=== PATIENT | female | born 1975 | race Caucasian/White ===

== ENCOUNTER 2017-04-05 04:19 | Emergency (ER) | payer BC, OTHER ==
[2017-04-05] MEDS ORDERED: METOCLOPRAMIDE 10 MG/2 ML VIAL IVP STA (04:28)
[2017-04-05] MEDS ORDERED: diphenhydrAMINE INJ 50 MG/ML VIAL IVP STA (04:28)
[2017-04-05] MEDS ORDERED: KETOROLAC 60 MG/2 ML VIAL IVP STA (04:28)
[2017-04-05] MEDS ORDERED: SODIUM CHLORIDE 0.9% 1,000 ML IV ONE (04:28)
--- NOTE | 2017-04-05 04:31 | ED Physician Documentation ---
PD HPI HEADACHE - Stated complaint Stated Complaint: HEADACHE,HIGH BLOOD PRESSURE - Chief complaint Chief Complaint: Neuro - History obtained from History obtained from: Patient - History of Present Illness Timing - onset: How many days ago (3) Timing - onset during: Rest Timing - details: Gradual onset, Still present, Intermittant Location: Front, Global Quality: Aching, Stabbing Associated symptoms: Nausea, Vomiting. No: Fever, Stiff neck, Weakness, Numbness Worsened by: Light, Noise Similar symptoms before: Work up / diagnostics, Treatment Recently seen: Not recently seen - Additional information Additional information: Patient is a 41 year old female with a history of headaches who is presenting to the emergency department for headache. patient states that it started a few days ago. it started slowly and got progressively worse. patient states that it is typical of her migraines but it wont go away. Patient states that she has been throwing up due to the pain. Patient denies any fever, chills or neck pain. Review of Systems Constitutional: denies: Fever, Chills Eyes: reports: Photophobia. denies: Discharge, Irritation Ears: denies: Ear pain, Drainage/discharge Nose: denies: Congestion, Sinus pressure / pain Throat: denies: Oral lesions / sores, Sore throat Cardiac: denies: Chest pain / pressure, Palpitations Respiratory: denies: Dyspnea, Cough, Wheezing GI: denies: Nausea, Vomiting : reports: Reviewed and negative Skin: reports: Reviewed and negative Musculoskeletal: denies: Neck pain, Back pain, Extremity pain Neurologic: reports: Headache. 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 HEENT: Tonsil/Adenoidectomy - Present Medications Home Medications: Ambulatory Orders Medication Instructions Recorded Confirmed Aspirin/Acetaminophen/Caffeine 2 each PO DAILY PRN 09/27/14 04/05/17 [Excedrin Migraine Caplet] Ibuprofen 600 - 800 mg PO DAILY 09/27/14 12/21/14 Propranolol [Inderal] 10 mg PO TID PRN 09/27/14 04/05/17 - Allergies Allergies/Adverse Reactions: Allergies Allergy/AdvReac Type Severity Reaction Status Date / Time Sulfa (Sulfonamide AdvReac Intermediate Hives Verified 04/05/17 04:26 Antibiotics) - Social History Does the pt smoke?: No Smoking Status: Never smoker Does the pt drink ETOH?: No Does the pt have substance abuse?: No - Immunizations Immunizations are current?: Yes - POLST Patient has POLST: No POLST Status: Full Code PD ED PE NORMAL - Vitals Vital signs reviewed: Yes - General General: Alert and oriented X 3 - HEENT HEENT: Atraumatic - Neck Neck: Supple, no meningeal sign - Cardiac Cardiac: RRR, No murmur - Respiratory Respiratory: No respiratory distress - Derm Derm: Normal color, No rash - Neuro Neuro: Alert and oriented X 3, tube man 2-12 intact, No motor deficit, No sensory deficit, Normal speech Eye Opening: Spontaneous Motor: Obeys Commands Verbal: Oriented GCS Score: 15 PD ED PE EXPANDED - General General: Alert, Disheveled, poorly kept, In Pain - HEENT HEENT: Dry mucous membranes - Eyes Eyes: Other (bilateral dilated pupils) Results - Vitals Vitals: Vital Signs - 24 hr 04/05/17 04/05/17 04/05/17 04:24 04:55 06:00 Temperature 36.2 C L Heart Rate 78 112 H 120 H Respiratory 20 22 20 Rate Blood Pressure 164/100 H 180/104 H 176/98 H O2 Saturation 96 98 100 Oxygen O2 Source Nasal cannula Oxygen Flow Rate 2 - EKG (time done) 0552 Rate: Rate (enter#) (70) Rhythm: NSR [place]: Normal Intervals: Normal [place] Ischemia: T wave inversion, Other (t wave inversions in v2 and V3 consistent with wellen's criteria) Compare to prior EKG: Changed from prior EKG - Labs Labs: Laboratory Tests 04/05/17 04/05/17 04/05/17 04:45 04:45 04:45 WBC 15.5 H RBC 5.17 Hgb 15.0 Hct 45.3 MCV 87.5 MCH 29.1 MCHC 33.2 RDW 14.0 Plt Count 348 MPV 9.3 Neut # 13.9 H Lymph # 1.1 L King # 0.4 Eos # 0.0 Baso # 0.1 Absolute Nucleated RBC 0.00 Nucleated RBC % 0.0 D-Dimer Sodium 141 Potassium 3.6 Chloride 103 Carbon Dioxide 22 Anion Gap 16.0 H BUN 16 Creatinine 1.0 Estimated GFR (MDRD) 61 L Glucose 162 H Calcium 10.3 Total Bilirubin 1.0 AST 24 ALT 22 Alkaline Phosphatase 62 Troponin I 0.08 Total Protein 9.1 H Albumin 5.8 H Globulin 3.3 Albumin/Globulin Ratio 1.8 Lipase 56 H Urine Color Urine Clarity Urine pH Ur Specific [place] Urine Protein Urine Glucose (UA) Urine Ketones Urine Occult Blood Urine Nitrite Urine Bilirubin Urine Urobilinogen Ur Leukocyte Esterase Urine RBC Urine WBC Ur Squamous Epith Cells Urine Bacteria Urine Mucus Ur Microscopic Review Urine Culture Comments Urine HCG, Qual Urine Opiates Screen Ur Oxycodone Screen Urine Methadone Screen Ur Propoxyphene Screen Ur Barbiturates Screen Ur Tricyclics Screen Ur Phencyclidine Scrn Ur Amphetamine Screen U Methamphetamines Scrn U Benzodiazepines Scrn Urine Cocaine Screen U Cannabinoids Screen 04/05/17 04/05/17 04/05/17 04:45 05:26 05:26 WBC RBC Hgb Hct MCV MCH MCHC RDW Plt Count MPV Neut # Lymph # King # Eos # Baso # Absolute Nucleated RBC Nucleated RBC % D-Dimer < 200.0 L Sodium Potassium Chloride Carbon Dioxide Anion Gap BUN Creatinine Estimated GFR (MDRD) Glucose Calcium Total Bilirubin AST ALT Alkaline Phosphatase Troponin I Total Protein Albumin Globulin Albumin/Globulin Ratio Lipase Urine Color YELLOW Urine Clarity CLEAR Urine pH 6.0 Ur Specific [place] >=1.030 H Urine Protein 30 H Urine Glucose (UA) NEGATIVE Urine Ketones 15 H Urine Occult Blood TRACE-INTA Urine Nitrite NEGATIVE Urine Bilirubin NEGATIVE Urine Urobilinogen 0.2 (NORMAL) Ur Leukocyte Esterase NEGATIVE Urine RBC 0-5 Urine WBC 0-3 Ur Squamous Epith Cells MOD Squamous H Urine Bacteria Few Urine Mucus Moderate Strands Ur Microscopic Review INDICATED Urine Culture Comments NOT INDICATED Urine HCG, Qual NEGATIVE Urine Opiates Screen NEGATIVE Ur Oxycodone Screen NEGATIVE Urine Methadone Screen NEGATIVE Ur Propoxyphene Screen NEGATIVE Ur Barbiturates Screen NEGATIVE Ur Tricyclics Screen NEGATIVE Ur Phencyclidine Scrn NEGATIVE Ur Amphetamine Screen NEGATIVE U Methamphetamines Scrn NEGATIVE U Benzodiazepines Scrn NEGATIVE Urine Cocaine Screen NEGATIVE U Cannabinoids Screen POSITIVE H PD MEDICAL DECISION MAKING - ED course Complexity details: reviewed old records, reviewed results, re-evaluated patient , considered differential, d/w patient, d/w home care consultant ED course: Patient was seen and examined at bedside. IV access was gained and labs were drawn. Patient was treated with toradol, reglan benadryl and fluids. Patient had no focal neurological deficits. Upon re-evaluation patient stated that her headache was getting better but she developed severe chest pain with radiation to her back and worse with inspiration. troponin, d-dimer and ekg were ordered. EKG showed deep t wave inversions in V2 and V3. Patient's previous ekgs were viewed and had no inversions but similar r wave progression. It fit wellen's criteria. [place] was contacted and STEMI was called. Patient was treated with aspirin and a heparin drip was started. Patient was transferred in critical condition. Departure - Departure Disposition: 02 Transfer Acute Care Hosp Clinical Impression: STEMI (ST elevation myocardial infarction) Condition: Critical
[2017-04-05 04:57] LABS: BASOPHILS # (AUTO) 0.1 10^3/uL (0.0-0.1); BASOPHILS % (AUTO) 0.5 %; EOSINOPHILS % (AUTO) 0.1 %; LYMPHOCYTES # (AUTO) 1.1 10^3/uL (1.5-3.5); LYMPHOCYTES % (AUTO) 7.1 %; MEAN CORPUSCULAR HEMOGLOBIN 29.1 pg (27.0-31.0); MEAN CORPUSCULAR HGB CONC 33.2 g/dL (32.0-36.0); MEAN CORPUSCULAR VOLUME 87.5 fL (81.0-99.0); MEAN PLATELET VOLUME 9.3 fL (7.9-10.8); MONOCYTES # (AUTO) 0.4 10^3/uL (0.0-1.0); MONOCYTES % (AUTO) 2.6 %; NEUTROPHILS # (AUTO) 13.9 10^3/uL (1.5-6.6); NEUTROPHILS % (AUTO) 89.7 %; PLT - PLATELET COUNT 348 10^3/uL (130-450); RED BLOOD COUNT 5.17 10^6/uL (4.20-5.40); WHITE BLOOD COUNT 15.5 x10^3/uL (4.8-10.8)
[2017-04-05 05:06] LABS: ALBUMIN 5.8 g/dL (3.2-5.5); ALBUMIN/GLOBULIN RATIO 1.8 (1.0-2.2); CALCIUM 10.3 mg/dL (8.5-10.3); TOTAL PROTEIN 9.1 g/dL (6.7-8.2)
[2017-04-05] MEDS ORDERED: diazePAM INJ 5 MG/ML SYRINGE IVP STA (05:39)
[2017-04-05] MEDS ORDERED: LORazepam 2 MG/ML VIAL IVP STA (05:48)
[2017-04-05 05:59] LABS: MUDS CUTOFF CONCENTRATIONS CUTOFF CONC BELOW:
[2017-04-05 06:01] LABS: BILIRUBIN,URINE NEGATIVE (NEGATIVE); GLUCOSE, URINE (UA) NEGATIVE (NEGATIVE); KETONES,URINE (UA) 15 mg/dL (NEGATIVE); LEUKOCYTE ESTERASE, URINE NEGATIVE (NEGATIVE); NITRITE,URINE NEGATIVE (NEGATIVE); OCCULT BLOOD,URINE TRACE-INTA (NEGATIVE); PROTEIN,URINE 30 mg/dL (NEGATIVE); UROBILINOGEN,URINE 0.2 (NORMAL) E.U./dL (NORMAL)
[2017-04-05] MEDS ORDERED: ASPIRIN CHEW 81 MG TABLET PO STA (06:03)
[2017-04-05] MEDS ORDERED: HEPARIN 25,000 UNITS/500 ML NS 25,000 UNIT/500 ML BAG IV STA (06:03)
[2017-04-05] MEDS ORDERED: HEPARIN 5,000 UNIT/ML VIAL IVP ONE (06:03)
[2017-04-05 06:04] LABS: CLARITY,URINE CLEAR (CLEAR); HCG UR QUAL NEGATIVE
[2017-04-05 06:08] LABS: BACTERIA,URINE Few /HPF (None Seen); MUCUS,URINE Moderate Strands; RBC,URINE 0-5 /HPF (0-5); SQUAMOUS EPITHELIAL CELL,UR MOD Squamous (<= Few)
[2017-04-05 06:25] VITALS: BP 176/98
[2017-04-05 06:30] LABS: AMPHETAMINE SCREEN,URINE NEGATIVE (NEGATIVE); BENZODIAZEPINES SCREEN, URINE NEGATIVE (NEGATIVE); COCAINE SCREEN URINE NEGATIVE (NEGATIVE); METHADONE SCREEN, URINE NEGATIVE (NEGATIVE); METHAMPHETAMINES SCREEN, URINE NEGATIVE (NEGATIVE); OPIATE SCREEN, URINE NEGATIVE (NEGATIVE); OXYCODONE SCREEN, URINE NEGATIVE (NEGATIVE); PROPOXYPHENE SCREEN, URINE NEGATIVE (NEGATIVE); TRICYCLIC ANTIDEPRESSANT,URINE NEGATIVE (NEGATIVE)
== END 2017-04-05 06:09 | disposition short-term general hospital (02) ==
LOC: ED 04:19
DX: I21.3 ST elevation (STEMI) myocardial infarction of unspecified site (principal); I45.81 Long QT syndrome; Z79.82 Long term (current) use of aspirin
CPT/HCPCS: 36415; 80053; 80306; 81001; 81025; 83690; 84484; 85025; 85379; 93005; 96361; 96374; 96375; 99285; A9270; J2060; 81003; 87086

== ENCOUNTER 2017-04-05 06:23 | Outpatient (CLI) | payer OTHER | END 2017-04-05 06:24 | disposition short-term general hospital (02) | LOC: EMS 06:23 | PROVIDERS: ATTEND Surgery | DX: I21.3 ST elevation (STEMI) myocardial infarction of unspecified site (principal) | CPT/HCPCS: A0425; A0427 ==

== ENCOUNTER 2017-08-26 13:06 | Outpatient (CLI) | payer OTHER | END 2017-08-26 13:07 | disposition home or self-care (01) | LOC: LAB.F 13:06 | PROVIDERS: ATTEND Physician Assistant Medical | DX: E55.9 Vitamin D deficiency, unspecified (principal) | CPT/HCPCS: 36415; 82306 ==

== ENCOUNTER 2018-01-27 23:28 | Emergency (ER) | payer OTHER ==
--- NOTE | 2018-01-27 23:45 | ED Physician Documentation ---
PD HPI CHEST PAIN - Stated complaint Stated Complaint: VOMITING,CHEST PAIN - Chief complaint Chief Complaint: Cardiac - History obtained from History obtained from: Patient - History of Present Illness Timing - onset: Enter time (18:30), Today Timing - onset during: Light activity (preparing food at home) Timing - duration: Hours Timing - details: Abrupt onset Pain level now: 6 Quality: Pain Location: Substernal, Left chest, Epigastric Radiation: Back Improved by: Nothing Worsened by: Other (no exacerbating factors) Associated symptoms: Nausea, Vomiting. No: Shortness of air, Palpitations, Cough Similar symptoms before: Other (had similar episode in March (2017), transferred to [facility] for possible STEMI; patient indicates that she was subsequently discharged from [facility] and was told there was no evidence of DE on their evaluation and her symptoms were possibly related to her migraines.) - Additional information Additional information: sudden onset of nausea, rapidly followed by vomiting, 6:30 PM tonight while preparing dinner. She subsequently had onset of lower chest and upper abdominal pain that radiates around flanks to her back Review of Systems Constitutional: reports: Reviewed and negative Cardiac: reports: Chest pain / pressure. denies: Palpitations, Pedal edema, Calf pain Respiratory: reports: Reviewed and negative GI: reports: Abdominal Pain, Nausea, Vomiting. 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 HEENT: Tonsil/Adenoidectomy - Present Medications Home Medications: Ambulatory Orders Medication Instructions Recorded Confirmed Aspirin/Acetaminophen/Caffeine 2 each PO DAILY PRN 09/27/14 04/05/17 [Excedrin Migraine Caplet] Ibuprofen 600 - 800 mg PO DAILY 09/27/14 12/21/14 Propranolol [Inderal] 10 mg PO TID PRN 09/27/14 04/05/17 Lidocaine HCl [Lidocaine HCl 15 ml PO TID PRN #100 ml 01/28/18 Viscous] Promethazine [Phenergan] 25 - 50 mg PO Q6H PRN #10 tab 01/28/18 oxyCODONE [Roxicodone] 5 - 10 mg PO Q6H PRN #14 tablet 01/28/18 - Allergies Allergies/Adverse Reactions: Allergies Allergy/AdvReac Type Severity Reaction Status Date / Time zolpidem [From Ambien] Allergy Unknown Verified 01/28/18 07:41 Sulfa (Sulfonamide AdvReac Intermediate Hives Verified 01/27/18 23:43 Antibiotics) - Social History Does the pt smoke?: No Smoking Status: Never smoker Does the pt drink ETOH?: No Does the pt have substance abuse?: No - Immunizations Immunizations are current?: Yes - POLST Patient has POLST: No POLST Status: Full Code PD ED PE NORMAL - Vitals Vital signs reviewed: Yes - General General: Alert and oriented X 3, Well developed/nourished, Other (appears to be in painful distress; tremulous) - HEENT HEENT: PERRL, EOMI, Moist mucous membranes - Neck Neck: Supple, no meningeal sign - Cardiac Cardiac: No murmur, No gallop, No rub - Respiratory Respiratory: No respiratory distress, Clear bilaterally - Abdomen Abdomen: Soft, Non distended, Other (mild/moderate tenderness to palpation epigastrium without rebound or guarding) - Back Back: No CVA TTP - Derm Derm: Normal color, Warm and dry - Extremities Extremities: No edema PD ED PE EXPANDED - Cardiac Cardiac: Tachy, Regular Rhythm Results - Vitals Vitals: Vital Signs - 24 hr 01/28/18 01/28/18 08:11 08:49 Heart Rate 74 86 Respiratory 18 16 Rate Blood Pressure 133/108 H 149/85 H O2 Saturation 98 99 Oxygen O2 Source Room air - EKG (time done) No standard instances Rate: Rate (enter#) (128), Tachy Rhythm: Sinus tachycardia [place]: Normal Intervals: Normal [place] QRS: Normal Ischemia: Normal ST segments. No: T wave inversion Other comments: Other comments (artifact due to tremulousness) - Labs Labs: Laboratory Tests 01/27/18 01/27/18 01/27/18 23:30 23:30 23:30 WBC 11.8 H RBC 5.15 Hgb 15.3 Hct 46.3 MCV 89.9 MCH 29.6 MCHC 33.0 RDW 14.1 Plt Count 277 MPV 9.0 Neut # (Auto) 9.3 H Lymph # (Auto) 1.8 [place] # (Auto) 0.5 Eos # (Auto) 0.0 Baso # (Auto) 0.1 Absolute Nucleated RBC 0.00 Nucleated RBC % 0.0 D-Dimer Sodium 142 Potassium 3.5 Chloride 103 Carbon Dioxide 23 Anion Gap 16.0 H BUN 8 Creatinine 1.0 Estimated GFR (MDRD) 60 L Glucose 107 H Calcium 10.3 Total Bilirubin 0.8 AST 25 ALT 12 Alkaline Phosphatase 55 Troponin I < 0.04 Total Protein 9.7 H Albumin 6.4 H Globulin 3.3 Albumin/Globulin Ratio 1.9 Lipase 63 H 01/27/18 23:30 WBC RBC Hgb Hct MCV MCH MCHC RDW Plt Count MPV Neut # (Auto) Lymph # (Auto) [place] # (Auto) Eos # (Auto) Baso # (Auto) Absolute Nucleated RBC Nucleated RBC % D-Dimer < 200.0 L Sodium Potassium Chloride Carbon Dioxide Anion Gap BUN Creatinine Estimated GFR (MDRD) Glucose Calcium Total Bilirubin AST ALT Alkaline Phosphatase Troponin I Total Protein Albumin Globulin Albumin/Globulin Ratio Lipase - Rads (name of study) chest xray Radiology: Prelim report reviewed, See rad report CT A/P Radiology: Prelim report reviewed, See rad report PD MEDICAL DECISION MAKING - ED course Complexity details: reviewed old records (records reviewed include ED visit from March 2017 as well as records from [facility] (where she was transferred; records reviewed on )), reviewed results, re-evaluated patient, considered differential, d/w patient ED course: nausea controlled with IV phenergan (she had taken 8mg TL Zofran [employer] without improvement). Her pain waxed and waned despite toradol, GI cocktail, and repeated doses of morphine; she reported improvement after each of these were given. She appeared more comfortable after initial medications were given, although she appeared to still be in pain until late in ED stay. I offered admission for ongoing symptom control and further testing, but she reports she feels comfortable enough to go home. ED tests are nondiagnostic although CT A/P suggests gastritis/PUD, which would be c/w symptoms and location of discomfort. Encouraged to return immediately if worse in any way, and to f/u with PMD Departure - Departure Disposition: 01 Home, Self Care Clinical Impression: Abdominal pain Qualifiers: Abdominal location: epigastric Qualified Code(s): R10.13 - Epigastric pain Condition: Good Instructions: ED Abdominal Pain Unkn Cause Follow-Up: Keiko Sánchez PA-C [Primary Care Provider] - Prescriptions: Lidocaine HCl [Lidocaine HCl Viscous] 15 ml PO TID PRN #100 ml PRN Reason: Abdominal Pain oxyCODONE [Roxicodone] 5 - 10 mg PO Q6H PRN #14 tablet PRN Reason: Pain Promethazine [Phenergan] 25 - 50 mg PO Q6H PRN #10 tab PRN Reason: Nausea / Vomiting Comments: You should take either Prilosec or Nexium once per day for 2 weeks. These are both available [id number] and thus no prescription is necessary; follow instructions on label. Discharge Date/Time: 01/28/18 09:00
[2018-01-27 23:55] LABS: BASOPHILS # (AUTO) 0.1 10^3/uL (0.0-0.1); BASOPHILS % (AUTO) 0.9 %; EOSINOPHILS % (AUTO) 0.1 %; HGB - HEMOGLOBIN 15.3 g/dL (12.0-16.0); LYMPHOCYTES # (AUTO) 1.8 10^3/uL (1.5-3.5); LYMPHOCYTES % (AUTO) 15.2 %; MEAN CORPUSCULAR HEMOGLOBIN 29.6 pg (27.0-31.0); MEAN CORPUSCULAR VOLUME 89.9 fL (81.0-99.0); MONOCYTES # (AUTO) 0.5 10^3/uL (0.0-1.0); MONOCYTES % (AUTO) 4.4 %; NEUTROPHILS # (AUTO) 9.3 10^3/uL (1.5-6.6); NEUTROPHILS % (AUTO) 79.4 %; PLT - PLATELET COUNT 277 10^3/uL (130-450); RED BLOOD COUNT 5.15 10^6/uL (4.20-5.40); RED CELL DISTRIBUTION WIDTH 14.1 % (12.0-15.0); WHITE BLOOD COUNT 11.8 x10^3/uL (4.8-10.8)
[2018-01-28] MEDS ORDERED: PROMETHAZINE INJ 25 MG in SODIUM CHLORIDE 0.9% 50 ML IV STA (00:01)
[2018-01-28] MEDS ORDERED: MORPHINE 10 MG/ML VIAL IVP STA ×2 (00:01→04:55)
[2018-01-28 00:15] LABS: ALBUMIN 6.4 g/dL (3.2-5.5); ALBUMIN/GLOBULIN RATIO 1.9 (1.0-2.2); BILIRUBIN,TOTAL 0.8 mg/dL (0.2-1.0); CALCIUM 10.3 mg/dL (8.5-10.3); TOTAL PROTEIN 9.7 g/dL (6.7-8.2)
--- NOTE | 2018-01-28 01:20 | XRAY Report ---
Reason: chest pain Procedure Date: 01/28/2018 Accession Number: [id number] / [id number] Procedure: XR - Chest 2 View X-Ray CPT Code: 14788 FULL RESULT: EXAM: CHEST RADIOGRAPHY EXAM DATE: 01/28/2018 01:11 AM. CLINICAL HISTORY: Chest pain. COMPARISON: None. TECHNIQUE: 2 views. FINDINGS: Lungs/Pleura: No focal opacities evident. No pleural effusion. No pneumothorax. Normal volumes. Mediastinum: Heart and mediastinal contours are unremarkable. Other: None. IMPRESSION: Normal 2-view chest radiography. RADIA
[2018-01-28] MEDS ORDERED: KETOROLAC 60 MG/2 ML VIAL IVP STA (01:23)
[2018-01-28] MEDS ORDERED: MORPHINE 2 MG/ML CARPUJECT IVP STA (01:23)
[2018-01-28] MEDS ORDERED: SODIUM CHLORIDE 0.9% 1,000 ML IV STA (01:55)
[2018-01-28] MEDS ORDERED: IOPAMIDOL-300 100 ML VIAL ONE (02:43)
[2018-01-28] MEDS ORDERED: IOPAMIDOL-300 100 ML VIAL IVP ONE (03:15)
--- NOTE | 2018-01-28 03:21 | CT Report ---
Reason: abd. pain Procedure Date: 01/28/2018 Accession Number: [id number] / [id number] Procedure: CT - Abdomen/Pelvis W/ CPT Code: FULL RESULT: EXAM: CT ABDOMEN AND PELVIS EXAM DATE: 01/28/2018 03:00 AM. CLINICAL HISTORY: Abdominal pain. COMPARISONS: None. TECHNIQUE: Routine helical CT imaging was performed through the abdomen and pelvis. IV contrast: 100 mL Isovue 300. Enteric contrast: No. Reconstructions: Coronal and sagittal. In accordance with CT protocol optimization, one or more of the following dose reduction techniques were utilized for this exam: automated exposure control, adjustment of mA and/or KV based on patient size, or use of iterative reconstructive technique. FINDINGS: Lung Bases: Unremarkable. Liver: Unremarkable. No suspicious masses. Gallbladder/Bile Ducts: Unremarkable. Spleen: Unremarkable. Pancreas: Unremarkable. Adrenal Glands: Unremarkable. Kidneys: Unremarkable. No suspicious masses or hydronephrosis. Peritoneal Cavity/Bowel: Distal stomach appears mildly edematous. No perigastric inflammatory changes seen. No free air or significant free fluid. No masses or adenopathy. The appendix is normal. No excessive stool burden. Pelvic Organs: Bladder, uterus, and adnexa appear unremarkable. Vasculature: No aneurysms or other significant abnormality. Bones: No significant abnormality. Other: None. IMPRESSION: Subtle findings suspicious for distal gastritis/peptic ulcer disease. No apparent complication if real. Consider endoscopy. RADIA
[2018-01-28] MEDS ORDERED: MAG HYDROX/AL HYDROX/SIMETH 30 ML UDC PO STA (03:47)
[2018-01-28] MEDS ORDERED: LIDOCAINE VISCOUS 2% 15 ML UDC MM STA ×2 (03:47→04:56)
[2018-01-28] MEDS ORDERED: PHENobarb/HYOSCY/ATROPINE/SCOP 5 ML UDC PO STA (03:47)
[2018-01-28] MEDS ORDERED: PANTOPRAZOLE 40 MG TABLET PO STA (07:46)
[2018-01-28] MEDS ORDERED: oxyCODONE 5 MG TABLET PO STA (07:58)
[2018-01-28 08:52] VITALS: BP 149/85
== END 2018-01-28 09:00 | disposition home or self-care (01) ==
LOC: ED 23:28
DX: R10.13 Epigastric pain (principal); Z79.82 Long term (current) use of aspirin; R00.0 Tachycardia, unspecified
CPT/HCPCS: 36415; 71046; 74177; 80053; 83690; 84484; 85025; 85379; 93005; 96365; 96375; 96376; 99283; 99285; A9270; J7040; Q9967

== ENCOUNTER 2018-01-31 06:35 | Emergency (ER) | payer OTHER ==
[2018-01-31] MEDS ORDERED: IOPAMIDOL-300 100 ML VIAL IVP ONE ×2 (06:36→12:48)
[2018-01-31 07:09] LABS: BASOPHILS # (AUTO) 0.1 10^3/uL (0.0-0.1); BASOPHILS % (AUTO) 1.1 %; EOSINOPHILS % (AUTO) 0.1 %; HGB - HEMOGLOBIN 13.9 g/dL (12.0-16.0); LYMPHOCYTES # (AUTO) 0.8 10^3/uL (1.5-3.5); LYMPHOCYTES % (AUTO) 7.4 %; MEAN CORPUSCULAR HEMOGLOBIN 29.9 pg (27.0-31.0); MEAN CORPUSCULAR HGB CONC 32.6 g/dL (32.0-36.0); MEAN CORPUSCULAR VOLUME 91.5 fL (81.0-99.0); MEAN PLATELET VOLUME 9.2 fL (7.9-10.8); MONOCYTES # (AUTO) 0.2 10^3/uL (0.0-1.0); MONOCYTES % (AUTO) 1.8 %; NEUTROPHILS % (AUTO) 89.6 %; PLT - PLATELET COUNT 219 10^3/uL (130-450); RED BLOOD COUNT 4.65 10^6/uL (4.20-5.40); RED CELL DISTRIBUTION WIDTH 14.1 % (12.0-15.0); WHITE BLOOD COUNT 11.1 x10^3/uL (4.8-10.8)
[2018-01-31] MEDS ORDERED: FAMOTIDINE 20 MG in SODIUM CHLORIDE 0.9% 50 ML IV ONE (07:09)
[2018-01-31] MEDS ORDERED: SODIUM CHLORIDE 0.9% 1,000 ML IV ONE ×2 (07:09→11:49)
[2018-01-31] MEDS ORDERED: ONDANSETRON 4 MG/2 ML VIAL IVP STA ×2 (07:09→14:25)
[2018-01-31] MEDS ORDERED: fentaNYL 100 MCG/2 ML VIAL IVP STA (07:15)
[2018-01-31] MEDS ORDERED: MAG HYDROX/AL HYDROX/SIMETH 30 ML UDC PO STA (07:15)
[2018-01-31] MEDS ORDERED: LIDOCAINE VISCOUS 2% 15 ML UDC MM STA (07:15)
[2018-01-31] MEDS ORDERED: PROMETHAZINE INJ 25 MG in SODIUM CHLORIDE 0.9% 50 ML IV STA (07:36)
[2018-01-31] MEDS ORDERED: LORazepam 2 MG/ML VIAL IVP STA (07:36)
--- NOTE | 2018-01-31 07:50 | XRAY Report ---
Reason: cp, N/V Procedure Date: 01/31/2018 Accession Number: [id number] / [id number] Procedure: XR - Chest 2 View X-Ray CPT Code: 01003 FULL RESULT: EXAM: CHEST RADIOGRAPHY EXAM DATE: 01/31/2018 07:18 AM. CLINICAL HISTORY: Cp, N/V. COMPARISON: CHEST 2 VIEW 01/28/2018 12:58 AM. TECHNIQUE: 2 views. FINDINGS: Lungs/Pleura: No focal consolidation evident. Minimal biapical scarring. No pleural effusion. No pneumothorax. Upper normal volumes. Mediastinum: Heart and mediastinal contours are normal. Other: None. IMPRESSION: No radiographically apparent acute abnormality in the chest. No significant change from prior. RADIA
[2018-01-31] MEDS ORDERED: MORPHINE 2 MG/ML CARPUJECT ONE (08:18)
[2018-01-31] MEDS ORDERED: MORPHINE 2 MG/ML CARPUJECT IVP STA (08:26)
--- NOTE | 2018-01-31 08:52 | ED Physician Documentation ---
History of Present Illness - Stated complaint Stated Complaint: NAUSEA/VOMITING/CHEST PX - Chief complaint Chief Complaint: Cardiac - Additonal information Additional information: 42-year-old female presents the emergency department with epigastric pain and back pain for the past several days. The patient describes it more as a sharp stabbing chest pain but the pain is mostly in her lower chest upper abdomen. The patient also reports a pain in her mid back which wraps around into her chest. The patient reports having shortness of breath. The patient reports of vomiting. No specific triggering factors. No relieving factors. Symptoms are described as severe. No other associated symptoms Review of Systems Constitutional: denies: Fever, Myalgias Eyes: denies: Loss of vision Ears: denies: Ear pain Nose: denies: Congestion Throat: denies: Sore throat Cardiac: reports: Chest pain / pressure GI: reports: Abdominal Pain, Nausea, Vomiting : denies: Dysuria Skin: denies: Rash Musculoskeletal: reports: Neck pain Neurologic: denies: Syncope Immunocompromised: denies: Chemotherapy PD PAST MEDICAL HISTORY - Past Medical History Past Medical History: Yes Cardiovascular: Murmur, Arrhythmia Respiratory: None Neuro: Migraines Endocrine/Autoimmune: None Musculoskeletal: Chronic back pain, Other - Past Surgical History Past Surgical History: Yes /CLAIMS DIRECTOR: section HEENT: Tonsil/Adenoidectomy - Present Medications Home Medications: Ambulatory Orders Medication Instructions Recorded Confirmed Aspirin/Acetaminophen/Caffeine 2 each PO DAILY PRN 09/27/14 04/05/17 [Excedrin Migraine Caplet] Ibuprofen 600 - 800 mg PO DAILY 09/27/14 12/21/14 Propranolol [Inderal] 10 mg PO TID PRN 09/27/14 04/05/17 Lidocaine HCl [Lidocaine HCl 15 ml PO TID PRN #100 ml 01/28/18 Viscous] Promethazine [Phenergan] 25 - 50 mg PO Q6H PRN #10 tab 01/28/18 oxyCODONE [Roxicodone] 5 - 10 mg PO Q6H PRN #14 tablet 01/28/18 Metoclopramide [Reglan] 10 mg PO Q6H PRN #30 tablet 01/31/18 Ondansetron HCl [Zofran] 4 mg PO Q8HR PRN #30 tablet 01/31/18 Pantoprazole [Protonix] 40 mg PO DAILY #30 tablet 01/31/18 Sucralfate [Carafate] 1 gm PO QID #120 tablet 01/31/18 - Allergies Allergies/Adverse Reactions: Allergies Allergy/AdvReac Type Severity Reaction Status Date / Time zolpidem [From Ambien] Allergy Unknown Verified 01/31/18 06:47 Sulfa (Sulfonamide AdvReac Intermediate Hives Verified 01/31/18 06:47 Antibiotics) - Social History Does the pt smoke?: No Smoking Status: Never smoker Does the pt drink ETOH?: No Does the pt have substance abuse?: No - Immunizations Immunizations are current?: Yes - POLST Patient has POLST: No POLST Status: Full Code PD ED PE NORMAL - General General: Alert and oriented X 3 - HEENT HEENT: Atraumatic, PERRL, EOMI, Ears normal, Moist mucous membranes - Neck Neck: Supple, no meningeal sign - Cardiac Cardiac: RRR, Strong equal pulses - Respiratory Respiratory: No respiratory distress, Clear bilaterally - Abdomen Abdomen: Soft, Non distended. No: Non tender (Tender to palpation in the epigastrium, no rebound or peritoneal signs) - Back Back: No: No spinal TTP (Tender in the mid thoracic region mostly in the paraspinal muscles) - Derm Derm: Normal color - Extremities Extremities: No deformity, No tenderness to palpate, No calf tenderness / cord - Neuro Neuro: Alert and oriented X 3, Normal speech - Psych Psych: Normal affect PD ED PE EXPANDED - General General: In Pain, In distress Results - Vitals Vitals: Vital Signs - 24 hr 01/31/18 01/31/18 01/31/18 06:43 08:06 09:22 Temperature 36.8 C Heart Rate 96 101 H 102 H Respiratory 20 14 18 Rate Blood Pressure 145/90 H 134/92 H 127/81 H O2 Saturation 100 95 100 01/31/18 01/31/18 01/31/18 10:37 11:28 11:42 Temperature Heart Rate 108 H 101 H 125 H Respiratory 14 20 20 Rate Blood Pressure 140/95 H 151/93 H 132/81 H O2 Saturation 100 97 100 01/31/18 01/31/18 01/31/18 12:35 12:40 13:55 Temperature Heart Rate 110 H 117 H 111 H Respiratory 18 19 18 Rate Blood Pressure 128/92 H 133/93 H 138/101 H O2 Saturation 99 99 99 01/31/18 01/31/18 14:40 15:54 Temperature Heart Rate 118 H 108 H Respiratory 19 18 Rate Blood Pressure 141/93 H 156/95 H O2 Saturation 100 99 Oxygen O2 Source Room air - EKG (time done) No standard instances Rhythm: NSR Intervals: Normal PA, QRS normal QRS: Normal Ischemia: Non specific changes Compare to prior EKG: Other (No acute ischemic changes when compared to a recent EKG) - Labs Labs: Laboratory Tests 01/31/18 01/31/18 01/31/18 06:55 08:49 08:49 WBC 11.1 H RBC 4.65 Hgb 13.9 Hct 42.6 MCV 91.5 MCH 29.9 MCHC 32.6 RDW 14.1 Plt Count 219 MPV 9.2 Neut # (Auto) 10.0 H Lymph # (Auto) 0.8 L [place] # (Auto) 0.2 Eos # (Auto) 0.0 Baso # (Auto) 0.1 Absolute Nucleated RBC 0.00 Nucleated RBC % 0.0 D-Dimer Sodium 140 Potassium 3.8 Chloride 105 Carbon Dioxide 24 Anion Gap 11.0 BUN 13 Creatinine 0.8 Estimated GFR (MDRD) 78 L Glucose 110 H Calcium 9.2 Total Bilirubin 0.7 AST 22 ALT 11 Alkaline Phosphatase 45 Troponin I < 0.04 Total Protein 7.9 Albumin 5.1 Globulin 2.8 Albumin/Globulin Ratio 1.8 Lipase 48 Serum HCG, Qual Urine Color Urine Clarity Urine pH Ur Specific [place] Urine Protein Urine Glucose (UA) Urine Ketones Urine Occult Blood Urine Nitrite Urine Bilirubin Urine Urobilinogen Ur Leukocyte Esterase Ur Microscopic Review Urine Culture Comments 01/31/18 01/31/18 01/31/18 08:49 08:49 13:30 WBC RBC Hgb Hct MCV MCH MCHC RDW Plt Count MPV Neut # (Auto) Lymph # (Auto) [place] # (Auto) Eos # (Auto) Baso # (Auto) Absolute Nucleated RBC Nucleated RBC % D-Dimer < 200.0 L Sodium Potassium Chloride Carbon Dioxide Anion Gap BUN Creatinine Estimated GFR (MDRD) Glucose Calcium Total Bilirubin AST ALT Alkaline Phosphatase Troponin I Total Protein Albumin Globulin Albumin/Globulin Ratio Lipase Serum HCG, Qual NEGATIVE Urine Color YELLOW Urine Clarity CLEAR Urine pH 7.5 Ur Specific [place] 1.015 Urine Protein NEGATIVE Urine Glucose (UA) NEGATIVE Urine Ketones NEGATIVE Urine Occult Blood NEGATIVE Urine Nitrite NEGATIVE Urine Bilirubin NEGATIVE Urine Urobilinogen 0.2 (NORMAL) Ur Leukocyte Esterase NEGATIVE Ur Microscopic Review NOT INDICATED Urine Culture Comments NOT INDICATED - Rads (name of study) CXR Radiology: Final report received CT Chest Radiology: Final report received (1. Aberrant right subclavian artery (normal variant). Otherwise, normal chest CT angiogram. No aneurysm or dissection. ) PD MEDICAL DECISION MAKING - ED course ED course: The patient's case was discussed with the on-call general surgeon Dr. Ingram. He came and evaluated the patient in the emergency department. He independently reviewed the patient's lab work, and examined the patient. He recommended a CT scan and a calcium channel amado. After the results of the imaging he reevaluated the patient. Presently, he does not feel that the patient requires an emergent EGD or emergent surgery. He recommends starting the patient on a proton pump inhibitor and Carafate. He recommends continuing the endoscopy that is scheduled for an urgent outpatient evaluation. The case was discussed with the hospitalist Dr. Pastor who came and evaluated the patient in the emergency department. She independently assessed the patient and reviewed the patient's workup in the emergency department. Currently, she does not feel that the patient requires admission to the hospital. The patient recently had a CT scan of her abdomen and pelvis and ultrasound. Currently, I do not think these studies need to be repeated. On reevaluation the patient resting comfortably. The general surgery service and hospitalist service both do not feel that the patient requires admission. The findings and plan were discussed the patient who understands and agrees. The patient will be given prescriptions to help manage her symptoms as an outpatient. The patient is scheduled for an endoscopy as an outpatient. I recommended close follow-up with primary care. I discussed warning signs and recommended returning to the emergency department immediately for any worsening or any concerns. Departure - Departure Disposition: 01 Home, Self Care Clinical Impression: Gastritis Qualifiers: Gastritis type: unspecified gastritis Chronicity: acute Gastritis bleeding: without bleeding Qualified Code(s): K29.00 - Acute gastritis without bleeding Chest pain Qualifiers: Chest pain type: other chest pain Qualified Code(s): R07.89 - Other chest pain Vomiting Qualifiers: Vomiting type: unspecified Vomiting Intractability: unspecified Nausea presence: with nausea Qualified Code(s): R11.2 - Nausea with vomiting, unspecified Abdominal pain Qualifiers: Abdominal location: epigastric Qualified Code(s): R10.13 - Epigastric pain Condition: Good Instructions: Gastritis Follow-Up: Keiko Sánchez PA-C [Primary Care Provider] - Within 3 Days Prescriptions: Ondansetron HCl [Zofran] 4 mg PO Q8HR PRN #30 tablet PRN Reason: Nausea / Vomiting Metoclopramide [Reglan] 10 mg PO Q6H PRN #30 tablet PRN Reason: Nausea / Vomiting Pantoprazole [Protonix] 40 mg PO DAILY #30 tablet Sucralfate [Carafate] 1 gm PO QID #120 tablet Comments: Follow-up with your primary care physician this week for recheck. Please follow-up with the clinical specialist vascular as soon as possible for and upper GI scope Please return to the emergency department immediately for any worsening or any concerns.
[2018-01-31 09:14] LABS: ALBUMIN 5.1 g/dL (3.2-5.5); ALBUMIN/GLOBULIN RATIO 1.8 (1.0-2.2); BILIRUBIN,TOTAL 0.7 mg/dL (0.2-1.0); CALCIUM 9.2 mg/dL (8.5-10.3); CREATININE 0.8 mg/dL (0.4-1.0); TOTAL PROTEIN 7.9 g/dL (6.7-8.2)
[2018-01-31 09:19] LABS: HCG,QUALITATIVE BLOOD NEGATIVE
[2018-01-31] MEDS ORDERED: PANTOPRAZOLE 40 MG VIAL IV STA (09:33)
[2018-01-31] MEDS ORDERED: SUCRALFATE 1 GM/10 ML UDC PO STA (09:34)
[2018-01-31] MEDS ORDERED: HYDROmorphone 1 MG/ML CARPUJECT IVP STA (10:49)
[2018-01-31] MEDS ORDERED: diltiaZEM INJ 5 MG/ML VIAL IVP STA (12:13)
[2018-01-31] MEDS ORDERED: IOPAMIDOL-300 100 ML VIAL ONE (12:16)
--- NOTE | 2018-01-31 13:30 | CT Report ---
Reason: cp Procedure Date: 01/31/2018 Accession Number: [id number] / [id number] Procedure: CT - Chest Angio (AORTA) CPT Code: FULL RESULT: EXAM: CT ANGIOGRAM CHEST, AORTA. EXAM DATE: 01/31/2018 12:49 PM. CLINICAL HISTORY: Cp. COMPARISONS: No chest CT comparison. Standard CT of the abdomen and pelvis with contrast 1130 2017. TECHNIQUE: Routine axial helical CT angiographic imaging was performed through the chest and into the upper abdomen to just below the level of the renal artery origins. IV Contrast: ISOVUE 300 80mL. Reconstructions: Coronal, sagittal, and 3D MIP reconstructions of the aorta. In accordance with CT protocol optimization, one or more of the following dose reduction techniques were utilized for this exam: automated exposure control, adjustment of mA and/or KV based on patient size, or use of iterative reconstructive technique. FINDINGS: Vascular Structures: No aneurysm, dissection, or significant atherosclerotic disease of the thoracic aorta, abdominal aorta, or iliac arteries. The visualized pulmonary, mesenteric, and solid organ vascular structures are also within normal limits. Partial demonstration of an aberrant right subclavian artery (normal variant). Lungs/Pleura: No consolidation, nodules, or edema. No effusions or pneumothorax. The lung apices are not fully included on this CT angiogram. Mediastinum: Normal. No cardiac enlargement or adenopathy. Visualized abdomen: Unremarkable. Bones: Unremarkable. IMPRESSION: 1. Aberrant right subclavian artery (normal variant). Otherwise, normal chest CT angiogram. No aneurysm or dissection. RADIA
[2018-01-31 13:44] LABS: BILIRUBIN,URINE NEGATIVE (NEGATIVE); GLUCOSE, URINE (UA) NEGATIVE (NEGATIVE); KETONES,URINE (UA) NEGATIVE (NEGATIVE); LEUKOCYTE ESTERASE, URINE NEGATIVE (NEGATIVE); NITRITE,URINE NEGATIVE (NEGATIVE); OCCULT BLOOD,URINE NEGATIVE (NEGATIVE); PH,URINE 7.5 PH (5.0-7.5); PROTEIN,URINE NEGATIVE (NEGATIVE); UROBILINOGEN,URINE 0.2 (NORMAL) E.U./dL (NORMAL)
[2018-01-31 13:48] LABS: CLARITY,URINE CLEAR (CLEAR)
[2018-01-31] MEDS ORDERED: HALOPERIDOL 5 MG/ML VIAL IVP ONE (14:30)
[2018-01-31 15:55] VITALS: BP 156/95
--- NOTE | 2018-01-31 17:34 | CONSULTATION NOTE ---
Referring Provider Name of Referring Provider:: Brice Mcbride MD Consult Date: 01/31/18 Chief Complaint - Chief Complaint Chief Complaint: epigastric pain w intractable N/V History of Present Illness - History Obtained From Records Reviewed: [facility] History obtained from: patient and Dr. Mcbride Exam Limitations: none - History of Present Illness HPI Comment/Other: Emergency room physician asked me to evaluate this patient to see if she needed to be admitted or not. 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 With her last visit to us in March 2017, she presented as a headache with nausea and vomiting. She has been throwing up due to the migraine headache. With that exam she had an atraumatic ear nose and throat exam, dilated pupils, dry mucous membranes, and in terrible pain. Blood pressure was 180/104. Because EKG had T wave inversions consistent with Wellens criteria and it was a change from prior EKG the patient was transferred to [facility] for possible STEMI. Aspirin heparin drip was started. She said she was transferred, and once at [facility] symptoms abated. She never ended up needing further workup. Her symptoms were felt to be attributed to her migraine headache. She then presented on January 27 with abrupt onset of the vomiting and chest pain. She had been preparing dinner, got a whiff of the chicken. She did not eat it just smelled it. The chicken smelled bad and she started having lower chest and upper abdominal pain that radiated around her flanks and pain seem to radiate straight through to her back as well. She was given Phenergan, Zofran, Toradol, GI cocktail, morphine. She will report improvement after each of those were given, but then it would come back. She stayed long enough after a long ED stay that she felt comfortable enough to go home. CT angiogram suggested possible gastritis peptic ulcers disease. That was because the distal stomach appeared mildly edematous. She was sent home and has done well over the next few days. She saw her primary care provider Keiko Sánchez. She has been referred for an urgent EGD. And then starting yesterday evening started developing the chest discomfort, and intense nausea again. The pain is in her lower chest, upper abdomen. It radiates straight through the back and is also associated with a wraparound pain around her lower thoracic spine. She was miserable overnight at home and came to the emergency room in the kiln hand hours.She is afebrile, mildly hypertensive at 156/95. Saturating well on room air. Once again she is received GI cocktail, Cardizem CD, famotidine, fentanyl, Haldol, Dilaudid, viscous lidocaine, Ativan, Compazine and IV fluids. She also received Carafate. General surgery was contacted. Asked if this patient should get an urgent now. General surgery feels that is not indicated at this time. CT angiogram was done to looking for pulmonary emboli as well as dissecting aneurysm and that is negative as well. She does have a partial demonstration of and aberrant right subclavian artery. The visualized abdomen is unremarkable.She has now been in the ER several hours. History - Past Medical History Cardiovascular: reports: Murmur, Arrhythmia Respiratory: reports: None Neuro: reports: Migraines Endocrine/Autoimmune: reports: None Musculoskeletal: reports: Chronic back pain, Other MRSA Hx?: No - Past Surgical History /SHADE BANDER: reports: section HEENT: reports: Tonsil/Adenoidectomy - Family & Social History Family History Comment/Other: Negative for significant cardiovascular disease, diabetes, stroke, cancer or endocrine disease Living arrangement: At home Living Situation: With spouse/s.o. Social History Notes: She lives in [place] with her and her daughter. Daughter is 11 years old. Patient has never smoked. She drinks very rarely. She has no history of recreational substance abuse. Specifically there is no doc history of cannabis use. - Substance History Use: Uses substance without health or social issues: NONE Abuse: Recurrent use of substance despite neg consequences: NONE Dependence: Experiences withdrawal or developed tolerances: NONE - POLST Patient has POLST: No POLST Status: Full Code Meds/Allgy - Home Medications Home Medications: Ambulatory Orders Medication Instructions Recorded Confirmed Aspirin/Acetaminophen/Caffeine 2 each PO DAILY PRN 09/27/14 04/05/17 [Excedrin Migraine Caplet] Ibuprofen 600 - 800 mg PO DAILY 09/27/14 12/21/14 Propranolol [Inderal] 10 mg PO TID PRN 09/27/14 04/05/17 Lidocaine HCl [Lidocaine HCl 15 ml PO TID PRN #100 ml 01/28/18 Viscous] Promethazine [Phenergan] 25 - 50 mg PO Q6H PRN #10 tab 01/28/18 oxyCODONE [Roxicodone] 5 - 10 mg PO Q6H PRN #14 tablet 01/28/18 Metoclopramide [Reglan] 10 mg PO Q6H PRN #30 tablet 01/31/18 Ondansetron HCl [Zofran] 4 mg PO Q8HR PRN #30 tablet 01/31/18 Pantoprazole [Protonix] 40 mg PO DAILY #30 tablet 01/31/18 Sucralfate [Carafate] 1 gm PO QID #120 tablet 01/31/18 - Allergies Allergies/Adverse Reactions: Allergies Allergy/AdvReac Type Severity Reaction Status Date / Time zolpidem [From Ambien] Allergy Unknown Verified 01/31/18 06:47 Sulfa (Sulfonamide AdvReac Intermediate Hives Verified 01/31/18 06:47 Antibiotics) Exam - Vital Signs Reviewed Vital Signs: Yes Vital Signs: Vital Signs x48h Pulse Resp BP Pulse Ox 01/31/18 15:54 108 H 18 156/95 H 99 01/31/18 14:40 118 H 19 141/93 H 100 01/31/18 13:55 111 H 18 138/101 H 99 01/31/18 12:40 117 H 19 133/93 H 99 01/31/18 12:35 110 H 18 128/92 H 99 01/31/18 11:42 125 H 20 132/81 H 100 01/31/18 11:28 101 H 20 151/93 H 97 01/31/18 10:37 108 H 14 140/95 H 100 - Physical Exam General Appearance: positive: No acute distress, Other (I was in the emergency room discussing of the patient's with the emergency room physicians. Standing outside the patient's room, patient has been comfortable and asleep for 30 minut es. When I walk in the room she is easily awakened by my voice. She is sleepy, tired, but currently pain-free at this very moment in time. She does state that sometimes the pain comes back after a while.) Eyes Bilateral: positive: PERRL ENT: positive: Pharynx nml Neck: positive: No JVD. negative: Stiff neck Respiratory: positive: Chest non-tender, No respiratory distress. negative: Wheezes, Rales, Rhonchi Cardiovascular: positive: Tachycardia. negative: Gallop/S4, Friction rub Peripheral Pulses: positive: 1+ Abdomen: positive: No organomegaly, Nml bowel sounds, Tenderness (Mild, minimal in epigastrium) Extremities: positive: Full ROM, No pedal edema Neurologic/Psychiatric: positive: Oriented x3, CN's nml (2-12), Motor nml Conclusion/Plan - Diagnosis Diagnosis: Epigastric abdominal pain. Associated with nausea and vomiting. This is her second episode this month. While she does have a headache, this is not her usual migraine headache. This is the first time that she has had such nausea and vomiting in association with epigastric pain. Differential diagnosis would be cholelithiasis, Pollard's esophagus, esophageal spasm, duodenitis or gastritis, common bile duct stone, pulmonary embolism, dissecting aneurysm, posterior [place]. There is been an excellent workup in the emergency room with the last visit and this visit. There seems to be a suggestion that this may be narrow down to a GI etiology. Would recommend that she follow-up with the outpatient EGD. Next step would be esophageal manometry. Maintain the patient on a proton pump inhibitor, Carafate, Zofran, Phenergan in the outpatient setting. Follow-up with her primary care provider. At this time I do not think an observation stay is warranted. - Lab Results Fish Bones: 01/31/18 06:55 01/31/18 08:49 - EKG Results EKG Interpreted Independently: No
== END 2018-01-31 17:15 | disposition home or self-care (01) ==
LOC: ED 06:35
DX: K29.00 Acute gastritis without bleeding (principal); R07.89 Other chest pain; R11.2 Nausea with vomiting, unspecified; R10.13 Epigastric pain
CPT/HCPCS: 36415; 71046; 71275; 80053; 81003; 83690; 84484; 84703; 85025; 85379; 93005; 96361; 96365; 96368; 96375; 99284; A9270; J1170; J2060; J7040; Q9967; 81001; 87086

== ENCOUNTER 2018-02-16 11:23 | Day surgery (SDC) | payer OTHER ==
[2018-02-16] MEDS ORDERED: LACTATED RINGERS 1,000 ML IV ONE ×2 (11:32→12:27)
[2018-02-16 11:46] LABS: HCG UR QUAL NEGATIVE
[2018-02-16] MEDS ORDERED: LIDO GARGLE 30 ML BOTTLE ONE (12:12)
[2018-02-16] MEDS ORDERED: MIDAZOLAM 2 MG/2 ML VIAL IVP ONE (12:26)
[2018-02-16] MEDS ORDERED: fentaNYL 100 MCG/2 ML VIAL IVP ONE (12:26)
[2018-02-16] MEDS ORDERED: LIDO GARGLE 30 ML BOTTLE PO ONE (12:36)
[2018-02-16 13:41] VITALS: BP 112/52
== END 2018-02-16 11:24 | disposition home or self-care (01) ==
LOC: SDS 11:23
PROVIDERS: ATTEND Surgery
PROC: 0DB68ZX Excision of Stomach, Via Natural or Artificial Opening Endoscopic, Diagnostic (ICD-10-PCS; principal; 2018-02-16 12:30)
DX: K29.70 Gastritis, unspecified, without bleeding (principal); R12 Heartburn; I10 Essential (primary) hypertension; G43.909 Migraine, unspecified, not intractable, without status migrainosus; I49.9 Cardiac arrhythmia, unspecified; Z79.1 Long term (current) use of non-steroidal anti-inflammatories (NSAID)
CPT/HCPCS: 43239; 81025; 87081; A9270; J7120

== ENCOUNTER 2018-02-25 12:51 | Outpatient (CLI) | payer OTHER | END 2018-02-25 12:52 | disposition critical access hospital (66) | LOC: EMS 12:51 | PROVIDERS: ATTEND Surgery | DX: R07.9 Chest pain, unspecified (principal); M54.9 Dorsalgia, unspecified; R11.2 Nausea with vomiting, unspecified | CPT/HCPCS: A0425; A0427 ==

== ENCOUNTER 2018-02-25 13:15 | Emergency (ER) | payer OTHER ==
--- NOTE | 2018-02-25 13:22 | ED Physician Documentation ---
PD HPI CHEST PAIN - Stated complaint Stated Complaint: CP - History obtained from History obtained from: Patient - History of Present Illness Timing - onset: Last night (had onset of nausea and vomiting, developed headache feeling similar to migraines, and then subsequently having anterior chest pain and upper abd pain. Continued with nausea and vomiting and abd/chest pain into today. Headache was improved today but still present.) Timing - onset during: Rest Timing - duration: Hours Timing - details: Abrupt onset, Still present Quality: Tightness, Aching Location: Substernal, Left chest Radiation: No: Neck, Back Improved by: Rest Worsened by: Eating. No: Exertion, Inspiration Associated symptoms: Nausea, Vomiting, General Weakness, Other (also having migraine/headache at the time and prior to it.). No: Shortness of air, Diaphoresis Similar symptoms before: No diagnosis Review of Systems Constitutional: denies: Fever, Chills Nose: denies: Rhinorrhea / runny nose, Congestion Throat: denies: Sore throat Cardiac: reports: Chest pain / pressure. denies: Palpitations, Pedal edema, Calf pain Respiratory: denies: Dyspnea, Cough, Wheezing GI: reports: Abdominal Pain, Nausea, Vomiting. denies: Diarrhea, Hematemesis, Bloody / black stool : denies: Dysuria, Frequency Musculoskeletal: denies: Neck pain, Back pain Neurologic: reports: Generalized weakness, Near syncope, Headache. 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 - Present Medications Home Medications: Ambulatory Orders Medication Instructions Recorded Confirmed Aspirin/Acetaminophen/Caffeine 2 each PO DAILY PRN 09/27/14 02/13/18 [Excedrin Migraine Caplet] Ibuprofen 600 - 800 mg PO DAILY 09/27/14 02/13/18 Lidocaine HCl [Lidocaine HCl 15 ml PO TID PRN #100 ml 01/28/18 02/13/18 Viscous] Promethazine [Phenergan] 25 - 50 mg PO Q6H PRN #10 tab 01/28/18 02/13/18 oxyCODONE [Roxicodone] 5 - 10 mg PO Q6H PRN #14 tablet 01/28/18 02/13/18 Metoclopramide [Reglan] 10 mg PO Q6H PRN #30 tablet 01/31/18 02/13/18 Ondansetron HCl [Zofran] 4 mg PO Q8HR PRN #30 tablet 01/31/18 02/13/18 Pantoprazole [Protonix] 40 mg PO DAILY #30 tablet 01/31/18 02/13/18 Sucralfate [Carafate] 1 gm PO QID #120 tablet 01/31/18 02/13/18 Metoprolol Succinate [Toprol Xl] 50 mg PO DAILY 02/13/18 02/13/18 Hydrocodone/Acetaminophen [[place] 1 each PO Q6H PRN #15 tablet 02/25/18 5-325 Tablet] Ondansetron Odt [Zofran] 4 mg TL Q6H PRN #10 tablet 02/25/18 Promethazine Supp [Phenergan Supp] 25 mg VA Q6H PRN #10 supp 02/25/18 - Allergies Allergies/Adverse Reactions: Allergies Allergy/AdvReac Type Severity Reaction Status Date / Time zolpidem [From Ambien] Allergy Unknown Verified 02/25/18 13:18 Sulfa (Sulfonamide AdvReac Intermediate Hives Verified 02/25/18 13:18 Antibiotics) - Living Situation Living Situation: reports: With family Living Arrangement: reports: At home - Social History Does the pt smoke?: No Smoking Status: Never smoker Does the pt drink ETOH?: No Does the pt have substance abuse?: No - Family History Family history: reports: Non contributory. denies: Aortic aneursym, Aortic dissection - Immunizations Immunizations are current?: Yes - POLST Patient has POLST: No POLST Status: Full Code PD ED PE NORMAL - Vitals Vital signs reviewed: Yes - General General: Alert and oriented X 3, Well developed/nourished, Other (appears in pain, grimacing, holding emesis bag with some bilious small amounts produced. ) - HEENT HEENT: Pharynx benign - Neck Neck: Supple, no meningeal sign, No adenopathy - Cardiac Cardiac: RRR, No murmur - Respiratory Respiratory: Clear bilaterally - Abdomen Abdomen: Normal bowel sounds, Non distended, No organomegaly, Other (tender upper abd without percussion nor rebound. Does have some guarding. ) - Derm Derm: Normal color, Warm and dry - Extremities Extremities: No deformity, No tenderness to palpate, Normal ROM s pain - Neuro Neuro: Alert and oriented X 3, No motor deficit, Normal speech Results - Vitals Vitals: Oxygen O2 Source Room air - Labs Labs: Laboratory Tests 02/25/18 02/25/18 02/25/18 13:48 13:48 13:48 WBC 12.1 H RBC 4.15 L Hgb 12.6 Hct 36.9 L MCV 89.0 MCH 30.4 MCHC 34.1 RDW 14.2 Plt Count 247 MPV 8.6 Neut # (Auto) 10.8 H Lymph # (Auto) 0.8 L [place] # (Auto) 0.4 Eos # (Auto) 0.0 Baso # (Auto) 0.0 Absolute Nucleated RBC 0.00 Nucleated RBC % 0.0 Sodium 141 Potassium 3.6 Chloride 107 Carbon Dioxide 23 Anion Gap 11.0 BUN 16 Creatinine 1.0 Estimated GFR (MDRD) 60 L Glucose 117 H Calcium 9.2 Magnesium 1.8 Total Bilirubin 0.5 AST 17 ALT 12 Alkaline Phosphatase 46 Troponin I < 0.04 Total Protein 7.7 Albumin 4.9 Globulin 2.8 Albumin/Globulin Ratio 1.8 Lipase 57 H - Rads (name of study) abd RUQ U/S Radiology: Prelim report reviewed (normal gallbladder and CBD. ), EMP read contemporaneously PD MEDICAL DECISION MAKING - ED course Complexity details: re-evaluated patient (feeling better after several doses of meds for migraine initially, then nausea and epigastric pain as well. Seems possibly migraine with vomiting and subsequent gastritis exac. Could have some element of intestinal migraine. Has worsening with GI cocktail, so does localize it some to gastritis/duodenal area. ), considered differential, d/w patient Departure - Departure Disposition: 01 Home, Self Care Clinical Impression: Nausea and vomiting Qualifiers: Vomiting type: unspecified Vomiting Intractability: intractable Qualified Code(s): R11.2 - Nausea with vomiting, unspecified Gastritis Qualifiers: Gastritis type: unspecified gastritis Chronicity: acute Gastritis bleeding: without bleeding Qualified Code(s): K29.00 - Acute gastritis without bleeding Back pain Qualifiers: Back pain location: thoracic back pain Chronicity: acute Back pain laterality: midline Qualified Code(s): M54.6 - Pain in thoracic spine Migraine Qualifiers: Migraine type: without aura Status migrainosus presence: without status migrainosus Intractability: not intractable Qualified Code(s): G43.009 - Migraine without aura, not intractable, without status migrainosus Condition: Stable Record reviewed to determine appropriate education?: Yes Instructions: ED Nausea Vomiting Follow-Up: Keiko Sánchez PA-C [Primary Care Provider] - Chadwick Yoo MD [Provider Admit Priv/Credential] - Amy Vega MD [Provider Admit Priv/Credential] - Prescriptions: Hydrocodone/Acetaminophen [[place] 5-325 Tablet] 1 each PO Q6H PRN #15 tablet PRN Reason: Pain Ondansetron Odt [Zofran] 4 mg TL Q6H PRN #10 tablet PRN Reason: Nausea / Vomiting Promethazine Supp [Phenergan Supp] 25 mg VA Q6H PRN #10 supp PRN Reason: Nausea / Vomiting Comments: It sounds like he may have had a migraine headache and there may be an intestinal component to the migraine as well. Otherwise just the vomiting from the migraine negative instigated gastritis and therefore the worst belly pain. I am glad you are headache and nausea are doing better. Some of the stomach pain got better with the Mylanta and lidocaine so that probably was the gastritis component. The back pain that you have may be muscular from the vomiting. Your labs and upper abdomen ultrasound and chest x-ray are normal so I do not see a more significant process at this time. He is Tylenol or hydrocodone if needed for pain. Continue your nausea medicines could use the dissolving Zofran or Phenergan suppository if needed as well. Resume your Carafate at home 3-4 times a day for the next for 5 days anyway. Follow-up with your neurologist Friday as planned. I also put phone numbers for cardiology and gastroenterology in [place]. It can be anyone from those groups that you had seen Dr. Yoo before. Discharge Date/Time: 02/25/18 18:05
[2018-02-25] MEDS ORDERED: SODIUM CHLORIDE 0.9% 1,000 ML IV ONE (13:34)
[2018-02-25] MEDS ORDERED: diphenhydrAMINE INJ 50 MG/ML VIAL IVP STA (13:35)
[2018-02-25] MEDS ORDERED: ACETAMINOPHEN 1,000 MG/100 ML 100 ML IV STA (13:35)
[2018-02-25] MEDS ORDERED: METOCLOPRAMIDE 10 MG/2 ML VIAL IVP STA (13:35)
[2018-02-25] MEDS ORDERED: FAMOTIDINE 20 MG/2 ML VIAL IVP STA (13:35)
[2018-02-25 13:56] LABS: BASOPHILS % (AUTO) 0.4 %; EOSINOPHILS % (AUTO) 0.1 %; HGB - HEMOGLOBIN 12.6 g/dL (12.0-16.0); LYMPHOCYTES # (AUTO) 0.8 10^3/uL (1.5-3.5); LYMPHOCYTES % (AUTO) 6.8 %; MEAN CORPUSCULAR HEMOGLOBIN 30.4 pg (27.0-31.0); MEAN CORPUSCULAR HGB CONC 34.1 g/dL (32.0-36.0); MEAN PLATELET VOLUME 8.6 fL (7.9-10.8); MONOCYTES # (AUTO) 0.4 10^3/uL (0.0-1.0); MONOCYTES % (AUTO) 3.4 %; NEUTROPHILS # (AUTO) 10.8 10^3/uL (1.5-6.6); NEUTROPHILS % (AUTO) 89.3 %; PLT - PLATELET COUNT 247 10^3/uL (130-450); RED BLOOD COUNT 4.15 10^6/uL (4.20-5.40); RED CELL DISTRIBUTION WIDTH 14.2 % (12.0-15.0); WHITE BLOOD COUNT 12.1 x10^3/uL (4.8-10.8)
[2018-02-25] MEDS ORDERED: MORPHINE 10 MG/ML VIAL IVP STA ×2 (14:07→15:21)
[2018-02-25] MEDS ORDERED: PROMETHAZINE INJ 12.5 MG in SODIUM CHLORIDE 0.9% 50 ML IV STA (14:07)
[2018-02-25 14:08] LABS: ALBUMIN 4.9 g/dL (3.2-5.5); ALBUMIN/GLOBULIN RATIO 1.8 (1.0-2.2); BILIRUBIN,TOTAL 0.5 mg/dL (0.2-1.0); CALCIUM 9.2 mg/dL (8.5-10.3); MAGNESIUM 1.8 mg/dL (1.7-2.8); TOTAL PROTEIN 7.7 g/dL (6.7-8.2)
--- NOTE | 2018-02-25 14:27 | XRAY Report ---
Reason: chest pain Procedure Date: 02/25/2018 Accession Number: [id number] / [id number] Procedure: XR - Chest 1 View X-Ray CPT Code: 25556 FULL RESULT: EXAM: CHEST RADIOGRAPHY EXAM DATE: 02/25/2018 01:57 PM. CLINICAL HISTORY: Chest pain. COMPARISON: Chest 2 views 01/31/2018 7:06 AM. TECHNIQUE: 1 view. FINDINGS: Lungs/Pleura: No focal opacities evident. No pleural effusion. No pneumothorax. Overexpanded, emphysematous changes. Mediastinum: Within exam limitations, the cardiomediastinal contour is normal. Other: None. IMPRESSION: Chronic lung disease. RADIA
[2018-02-25] MEDS ORDERED: LIDOCAINE VISCOUS 2% 15 ML UDC MM STA (15:08)
[2018-02-25] MEDS ORDERED: MAG HYDROX/AL HYDROX/SIMETH 30 ML UDC PO STA (15:08)
--- NOTE | 2018-02-25 17:02 | Ultrasound Report ---
Reason: upper abd pain and vomiting Procedure Date: 02/25/2018 Accession Number: [id number] / [id number] Procedure: US - Abdomen Limited CPT Code: FULL RESULT: EXAM: ABDOMEN ULTRASOUND LIMITED, RUQ EXAM DATE: 02/25/2018 04:06 PM. CLINICAL HISTORY: Upper abdomen pain and vomiting. COMPARISON: None. TECHNIQUE: Real-time scanning was performed with static images obtained. FINDINGS: Liver: Normal in size and echotexture. 13.8 cm. Main portal vein flow: Hepatopetal. Gallbladder: Normal. No stones, wall thickening, or sonographic Roldan's sign. Biliary System: CBD measures 2.3 mm. No intrahepatic or extrahepatic ductal dilatation. Other: The visualized pancreas and right kidney are unremarkable. No free fluid. IMPRESSION: Normal. No cholelithiasis or cholecystitis. RADIA
[2018-02-25] MEDS ORDERED: HYDROmorphone 1 MG/ML CARPUJECT IVP STA (17:29)
[2018-02-25 18:06] VITALS: BP 140/93
== END 2018-02-25 18:05 | disposition home or self-care (01) ==
LOC: EDUNIT# → ED 13:15
DX: R11.2 Nausea with vomiting, unspecified (principal); K29.00 Acute gastritis without bleeding; M54.6 Pain in thoracic spine; G43.009 Migraine without aura, not intractable, without status migrainosus; I10 Essential (primary) hypertension
CPT/HCPCS: 36415; 71045; 76705; 80053; 83690; 83735; 84484; 85025; 93005; 96365; 96367; 96375; 96376; 99283; A9270; J0131; J1170; J1200; J2765; J7040

== ENCOUNTER 2018-03-22 16:39 | Emergency (ER) | payer OTHER ==
[2018-03-22 16:58] LABS: BILIRUBIN,URINE NEGATIVE (NEGATIVE); GLUCOSE, URINE (UA) NEGATIVE (NEGATIVE); KETONES,URINE (UA) NEGATIVE (NEGATIVE); LEUKOCYTE ESTERASE, URINE NEGATIVE (NEGATIVE); NITRITE,URINE NEGATIVE (NEGATIVE); OCCULT BLOOD,URINE TRACE-INTA (NEGATIVE); PH,URINE 5.5 PH (5.0-7.5); PROTEIN,URINE NEGATIVE (NEGATIVE); UROBILINOGEN,URINE 0.2 (NORMAL) E.U./dL (NORMAL)
[2018-03-22 17:00] LABS: CLARITY,URINE CLEAR (CLEAR)
[2018-03-22 17:01] LABS: HCG UR QUAL NEGATIVE
[2018-03-22 17:04] LABS: BASOPHILS # (AUTO) 0.1 10^3/uL (0.0-0.1); BASOPHILS % (AUTO) 1.4 %; EOSINOPHILS % (AUTO) 0.1 %; LYMPHOCYTES # (AUTO) 1.1 10^3/uL (1.5-3.5); LYMPHOCYTES % (AUTO) 15.2 %; MEAN CORPUSCULAR HEMOGLOBIN 29.8 pg (27.0-31.0); MEAN CORPUSCULAR HGB CONC 33.1 g/dL (32.0-36.0); MEAN PLATELET VOLUME 8.3 fL (7.9-10.8); MONOCYTES # (AUTO) 0.3 10^3/uL (0.0-1.0); MONOCYTES % (AUTO) 3.5 %; NEUTROPHILS # (AUTO) 5.7 10^3/uL (1.5-6.6); NEUTROPHILS % (AUTO) 79.8 %; PLT - PLATELET COUNT 266 10^3/uL (130-450); RED BLOOD COUNT 4.35 10^6/uL (4.20-5.40); RED CELL DISTRIBUTION WIDTH 14.4 % (12.0-15.0); WHITE BLOOD COUNT 7.1 x10^3/uL (4.8-10.8)
[2018-03-22 17:17] LABS: ALBUMIN 4.7 g/dL (3.2-5.5); ALBUMIN/GLOBULIN RATIO 1.6 (1.0-2.2); BILIRUBIN,TOTAL 0.9 mg/dL (0.2-1.0); CALCIUM 9.8 mg/dL (8.5-10.3); CREATININE 0.9 mg/dL (0.4-1.0); TOTAL PROTEIN 7.6 g/dL (6.7-8.2)
--- NOTE | 2018-03-22 17:19 | ED Physician Documentation ---
PD HPI ABD PAIN - Stated complaint Stated Complaint: ABDOMAL PAIN, BACK PAIN, VOMITING - Chief complaint Chief Complaint: Abd Pain - History obtained from History obtained from: Patient - History of Present Illness Timing - onset: Last night (This is a 42-year-old woman with recurrent upper abdominal pain radiating the back associated with vomiting. She has had 5 episodes of this. The first 1 was in March, she actually had an abnormal EKG at the time and was sent to [facility] but got better. Now in the last 2 months she has had 3 more episodes. She had an upper endoscopy that was basically normal, the procedure note said she had "very very mild gastritis, "" the pathology was without gastritis. She has had a couple of CTs, one regular and one angiogram which are mobile. The pain recurred last night, started with a migraine and then radiating through to the back with vomiting. 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/Adenoidectomy - Present Medications Home Medications: Ambulatory Orders Medication Instructions Recorded Confirmed Aspirin/Acetaminophen/Caffeine 2 each PO DAILY PRN 09/27/14 02/13/18 [Excedrin Migraine Caplet] Ibuprofen 600 - 800 mg PO DAILY 09/27/14 02/13/18 Lidocaine HCl [Lidocaine HCl 15 ml PO TID PRN #100 ml 01/28/18 02/13/18 Viscous] Promethazine [Phenergan] 25 - 50 mg PO Q6H PRN #10 tab 01/28/18 02/13/18 oxyCODONE [Roxicodone] 5 - 10 mg PO Q6H PRN #14 tablet 01/28/18 02/13/18 Metoclopramide [Reglan] 10 mg PO Q6H PRN #30 tablet 01/31/18 02/13/18 Ondansetron HCl [Zofran] 4 mg PO Q8HR PRN #30 tablet 01/31/18 02/13/18 Pantoprazole [Protonix] 40 mg PO DAILY #30 tablet 01/31/18 02/13/18 Sucralfate [Carafate] 1 gm PO QID #120 tablet 01/31/18 02/13/18 Metoprolol Succinate [Toprol Xl] 50 mg PO DAILY 02/13/18 02/13/18 Hydrocodone/Acetaminophen [[place] 1 each PO Q6H PRN #15 tablet 02/25/18 5-325 Tablet] Ondansetron Odt [Zofran] 4 mg TL Q6H PRN #10 tablet 02/25/18 Promethazine Supp [Phenergan Supp] 25 mg VA Q6H PRN #10 supp 02/25/18 Oxycodone HCl/Acetaminophen 1 - 2 each PO Q6H PRN #14 tablet 03/22/18 [Percocet 5-325 mg Tablet] - Allergies Allergies/Adverse Reactions: Allergies Allergy/AdvReac Type Severity Reaction Status Date / Time zolpidem [From Ambien] Allergy Unknown Verified 03/22/18 16:47 Sulfa (Sulfonamide AdvReac Intermediate Hives Verified 03/22/18 16:47 Antibiotics) - Social History Does the pt smoke?: No Smoking Status: Never smoker Does the pt drink ETOH?: No Does the pt have substance abuse?: No - Immunizations Immunizations are current?: Yes - POLST Patient has POLST: No POLST Status: Full Code PD ED PE NORMAL - Vitals Vital signs reviewed: Yes - General General: Alert and oriented X 3, No acute distress - Cardiac Cardiac: RRR, No murmur - Respiratory Respiratory: No respiratory distress, Clear bilaterally - Abdomen Abdomen: Normal bowel sounds, Soft, Non tender - Derm Derm: Normal color, Warm and dry - Neuro Neuro: Alert and oriented X 3, Normal speech Results - Vitals Vitals: Vital Signs - 24 hr 03/22/18 03/22/18 03/22/18 16:43 17:36 18:18 Temperature 36.8 C Heart Rate 90 79 81 Respiratory 20 20 22 Rate Blood Pressure 132/85 H 127/73 133/90 H O2 Saturation 99 99 100 Oxygen O2 Source Room air - Labs Labs: Laboratory Tests 03/22/18 03/22/18 03/22/18 16:50 16:50 17:00 WBC 7.1 RBC 4.35 Hgb 13.0 Hct 39.1 MCV 90.0 MCH 29.8 MCHC 33.1 RDW 14.4 Plt Count 266 MPV 8.3 Neut # (Auto) 5.7 Lymph # (Auto) 1.1 L [place] # (Auto) 0.3 Eos # (Auto) 0.0 Baso # (Auto) 0.1 Absolute Nucleated RBC 0.01 Nucleated RBC % 0.1 Sodium Potassium Chloride Carbon Dioxide Anion Gap BUN Creatinine Estimated GFR (MDRD) Glucose Calcium Total Bilirubin AST ALT Alkaline Phosphatase Total Protein Albumin Globulin Albumin/Globulin Ratio Lipase Urine Color YELLOW Urine Clarity CLEAR Urine pH 5.5 Ur Specific [place] 1.010 Urine Protein NEGATIVE Urine Glucose (UA) NEGATIVE Urine Ketones NEGATIVE Urine Occult Blood TRACE-INTA Urine Nitrite NEGATIVE Urine Bilirubin NEGATIVE Urine Urobilinogen 0.2 (NORMAL) Ur Leukocyte Esterase NEGATIVE Ur Microscopic Review NOT INDICATED Urine Culture Comments NOT INDICATED Urine HCG, Qual NEGATIVE Urine Opiates Screen NEGATIVE Ur Oxycodone Screen POSITIVE H Urine Methadone Screen NEGATIVE Ur Propoxyphene Screen NEGATIVE Ur Barbiturates Screen NEGATIVE Ur Tricyclics Screen NEGATIVE Ur Phencyclidine Scrn NEGATIVE Ur Amphetamine Screen NEGATIVE U Methamphetamines Scrn NEGATIVE U Benzodiazepines Scrn NEGATIVE Urine Cocaine Screen NEGATIVE U Cannabinoids Screen NEGATIVE 03/22/18 17:00 WBC RBC Hgb Hct MCV MCH MCHC RDW Plt Count MPV Neut # (Auto) Lymph # (Auto) [place] # (Auto) Eos # (Auto) Baso # (Auto) Absolute Nucleated RBC Nucleated RBC % Sodium 140 Potassium 3.5 Chloride 108 Carbon Dioxide 23 Anion Gap 9.0 BUN 12 Creatinine 0.9 Estimated GFR (MDRD) 68 L Glucose 102 H Calcium 9.8 Total Bilirubin 0.9 AST 17 ALT 13 Alkaline Phosphatase 47 Total Protein 7.6 Albumin 4.7 Globulin 2.9 Albumin/Globulin Ratio 1.6 Lipase 63 H Urine Color Urine Clarity Urine pH Ur Specific [place] Urine Protein Urine Glucose (UA) Urine Ketones Urine Occult Blood Urine Nitrite Urine Bilirubin Urine Urobilinogen Ur Leukocyte Esterase Ur Microscopic Review Urine Culture Comments Urine HCG, Qual Urine Opiates Screen Ur Oxycodone Screen Urine Methadone Screen Ur Propoxyphene Screen Ur Barbiturates Screen Ur Tricyclics Screen Ur Phencyclidine Scrn Ur Amphetamine Screen U Methamphetamines Scrn U Benzodiazepines Scrn Urine Cocaine Screen U Cannabinoids Screen PD MEDICAL DECISION MAKING - ED course ED course: 42-year-old woman with upper episodic upper abdominal pain radiating to the back with vomiting. She has had a pretty complete workup so far with angiography CT, regular CT, and upper endoscopy without relevant findings except for "very very mild gastritis" with negative pathology. She is noted to have mildly elevated lipase tonight and on another visit so sphincter of Oddi spasm or pancreas divisum is on the differential. She has not yet had an MRCP. Every other emergent diagnosis I think has been ruled out by prior imaging. She improved with stepwise medications here and request discharge. Departure - Departure Disposition: 01 Home, Self Care Clinical Impression: Vomiting Qualifiers: Vomiting type: unspecified Vomiting Intractability: intractable Nausea presence: with nausea Qualified Code(s): R11.2 - Nausea with vomiting, unspecified Abdominal pain Qualifiers: Abdominal location: upper abdomen, unspecified Qualified Code(s): R10.10 - Upper abdominal pain, unspecified Condition: Good Record reviewed to determine appropriate education?: Yes Instructions: ED Abdominal Pain Unkn Cause Prescriptions: Oxycodone HCl/Acetaminophen [Percocet 5-325 mg Tablet] 1 - 2 each PO Q6H PRN #14 tablet PRN Reason: pain Comments: Continue current medications. Return anytime if worse or if pain is unbearable. Follow-up with your doctor and discuss MRCP and follow-up given the mildly elevated lipase is we have seen in a couple of visits as you may have something like pancreas divisum or sphincter of Oddi spasm.
[2018-03-22] MEDS ORDERED: SODIUM CHLORIDE 0.9% 1,000 ML IV ONE (17:22)
[2018-03-22] MEDS ORDERED: MAG HYDROX/AL HYDROX/SIMETH 30 ML UDC PO STA (17:22)
[2018-03-22] MEDS ORDERED: METOCLOPRAMIDE 10 MG/2 ML VIAL IVP STA (17:22)
[2018-03-22] MEDS ORDERED: HYDROmorphone 1 MG/ML CARPUJECT IVP STA ×2 (17:22→18:18)
[2018-03-22] MEDS ORDERED: LIDOCAINE VISCOUS 2% 15 ML UDC MM STA (17:22)
[2018-03-22 17:32] LABS: MUDS CUTOFF CONCENTRATIONS CUTOFF CONC BELOW:
[2018-03-22 17:45] LABS: AMPHETAMINE SCREEN,URINE NEGATIVE (NEGATIVE); BENZODIAZEPINES SCREEN, URINE NEGATIVE (NEGATIVE); COCAINE SCREEN URINE NEGATIVE (NEGATIVE); METHADONE SCREEN, URINE NEGATIVE (NEGATIVE); METHAMPHETAMINES SCREEN, URINE NEGATIVE (NEGATIVE); OPIATE SCREEN, URINE NEGATIVE (NEGATIVE); OXYCODONE SCREEN, URINE POSITIVE (NEGATIVE); PROPOXYPHENE SCREEN, URINE NEGATIVE (NEGATIVE); TRICYCLIC ANTIDEPRESSANT,URINE NEGATIVE (NEGATIVE)
[2018-03-22] MEDS ORDERED: KETOROLAC 30 MG/ML VIAL IVP STA (18:18)
[2018-03-22] MEDS ORDERED: oxyCODONE/ACET 5/325 Prepack 4 PO STA (18:51)
[2018-03-22 19:05] VITALS: BP 132/92
== END 2018-03-22 19:16 | disposition home or self-care (01) ==
LOC: ED 16:39
DX: R11.2 Nausea with vomiting, unspecified (principal); R10.10 Upper abdominal pain, unspecified; I10 Essential (primary) hypertension
CPT/HCPCS: 36415; 80053; 80306; 81003; 81025; 83690; 85025; 96361; 96374; 96375; 96376; 99283; A9270; J1170; J2765; 81001; 87086

== ENCOUNTER 2018-06-09 17:16 | Emergency (ER) | payer OTHER ==
[2018-06-09] MEDS ORDERED: LACTATED RINGERS 1,000 ML IV STA (17:35)
[2018-06-09] MEDS ORDERED: SODIUM CHLORIDE 0.9% 1,000 ML IV ONE (17:35)
--- NOTE | 2018-06-09 17:37 | ED Physician Documentation ---
History of Present Illness - Stated complaint Stated Complaint: LBP/CP/DIZZY/HEADACHE - Chief complaint Chief Complaint: Cardiac - History obtained from History obtained from: Patient, Family - History of Present Illness Timing: Other (42-year-old woman with history of migraines causing syncope. 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 She says in the past she has been bradycardic with these episodes down to 20 has had a cardiac workup without relevant positive findings.) Review of Systems Constitutional: reports: Myalgias. 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 - Present Medications Home Medications: Ambulatory Orders Medication Instructions Recorded Confirmed Aspirin/Acetaminophen/Caffeine 2 each PO DAILY PRN 09/27/14 02/13/18 [Excedrin Migraine Caplet] RX: Ibuprofen 600 - 800 mg PO DAILY 09/27/14 02/13/18 Lidocaine HCl [Lidocaine HCl 15 ml PO TID PRN #100 ml 01/28/18 02/13/18 Viscous] Promethazine [Phenergan] 25 - 50 mg PO Q6H PRN #10 tab 01/28/18 02/13/18 RX: oxyCODONE [Roxicodone] 5 - 10 mg PO Q6H PRN #14 tablet 01/28/18 02/13/18 Metoclopramide [Reglan] 10 mg PO Q6H PRN #30 tablet 01/31/18 02/13/18 Ondansetron HCl [Zofran] 4 mg PO Q8HR PRN #30 tablet 01/31/18 02/13/18 Pantoprazole [Protonix] 40 mg PO DAILY #30 tablet 01/31/18 02/13/18 Sucralfate [Carafate] 1 gm PO QID #120 tablet 01/31/18 02/13/18 Metoprolol Succinate [Toprol Xl] 50 mg PO DAILY 02/13/18 02/13/18 Hydrocodone/Acetaminophen [[place] 1 each PO Q6H PRN #15 tablet 02/25/18 5-325 Tablet] Ondansetron Odt [Zofran] 4 mg TL Q6H PRN #10 tablet 02/25/18 RX: Promethazine Supp [Phenergan 25 mg MS Q6H PRN #10 supp 02/25/18 Supp] Oxycodone HCl/Acetaminophen 1 - 2 each PO Q6H PRN #14 tablet 03/22/18 [Percocet 5-325 mg Tablet] Metoclopramide [Reglan] 10 mg PO Q6H PRN #20 tablet 06/09/18 - Allergies Allergies/Adverse Reactions: Allergies Allergy/AdvReac Type Severity Reaction Status Date / Time zolpidem [From Ambien] Allergy Unknown Verified 06/09/18 17:29 Sulfa (Sulfonamide AdvReac Intermediate Hives Verified 06/09/18 17:29 Antibiotics) - Social History Does the pt smoke?: No Smoking Status: Never smoker Does the pt drink ETOH?: No Does the pt have substance abuse?: No - Immunizations Immunizations are current?: Yes - POLST Patient has POLST: No POLST Status: Full Code PD ED PE NORMAL - Vitals Vital signs reviewed: Yes - General General: Alert and oriented X 3, No acute distress - HEENT HEENT: PERRL, EOMI - Neck Neck: Supple, no meningeal sign, No bony TTP - Cardiac Cardiac: RRR, No murmur - Respiratory Respiratory: No respiratory distress, Clear bilaterally - Abdomen Abdomen: Non tender - Derm Derm: Normal color, Warm and dry - Extremities Extremities: No edema, No calf tenderness / cord - Neuro Neuro: Alert and oriented X 3, 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, Normal speech Eye Opening: Spontaneous Motor: Obeys Commands Verbal: Oriented GCS Score: 15 - Psych Psych: Normal mood, Normal affect Results - Vitals Vitals: Vital Signs - 24 hr 06/09/18 06/09/18 06/09/18 17:24 17:56 19:25 Temperature 37.0 C Heart Rate 52 L 48 L 49 L Respiratory 16 20 18 Rate Blood Pressure 138/90 H 138/90 H 130/95 H O2 Saturation 100 99 100 06/09/18 06/09/18 06/09/18 19:57 20:39 21:37 Temperature Heart Rate 39 L 55 L 42 L Respiratory 14 18 18 Rate Blood Pressure 175/95 H 171/91 H 172/92 H O2 Saturation 100 100 100 Oxygen O2 Source Room air - EKG (time done) 1725 Rate: Rate (enter#) (47) Rhythm: Sinus bradycardia [place]: Normal Intervals: Normal MS QRS: Normal Ischemia: Q waves (V1-V3) Computer interpretation: Agree with computer 2010 Rate: Rate (enter#) (44) Rhythm: NSR [place]: Normal Intervals: Normal MS QRS: Normal Ischemia: Q waves (old anterior) Computer interpretation: Agree with computer - Labs Labs: Laboratory Tests 06/09/18 06/09/18 06/09/18 18:35 18:35 19:48 WBC 7.4 RBC 4.12 L Hgb 12.3 Hct 36.0 L MCV 87.3 MCH 29.8 MCHC 34.1 RDW 13.7 Plt Count 209 MPV 9.2 Neut # (Auto) 5.3 Lymph # (Auto) 1.5 [place] # (Auto) 0.5 Eos # (Auto) 0.0 Baso # (Auto) 0.1 Absolute Nucleated RBC 0.00 Nucleated RBC % 0.0 Sodium 136 Potassium 3.4 L Chloride 104 Carbon Dioxide 23 Anion Gap 9.0 BUN 12 Creatinine 0.9 Estimated GFR (MDRD) 68 L Glucose 101 H Calcium 9.4 Total Bilirubin 0.9 AST 16 ALT 10 Alkaline Phosphatase 37 L Total Protein 6.8 Albumin 4.1 Globulin 2.7 Albumin/Globulin Ratio 1.5 Lipase 62 H Urine Color YELLOW Urine Clarity CLEAR Urine pH 5.5 Ur Specific [place] 1.015 Urine Protein NEGATIVE Urine Glucose (UA) NEGATIVE Urine Ketones NEGATIVE Urine Occult Blood SMALL H Urine Nitrite NEGATIVE Urine Bilirubin NEGATIVE Urine Urobilinogen 0.2 (NORMAL) Ur Leukocyte Esterase NEGATIVE Urine RBC 0-5 Urine WBC 0-3 Ur Squamous Epith Cells MOD Squamous H Urine Bacteria Rare Ur Microscopic Review INDICATED Urine Culture Comments NOT INDICATED Urine HCG, Qual NEGATIVE PD MEDICAL DECISION MAKING - ED course ED course: This is a 42-year-old woman who presents with a history of migraines that cause syncope. She is modestly bradycardic with this which actually resolved after the administration of Reglan here eventually. Her headache was better and she felt better. Review of the chart shows that a couple of years ago she was transferred for similar symptoms although she was more bradycardic at the time. She says that she had a full cardiology evaluation and they felt it was noncardiac in origin. I discussed with her that metoprolol may not be the best choice for her blood pressure medicine. She actually has not taken it about 3-4 days, she says that it was chosen for potential migraine prophylaxis in addition to her blood pressure treatment, but she says it really did not help with migraine prophylaxis so I encouraged her to find an alternative with her doctor. Departure - Departure Disposition: Home, Self Care Clinical Impression: Bradycardia, Near syncope, Migraine Condition: Good Record reviewed to determine appropriate education?: Yes Instructions: ED Near Syncope Unkn Prescriptions: Metoclopramide [Reglan] 10 mg PO Q6H PRN #20 tablet PRN Reason: nausea or headache Comments: Call your doctor to arrange a follow-up appointment, make the next available appointment. In the interim, return anytime if worse or if new symptoms devel op. Discharge Date/Time: 06/09/18 22:00
[2018-06-09] MEDS ORDERED: KETOROLAC 30 MG/ML VIAL IVP STA (18:01)
[2018-06-09] MEDS ORDERED: ONDANSETRON 4 MG/2 ML VIAL IVP STA (18:01)
[2018-06-09] MEDS ORDERED: diphenhydrAMINE INJ 50 MG/ML VIAL IVP STA (18:01)
[2018-06-09 18:44] LABS: BASOPHILS # (AUTO) 0.1 10^3/uL (0.0-0.1); BASOPHILS % (AUTO) 0.8 %; EOSINOPHILS % (AUTO) 0.3 %; HGB - HEMOGLOBIN 12.3 g/dL (12.0-16.0); LYMPHOCYTES # (AUTO) 1.5 10^3/uL (1.5-3.5); LYMPHOCYTES % (AUTO) 20.4 %; MEAN CORPUSCULAR HEMOGLOBIN 29.8 pg (27.0-31.0); MEAN CORPUSCULAR HGB CONC 34.1 g/dL (32.0-36.0); MEAN CORPUSCULAR VOLUME 87.3 fL (81.0-99.0); MEAN PLATELET VOLUME 9.2 fL (7.9-10.8); MONOCYTES # (AUTO) 0.5 10^3/uL (0.0-1.0); MONOCYTES % (AUTO) 6.8 %; NEUTROPHILS # (AUTO) 5.3 10^3/uL (1.5-6.6); NEUTROPHILS % (AUTO) 71.7 %; PLT - PLATELET COUNT 209 10^3/uL (130-450); RED BLOOD COUNT 4.12 10^6/uL (4.20-5.40); RED CELL DISTRIBUTION WIDTH 13.7 % (12.0-15.0); WHITE BLOOD COUNT 7.4 x10^3/uL (4.8-10.8)
[2018-06-09 19:01] LABS: ALBUMIN 4.1 g/dL (3.2-5.5); ALBUMIN/GLOBULIN RATIO 1.5 (1.0-2.2); BILIRUBIN,TOTAL 0.9 mg/dL (0.2-1.0); CALCIUM 9.4 mg/dL (8.5-10.3); CREATININE 0.9 mg/dL (0.4-1.0); TOTAL PROTEIN 6.8 g/dL (6.7-8.2)
[2018-06-09 20:06] LABS: BILIRUBIN,URINE NEGATIVE (NEGATIVE); GLUCOSE, URINE (UA) NEGATIVE (NEGATIVE); KETONES,URINE (UA) NEGATIVE (NEGATIVE); LEUKOCYTE ESTERASE, URINE NEGATIVE (NEGATIVE); NITRITE,URINE NEGATIVE (NEGATIVE); OCCULT BLOOD,URINE SMALL (NEGATIVE); PH,URINE 5.5 PH (5.0-7.5); PROTEIN,URINE NEGATIVE (NEGATIVE); UROBILINOGEN,URINE 0.2 (NORMAL) E.U./dL (NORMAL)
[2018-06-09] MEDS ORDERED: CAFFEINE/SODIUM BENZOATE 500 MG in SODIUM CHLORIDE 0.9% 1,000 ML IV STA (20:22)
[2018-06-09 20:25] LABS: BACTERIA,URINE Rare /HPF (None Seen); CLARITY,URINE CLEAR (CLEAR); HCG UR QUAL NEGATIVE; RBC,URINE 0-5 /HPF (0-5); SQUAMOUS EPITHELIAL CELL,UR MOD Squamous (<= Few)
[2018-06-09] MEDS ORDERED: CAFFEINE/SODIUM BENZOATE 500 MG/2 ML VIAL IV ONE (20:31)
[2018-06-09] MEDS ORDERED: METOCLOPRAMIDE 10 MG/2 ML VIAL IVP STA (20:59)
[2018-06-09 21:37] VITALS: BP 172/92
== END 2018-06-09 22:00 | disposition home or self-care (01) ==
LOC: ED 17:16
DX: R00.1 Bradycardia, unspecified (principal); R55 Syncope and collapse; G43.909 Migraine, unspecified, not intractable, without status migrainosus; I10 Essential (primary) hypertension; Z79.82 Long term (current) use of aspirin
CPT/HCPCS: 36415; 80053; 81001; 81025; 83690; 85025; 93005; 96361; 96365; 96375; 99283; 99284; J1200; J2765; J7120; 81003; 87086

== ENCOUNTER 2018-07-18 22:29 | Emergency (ER) | payer OTHER ==
--- NOTE | 2018-07-18 22:46 | ED Physician Documentation ---
PD HPI SYNCOPE - Stated complaint Stated Complaint: PASSED OUT/N/V - Chief complaint Chief Complaint: Neuro - History obtained from History obtained from: Patient - History of Present Illness Witnessed: Unwitnessed Timing - onset: Today Duration: Seconds Preceding symptoms: Vision changes, Light headed, Generalized weakness Associated symptoms: Vision changes. No: Seizure, Incontinant of urine, Incontinant of stool, Headache Contributing factors: Decreased PO intake, Just stood up, Other (recent shower) Injury occurred: None Similar symptoms before: Diagnosis (syncope related to bradycardia with headaches) Recently seen: Other (w/u for gallbladder disfunction.) - Additional information Additional information: 42-year-old female with history of migraines and migraine related bradycardic syncope has been having a problem with abdominal pain over the past month she is been worked up and she has a poorly functioning gallbladder and has arrangements made to have her gallbladder out on August 03, 2018. Today she was getting ready to get into bed she had taken a shower and went to go back and to the bathroom to clean up and she found herself on the floor in the bathroom. She states that she did see green tint everything prior to passing out. She did not have headache associated with this today. She does state that she has had a marked decrease in her intake especially recently and continues to have problems with her gallbladder and abdominal pain. Review of Systems Constitutional: reports: Fatigue, Sweats. denies: Fever, Chills, Myalgias Eyes: denies: Decreased vision Ears: denies: Ear pain Nose: denies: Rhinorrhea / runny nose, Congestion Throat: denies: Sore throat Cardiac: denies: Chest pain / pressure, Palpitations Respiratory: denies: Dyspnea, Cough, Wheezing GI: reports: Abdominal Pain, Nausea : denies: Dysuria, Frequency Skin: denies: Rash Musculoskeletal: reports: Back pain. denies: Neck pain Neurologic: reports: Generalized weakness, Syncope, LOC. 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 HEENT: Tonsil/Adenoidectomy - Present Medications Home Medications: Ambulatory Orders Medication Instructions Recorded Confirmed Aspirin/Acetaminophen/Caffeine 2 each PO DAILY PRN 09/27/14 02/13/18 [Excedrin Migraine Caplet] RX: Ibuprofen 600 - 800 mg PO DAILY 09/27/14 02/13/18 Lidocaine HCl [Lidocaine HCl 15 ml PO TID PRN #100 ml 01/28/18 02/13/18 Viscous] Promethazine [Phenergan] 25 - 50 mg PO Q6H PRN #10 tab 01/28/18 02/13/18 RX: oxyCODONE [Roxicodone] 5 - 10 mg PO Q6H PRN #14 tablet 01/28/18 02/13/18 Metoclopramide [Reglan] 10 mg PO Q6H PRN #30 tablet 01/31/18 02/13/18 Ondansetron HCl [Zofran] 4 mg PO Q8HR PRN #30 tablet 01/31/18 02/13/18 Pantoprazole [Protonix] 40 mg PO DAILY #30 tablet 01/31/18 02/13/18 Sucralfate [Carafate] 1 gm PO QID #120 tablet 01/31/18 02/13/18 Metoprolol Succinate [Toprol Xl] 50 mg PO DAILY 02/13/18 02/13/18 Hydrocodone/Acetaminophen [[place] 1 each PO Q6H PRN #15 tablet 02/25/18 5-325 Tablet] Ondansetron Odt [Zofran] 4 mg TL Q6H PRN #10 tablet 02/25/18 RX: Promethazine Supp [Phenergan 25 mg MD Q6H PRN #10 supp 02/25/18 Supp] Oxycodone HCl/Acetaminophen 1 - 2 each PO Q6H PRN #14 tablet 03/22/18 [Percocet 5-325 mg Tablet] Metoclopramide [Reglan] 10 mg PO Q6H PRN #20 tablet 06/09/18 - Allergies Allergies/Adverse Reactions: Allergies Allergy/AdvReac Type Severity Reaction Status Date / Time zolpidem [From Ambien] Allergy Unknown Verified 07/18/18 22:40 Sulfa (Sulfonamide AdvReac Intermediate Hives Verified 07/18/18 22:40 Antibiotics) - Social History Does the pt smoke?: No Smoking Status: Never smoker Does the pt drink ETOH?: No Does the pt have substance abuse?: No - Immunizations Immunizations are current?: Yes - POLST Patient has POLST: No POLST Status: Full Code PD ED PE NORMAL - Vitals Vital signs reviewed: Yes (daistolic hypertension ) - General General: Alert and oriented X 3, No acute distress, Well developed/nourished - HEENT HEENT: Atraumatic, PERRL, EOMI, Other (dry mucous membranes ) - Neck Neck: Supple, no meningeal sign, No bony TTP - Cardiac Cardiac: RRR, No murmur - Respiratory Respiratory: No respiratory distress, Clear bilaterally - Abdomen Abdomen: Soft, Other (mild RUQ tenderness) - Back Back: No CVA TTP, No spinal TTP - Derm Derm: Normal color, Warm and dry, No rash - Extremities Extremities: No deformity, No edema - Neuro Neuro: Alert and oriented X 3, 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 2-12 intact, No motor deficit, No sensory deficit, Normal speech Eye Opening: Spontaneous Motor: Obeys Commands Verbal: Oriented GCS Score: 15 - Psych Psych: Normal mood, Normal affect Results - Vitals Vitals: Vital Signs - 24 hr 07/18/18 07/18/18 07/19/18 22:36 22:39 00:11 Temperature 36.2 C L 36.2 C L 36.2 C L Heart Rate 78 78 54 L Respiratory 16 16 15 Rate Blood Pressure 114/81 H 114/81 H 104/81 H O2 Saturation 100 100 100 07/19/18 01:23 Temperature Heart Rate 76 Respiratory 20 Rate Blood Pressure 115/87 H O2 Saturation 100 Oxygen O2 Source Room air - EKG (time done) 2235 Rate: Rate (enter#) (69) Rhythm: NSR Ischemia: Q waves, Non specific changes Compare to prior EKG: Changed from prior EKG (SPT 06-09-18 rate has increased) Computer interpretation: Agree with computer - Labs Labs: Laboratory Tests 07/18/18 07/18/18 07/18/18 22:38 22:58 22:58 WBC 13.1 H RBC 4.84 Hgb 14.2 Hct 42.1 MCV 87.0 MCH 29.3 MCHC 33.7 RDW 13.9 Plt Count 237 MPV 9.1 Neut # (Auto) 10.7 H Lymph # (Auto) 1.6 [place] # (Auto) 0.8 Eos # (Auto) 0.0 Baso # (Auto) 0.1 Absolute Nucleated RBC 0.01 Nucleated RBC % 0.1 Sodium 128 L Potassium 3.6 Chloride 91 L Carbon Dioxide 21 Anion Gap 16.0 H BUN 31 H Creatinine 1.2 H Estimated GFR (MDRD) 49 L Glucose 119 H POC Whole Bld Glucose 101 H Calcium 9.6 Total Bilirubin 1.7 H AST 22 ALT 13 Alkaline Phosphatase 40 L Troponin I Total Protein 7.8 Albumin 4.9 Globulin 2.9 Albumin/Globulin Ratio 1.7 Lipase 58 H Urine Color Urine Clarity Urine pH Ur Specific [place] Urine Protein Urine Glucose (UA) Urine Ketones Urine Occult Blood Urine Nitrite Urine Bilirubin Urine Urobilinogen Ur Leukocyte Esterase Ur Microscopic Review Urine Culture Comments Urine HCG, Qual 07/18/18 07/19/18 22:58 00:00 WBC RBC Hgb Hct MCV MCH MCHC RDW Plt Count MPV Neut # (Auto) Lymph # (Auto) [place] # (Auto) Eos # (Auto) Baso # (Auto) Absolute Nucleated RBC Nucleated RBC % Sodium Potassium Chloride Carbon Dioxide Anion Gap BUN Creatinine Estimated GFR (MDRD) Glucose POC Whole Bld Glucose Calcium Total Bilirubin AST ALT Alkaline Phosphatase Troponin I < 0.04 Total Protein Albumin Globulin Albumin/Globulin Ratio Lipase Urine Color YELLOW Urine Clarity CLEAR Urine pH 6.0 Ur Specific [place] 1.020 Urine Protein NEGATIVE Urine Glucose (UA) NEGATIVE Urine Ketones 15 H Urine Occult Blood NEGATIVE Urine Nitrite NEGATIVE Urine Bilirubin NEGATIVE Urine Urobilinogen 0.2 (NORMAL) Ur Leukocyte Esterase NEGATIVE Ur Microscopic Review NOT INDICATED Urine Culture Comments NOT INDICATED Urine HCG, Qual NEGATIVE Procedures - IVC sono (time) 2255 Bedside IVC sono: IVC measures (cm) (1.06), Dehydration (est 1-2 liter deficit) PD MEDICAL DECISION MAKING - ED course Complexity details: reviewed results, re-evaluated patient, considered differential, d/w patient, d/w family ED course: 42-year-old female with a history of migraine induced syncope related to bradycardia has developed syncope today related to dehydration. Here in the emergency department she is administered normal saline 2 L with marked improve ment in her status she is able to get to the bathroom without becoming dizzy or lightheaded. She has continued issue with her gallbladder and abdominal pain. Departure - Departure Disposition: Home, Self Care Clinical Impression: Dehydration, Syncope Condition: Stable Instructions: ED Dehydration Follow-Up: Keiko Sánchez PA-C [Primary Care Provider] - Forms: Activity restrictions Discharge Date/Time: 07/19/18 02:14
[2018-07-18] MEDS ORDERED: SODIUM CHLORIDE 0.9% 1,000 ML IV ONE (23:01)
[2018-07-18 23:04] LABS: BASOPHILS # (AUTO) 0.1 10^3/uL (0.0-0.1); BASOPHILS % (AUTO) 0.5 %; EOSINOPHILS % (AUTO) 0.1 %; HGB - HEMOGLOBIN 14.2 g/dL (12.0-16.0); LYMPHOCYTES # (AUTO) 1.6 10^3/uL (1.5-3.5); LYMPHOCYTES % (AUTO) 12.2 %; MEAN CORPUSCULAR HEMOGLOBIN 29.3 pg (27.0-31.0); MEAN CORPUSCULAR HGB CONC 33.7 g/dL (32.0-36.0); MEAN PLATELET VOLUME 9.1 fL (7.9-10.8); MONOCYTES # (AUTO) 0.8 10^3/uL (0.0-1.0); MONOCYTES % (AUTO) 5.9 %; NEUTROPHILS # (AUTO) 10.7 10^3/uL (1.5-6.6); NEUTROPHILS % (AUTO) 81.3 %; PLT - PLATELET COUNT 237 10^3/uL (130-450); RED BLOOD COUNT 4.84 10^6/uL (4.20-5.40); RED CELL DISTRIBUTION WIDTH 13.9 % (12.0-15.0); WHITE BLOOD COUNT 13.1 x10^3/uL (4.8-10.8)
[2018-07-18 23:15] LABS: ALBUMIN 4.9 g/dL (3.2-5.5); ALBUMIN/GLOBULIN RATIO 1.7 (1.0-2.2); BILIRUBIN,TOTAL 1.7 mg/dL (0.2-1.0); CALCIUM 9.6 mg/dL (8.5-10.3); CREATININE 1.2 mg/dL (0.4-1.0); TOTAL PROTEIN 7.8 g/dL (6.7-8.2)
[2018-07-19] MEDS ORDERED: PROMETHAZINE INJ 25 MG in SODIUM CHLORIDE 0.9% 50 ML IV STA (00:05)
[2018-07-19 00:11] LABS: BILIRUBIN,URINE NEGATIVE (NEGATIVE); GLUCOSE, URINE (UA) NEGATIVE (NEGATIVE); KETONES,URINE (UA) 15 mg/dL (NEGATIVE); LEUKOCYTE ESTERASE, URINE NEGATIVE (NEGATIVE); NITRITE,URINE NEGATIVE (NEGATIVE); OCCULT BLOOD,URINE NEGATIVE (NEGATIVE); PROTEIN,URINE NEGATIVE (NEGATIVE); UROBILINOGEN,URINE 0.2 (NORMAL) E.U./dL (NORMAL)
[2018-07-19 00:13] LABS: CLARITY,URINE CLEAR (CLEAR); HCG UR QUAL NEGATIVE
[2018-07-19] MEDS ORDERED: SODIUM CHLORIDE 0.9% 1,000 ML IV ONE (00:52)
[2018-07-19 01:23] VITALS: BP 115/87
== END 2018-07-19 02:14 | disposition home or self-care (01) ==
LOC: ED 22:29
DX: E86.0 Dehydration (principal); R55 Syncope and collapse; I10 Essential (primary) hypertension; Z79.82 Long term (current) use of aspirin
CPT/HCPCS: 36415; 80053; 81003; 81025; 83690; 84484; 85025; 93005; 96374; 99283; 99284; J7040; 81001; 87086

== ENCOUNTER 2018-08-12 07:39 | Observation (INO) | payer OTHER ==
--- NOTE | 2018-08-12 07:55 | ED Physician Documentation ---
PD HPI SYNCOPE - Stated complaint Stated Complaint: LOW BP/SYNCOPE - Chief complaint Chief Complaint: Neuro - History obtained from History obtained from: Patient - History of Present Illness Witnessed: Witnessed Timing - onset: How many days ago (She has had 3 days of fairly consistent lightheadedness with postural changes and has had near syncope several times. This happened again overnight and into this morning. She feels reasonable when laying down. When she sits up or stands up she feels lightheaded and somewhat decreased mentation. She does have a home blood pressure cuff and has been getting readings in the 60-80 range. Her monitor had gave heart rate readings of 40 or 50 consistently through the last few days. She does have a history of bradycardic episodes with migraines in the past but has not had a headache at all in the last few days. Her bradycardia with migraines is typically been just for several hours and then improves. She is not on any medications that would slow her heart rate. She is post cholecystectomy from August 03 but is healing well with no wound redness or pain and is been able to eat and drink okay without any nausea or vomiting. She had had a bowel movement couple of days ago and once prior to that. She is not had any discomfort urinating.) Preceding symptoms: Light headed, Generalized weakness. No: Headache, Chest pain, Nausea / vomiting Associated symptoms: No: Seizure, Headache, Chest pain, Dyspnea Contributing factors: Other (had cholecystectomy 9 days ago without problems. Stomach has been feeling fine.). No: Recent med change, Noxious stimulae Injury occurred: No: Fell, Head injury Similar symptoms before: Diagnosis (Has had bradycardic episodes in the past related to migraines and has seen cardiology. No interventions done as they seem to be related to the noxious stimulus of the migraine. However she has not had any migraines in the last weeks and has not had any headache with this current several days of low heart rate and blood pressure.) Recently seen: Surgery (9 days ago without problems) Review of Systems Constitutional: denies: Fever, Chills, Myalgias Nose: denies: Rhinorrhea / runny nose, Congestion Throat: denies: Sore throat Cardiac: denies: Chest pain / pressure, Palpitations (but feeling of slow heart rate) Respiratory: denies: Dyspnea, Cough GI: denies: Abdominal Pain, Nausea, Vomiting, Constipation, Diarrhea : denies: Dysuria Skin: denies: Rash Neurologic: reports: Generalized weakness, Near syncope. 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 HEENT: Tonsil/Adenoidectomy - Present Medications Home Medications: Ambulatory Orders Medication Instructions Recorded Confirmed Ibuprofen 600 - 800 mg PO DAILY 09/27/14 02/13/18 oxyCODONE [Roxicodone] 5 - 10 mg PO Q6H PRN #14 tablet 01/28/18 02/13/18 Ondansetron Odt [Zofran] 4 mg TL Q6H PRN #10 tablet 02/25/18 Chlorthalidone 08/12/18 Ketorolac Tromethamine 30 mg IJ 08/12/18 Lisinopril 10 mg PO 08/12/18 Rizatriptan Benzoate [Maxalt] 08/12/18 - Allergies Allergies/Adverse Reactions: Allergies Allergy/AdvReac Type Severity Reaction Status Date / Time zolpidem [From Ambien] Allergy Unknown Verified 08/12/18 08:27 Sulfa (Sulfonamide AdvReac Intermediate Hives Verified 08/12/18 08:27 Antibiotics) - Social History Does the pt smoke?: No Smoking Status: Never smoker Does the pt drink ETOH?: No Does the pt have substance abuse?: No - Immunizations Immunizations are current?: Yes - POLST Patient has POLST: No POLST Status: Full Code PD ED PE NORMAL - Vitals Vital signs reviewed: Yes (Initial BP is low and HR inappropriately slow (65 with walking, 30-40 rest)) - General General: Alert and oriented X 3, No acute distress, Well developed/nourished - HEENT HEENT: Moist mucous membranes, Pharynx benign - Neck Neck: Supple, no meningeal sign, No adenopathy - Cardiac Cardiac: No murmur. No: RRR (bradycardic but regular) - Respiratory Respiratory: Clear bilaterally - Abdomen Abdomen: Soft, Non tender, Other (surgical wounds healing well without t enderness nor signs of infection. ) - Back Back: No CVA TTP - Derm Derm: Normal color, Warm and dry - Extremities Extremities: No deformity, No tenderness to palpate, Normal ROM s pain, No edema, No calf tenderness / cord - Neuro Neuro: Alert and oriented X 3, No motor deficit, Normal speech Results - Vitals Vitals: Vital Signs - 24 hr 08/12/18 08/12/18 08/12/18 07:42 08:07 08:30 Temperature 36.1 C L Heart Rate 65 38 L 38 L Heart Rate [ Sitting] Heart Rate [ Standing] Heart Rate [ Supine] Respiratory 16 16 Rate Blood Pressure 84/52 L 120/69 125/80 Blood Pressure [Sitting] Blood Pressure [Standing] Blood Pressure [Supine] O2 Saturation 100 100 100 08/12/18 08/12/18 08/12/18 09:17 09:49 09:56 Temperature Heart Rate 40 L 54 L Heart Rate [ 66 Sitting] Heart Rate [ 77 Standing] Heart Rate [ 43 L Supine] Respiratory 16 15 Rate Blood Pressure 130/79 139/79 H Blood Pressure 106/72 [Sitting] Blood Pressure [Standing] Blood Pressure 139/79 H [Supine] O2 Saturation 100 100 08/12/18 08/12/18 08/12/18 10:00 10:30 11:00 Temperature Heart Rate 44 L 37 L 41 L Heart Rate [ Sitting] Heart Rate [ Standing] Heart Rate [ Supine] Respiratory 12 16 15 Rate Blood Pressure 110/70 139/79 H 106/72 Blood Pressure [Sitting] Blood Pressure [Standing] Blood Pressure [Supine] O2 Saturation 100 100 100 08/12/18 08/12/18 08/12/18 11:51 12:00 12:02 Temperature Heart Rate 89 55 L Heart Rate [ 75 Sitting] Heart Rate [ 61 Standing] Heart Rate [ 89 Supine] Respiratory 99 H 14 Rate Blood Pressure 119/67 95/57 L Blood Pressure 107/72 [Sitting] Blood Pressure 119/67 [Standing] Blood Pressure [Supine] O2 Saturation 20 L 100 Oxygen O2 Source Room air - EKG (time done) at triage Rate: Ghanshyam Rhythm: Sinus bradycardia [place]: Normal Intervals: Normal OK QRS: Normal Ischemia: Normal ST segments. No: ST elevation c/w ischemia, ST depression - Labs Labs: Laboratory Tests 08/12/18 08/12/18 08/12/18 08:12 08:12 08:12 WBC 12.9 H RBC 4.42 Hgb 12.7 Hct 38.3 MCV 86.8 MCH 28.8 MCHC 33.3 RDW 14.3 Plt Count 319 MPV 8.4 Neut # (Auto) 8.7 H Lymph # (Auto) 2.1 [place] # (Auto) 1.4 H Eos # (Auto) 0.6 Baso # (Auto) 0.1 Absolute Nucleated RBC 0.00 Nucleated RBC % 0.0 Sodium 130 L Potassium 3.7 Chloride 95 L Carbon Dioxide 23 Anion Gap 12.0 BUN 15 Creatinine 1.1 H Estimated GFR (MDRD) 54 L Glucose 117 H Calcium 9.5 Magnesium 1.7 Total Bilirubin 0.2 AST 17 ALT 21 Alkaline Phosphatase 38 L Troponin I < 0.04 Total Protein 6.8 Albumin 3.8 Globulin 3.0 Albumin/Globulin Ratio 1.3 Lipase 70 H TSH Urine Color Urine Clarity Urine pH Ur Specific [place] Urine Protein Urine Glucose (UA) Urine Ketones Urine Occult Blood Urine Nitrite Urine Bilirubin Urine Urobilinogen Ur Leukocyte Esterase Ur Microscopic Review Urine Culture Comments 08/12/18 08/12/18 08:12 10:35 WBC RBC Hgb Hct MCV MCH MCHC RDW Plt Count MPV Neut # (Auto) Lymph # (Auto) [place] # (Auto) Eos # (Auto) Baso # (Auto) Absolute Nucleated RBC Nucleated RBC % Sodium Potassium Chloride Carbon Dioxide Anion Gap BUN Creatinine Estimated GFR (MDRD) Glucose Calcium Magnesium Total Bilirubin AST ALT Alkaline Phosphatase Troponin I Total Protein Albumin Globulin Albumin/Globulin Ratio Lipase TSH 0.99 Urine Color YELLOW Urine Clarity CLEAR Urine pH 6.0 Ur Specific [place] 1.010 Urine Protein NEGATIVE Urine Glucose (UA) NEGATIVE Urine Ketones NEGATIVE Urine Occult Blood NEGATIVE Urine Nitrite NEGATIVE Urine Bilirubin NEGATIVE Urine Urobilinogen 0.2 (NORMAL) Ur Leukocyte Esterase NEGATIVE Ur Microscopic Review NOT INDICATED Urine Culture Comments NOT INDICATED PD MEDICAL DECISION MAKING - ED course Complexity details: re-evaluated patient (She was not having any headache or pain on arrival or the last day or 2. Here she states she is having some neck pain develop when she turned in the bed. Her heart rate actually improved some with that from the 30s or 40s up to 60. She is still however posturally hypotensive with near syncope on standing after 2 and half liters of fluid and her heart rate is actually improved a little bit. I do not feel she is stable for discharge. I talked with Dr. Yoo who is on for [facility] and he felt the patient had likely she is related to dehydration or vagal response to stimuli and did not feel that likely primarily cardiac rate related. I then talked with our hospitalist regarding admission here.), considered differential (She has had bradycardia in the past related to migraines. She is not having any headache currently. She does not have any other apparent to noxious stimuli nor signs of infection. We will check electrolytes on blood test. We will give her some IV fluids. However her heart rate is primarily low and I presume that the initiating cause of her lightheadedness. She is on lisinopril for for typically higher blood pressure. She is not on any beta-blockers or calcium blockers (she used to be on metoprolol but has not been on it for several months or more).), d/w patient Departure - Departure Disposition: ED Place in Observation Clinical Impression: Near syncope, Bradycardia Hypotension Qualifiers: Hypotension type: unspecified hypotension type Qualified Code(s): I95.9 - Hypotension, unspecified Condition: Stable Record reviewed to determine appropriate education?: Yes
[2018-08-12] MEDS ORDERED: SODIUM CHLORIDE 0.9% 1,000 ML IV ONE ×3 (08:27→10:32)
[2018-08-12 08:33] LABS: BASOPHILS # (AUTO) 0.1 10^3/uL (0.0-0.1); BASOPHILS % (AUTO) 0.9 %; EOSINOPHILS # (AUTO) 0.6 10^3/uL (0.0-0.7); EOSINOPHILS % (AUTO) 4.8 %; HGB - HEMOGLOBIN 12.7 g/dL (12.0-16.0); LYMPHOCYTES # (AUTO) 2.1 10^3/uL (1.5-3.5); LYMPHOCYTES % (AUTO) 16.1 %; MEAN CORPUSCULAR HEMOGLOBIN 28.8 pg (27.0-31.0); MEAN CORPUSCULAR HGB CONC 33.3 g/dL (32.0-36.0); MEAN CORPUSCULAR VOLUME 86.8 fL (81.0-99.0); MEAN PLATELET VOLUME 8.4 fL (7.9-10.8); MONOCYTES # (AUTO) 1.4 10^3/uL (0.0-1.0); MONOCYTES % (AUTO) 10.7 %; NEUTROPHILS # (AUTO) 8.7 10^3/uL (1.5-6.6); NEUTROPHILS % (AUTO) 67.5 %; PLT - PLATELET COUNT 319 10^3/uL (130-450); RED BLOOD COUNT 4.42 10^6/uL (4.20-5.40); RED CELL DISTRIBUTION WIDTH 14.3 % (12.0-15.0); WHITE BLOOD COUNT 12.9 x10^3/uL (4.8-10.8)
[2018-08-12 08:46] LABS: ALBUMIN 3.8 g/dL (3.2-5.5); ALBUMIN/GLOBULIN RATIO 1.3 (1.0-2.2); BILIRUBIN,TOTAL 0.2 mg/dL (0.2-1.0); CALCIUM 9.5 mg/dL (8.5-10.3); CREATININE 1.1 mg/dL (0.4-1.0); MAGNESIUM 1.7 mg/dL (1.7-2.8); TOTAL PROTEIN 6.8 g/dL (6.7-8.2)
[2018-08-12] MEDS ORDERED: IBUPROFEN 600 MG TABLET PO STA (09:04)
[2018-08-12] MEDS ORDERED: POTASSIUM CHLOR 10 MEQ/100 ML 10 MEQ/100 ML BAG IV ONE (09:23)
[2018-08-12 10:43] LABS: BILIRUBIN,URINE NEGATIVE (NEGATIVE); GLUCOSE, URINE (UA) NEGATIVE (NEGATIVE); KETONES,URINE (UA) NEGATIVE (NEGATIVE); LEUKOCYTE ESTERASE, URINE NEGATIVE (NEGATIVE); NITRITE,URINE NEGATIVE (NEGATIVE); OCCULT BLOOD,URINE NEGATIVE (NEGATIVE); PROTEIN,URINE NEGATIVE (NEGATIVE); UROBILINOGEN,URINE 0.2 (NORMAL) E.U./dL (NORMAL)
[2018-08-12 10:44] LABS: CLARITY,URINE CLEAR (CLEAR)
[2018-08-12] MEDS ORDERED: MORPHINE 10 MG/ML VIAL IVP STA (11:49)
[2018-08-12] MEDS ORDERED: oxyCODONE 5 MG TABLET PO PRN (12:29)
[2018-08-12] MEDS ORDERED: ONDANSETRON ODT 4 MG TABLET TL PRN ×2 (12:29→13:26)
[2018-08-12] MEDS ORDERED: ONDANSETRON 4 MG/2 ML VIAL IVP PRN ×2 (12:29→13:26)
[2018-08-12] MEDS ORDERED: ACETAMINOPHEN 325 MG TABLET PO PRN (12:29)
[2018-08-12] MEDS ORDERED: SODIUM CHLORIDE FLUSH 0.9% 10 ML SYRINGE IVP PRN ×2 (12:29→13:26)
[2018-08-12] MEDS ORDERED: TEMAZEPAM 15 MG CAPSULE PO PRN ×2 (12:29→13:26)
[2018-08-12] MEDS ORDERED: SODIUM CHLORIDE 0.9% 1,000 ML IV SCH (13:00)
[2018-08-12] MEDS: SODIUM CHLORIDE 0.9% 1,000 ML IV SCH (14:23)
--- NOTE | 2018-08-12 16:59 | HISTORY & PHYSICAL EXAMINATION ---
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 She has had a long-standing history of these events which are typically triggered by a migraine followed by bradycardia, lightheadedness and near-syncope. She has had prior admission and seen cardiologists without intervention as these have seemed to be vasovagal related to the noxious stimuli of her migraines. This episode, however, was not associated with a migraine. These symptoms started 3 days ago. She consistently becomes light-headed and nearly fainting any time she stands or sits up. She collapsed a couple times at home yesterday but did not lose consciousness. 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 She is not on any medications to slow her HR. She had a cholecystecomy on August 03 which she had been recovering well from (walking, eating, bowel movements). She describes her abdominal pain as a dull ache 3/10, and occasionally 6/10 when it "flares". This has been unchanged since her surgery August 03. She also has chronic neck and back pain. She rates this as a 2- 3/10, however, when she stands she feels like someone is "whacking her in the back of the head", rating it 9/10 pain. She describes this pain does not precede her light-headedness. It all occurs at once. She also condones slight changes in her vision over the past couple days, as things appear slightly blurry and she has to focus hard to see some things. In the ED, her EKG showed SB in the 30s. She also received IVF. She was admitted for observation for her bradycardia. (Janette Babcock) History - Past Medical History Cardiovascular: reports: Hypertension, Murmur, Arrhythmia Respiratory: reports: None Neuro: reports: Migraines, Other (Chronic neck/back pain. Has spinal lesions of C-spine and T-spine ) Endocrine/Autoimmune: reports: None GI: reports: None LEAD MINER: reports: None : reports: None HEENT: reports: Other (Mild visual changes for past 3 days) Psych: reports: Depression Musculoskeletal: reports: Other (Chronic back/neck pain) Derm: reports: None MRSA Hx?: No Other Past Medical History: syrinx, demyelinazation MS ruled out, positive GEORGE - Past Surgical History General: reports: Cholecystectomy /LEAD MINER: reports: section HEENT: reports: Tonsil/Adenoidectomy - Family & Social History Family History: Mother: Alive and Well, Father: Alive and Well Family History Comment/Other: Negative for significant cardiovascular disease, diabetes, stroke, cancer or endocrine disease. Mom: Factor V Leiden, Dad: GERD Living arrangement: At home Living Situation: With spouse/s.o. Social History Notes: She lives in [place] with her and her daughter. Daughter is 11 years old. Patient has never smoked. She drinks very rarely. She has no history of recreational substance abuse. Specifically there is no doc history of cannabis use. - Substance History Use: Uses substance without health or social issues: NONE Abuse: Recurrent use of substance despite neg consequences: NONE Dependence: Experiences withdrawal or developed tolerances: NONE - POLST Patient has POLST: No POLST Status: Full Code <Janette Babcock - Last Filed: 08/12/18 17:36> Meds/Allgy <Janette Babcock - Last Filed: 08/12/18 17:36> <Kiarra Lamb - Last Filed: 08/12/18 19:54> - Home Medications Home Medications: Ambulatory Orders Medication Instructions Recorded Confirmed Acetaminophen 1,000 mg PO Q8H PRN 08/12/18 08/12/18 Chlorthalidone 12.5 mg PO DAILY 08/12/18 08/12/18 Ibuprofen 600 mg PO Q6H 08/12/18 08/12/18 Ketorolac Tromethamine 30 mg IM PRN PRN 08/12/18 08/12/18 Lisinopril 10 mg PO DAILY 08/12/18 08/12/18 Ondansetron [Ondansetron Odt] 8 mg PO PRN PRN 08/12/18 08/12/18 Oxycodone HCl 10 mg PO QPM 08/12/18 08/12/18 Rizatriptan Benzoate [Maxalt] 10 mg PO PRN PRN 08/12/18 08/12/18 Tizanidine HCl [Zanaflex] 08/12/18 diphenhydrAMINE [Benadryl] 50 mg PO PRN 08/12/18 - Allergies Allergies/Adverse Reactions: Allergies Allergy/AdvReac Type Severity Reaction Status Date / Time zolpidem [From Ambien] Allergy Unknown Verified 08/12/18 08:27 Sulfa (Sulfonamide AdvReac Intermediate Hives Verified 08/12/18 17:47 Antibiotics) Review of Systems - Eyes Eyes: reports: Blurred vision - Cardiovascular Cariovascular: reports: Lightheadedness - Gastrointestinal Gastrointestinal: reports: Abdominal pain - Musculoskeletal Musculoskeletal: reports: Back pain - All Other Systems All Other Systems: reports: Reviewed and negative <Janette Babcock - Last Filed: 08/12/18 17:36> - Ears, Nose & Throat Ears, Nose & Throat: denies: Hearing loss, Hearing aids, Vertigo - Cardiovascular Cariovascular: reports: Syncope. denies: Irregular heart rate, Palpitations, Chest pain - Respiratory Respiratory: denies: Cough, Sputum production, Wheezing, Snoring - Gastrointestinal Gastrointestinal: denies: Change in bowel habits, Black stools, Bloody stools - Genitourinary Genitourinary: denies: Dysuria, Frequency, Urgency, Hematuria - Integumentary Integumentary: denies: Rash, Pruritis, Lesions, Dryness - Neurological Neurological: reports: Headache. denies: General weakness, Focal weakness, Di zziness, Numbness, Memory problems, Pre-existing deficit, Seizures, Slurred speech - Psychiatric Psychiatric: reports: Anxiety (related to a job situation, but no recent problems. Years ago.). denies: Depression - Endocrine Endocrine: denies: Polyuria, Polydypsia, Polyphagia, Intolerance to cold - Hematologic/Lymphatic Hematologic/Lymphatic: denies: Anemia, Bruising, Petechiae <Kiarra Lamb - Last Filed: 08/12/18 19:54> <Kiarra Lamb - Last Filed: 08/12/18 19:54> Prior Level of Functionality: Independent. Drives. Does her own activities of daily living and pays the bills. (Kiarra Lamb) Exam - Vital Signs Reviewed Vital Signs: Yes - Physical Exam General Appearance: positive: No acute distress, Alert Eyes Bilateral: positive: Normal inspection, PERRL ENT: positive: ENT inspection nml, Pharynx nml Neck: positive: Nml inspection, Thyroid nml, No JVD, Trachea midline Respiratory: positive: Chest non-tender, No respiratory distress, Breath sounds nml Cardiovascular: positive: No murmur (History of Grade I murmur, unable to auscultate), No gallop, Bradycardia Peripheral Pulses: positive: 2+ Abdomen: positive: Nml bowel sounds, No distention, Tenderness Back: positive: Nml inspection Skin: positive: Color nml, No rash, Warm, Dry Neurologic/Psychiatric: positive: Oriented x3, Motor nml, Sensation nml <Janette Babcock - Last Filed: 08/12/18 17:36> <Kiarra Lamb - Last Filed: 08/12/18 19:54> - Vital Signs Vital Signs: Vital Signs x48h Temp Pulse Pulse Pulse Pulse Pulse Resp 08/12/18 16:15 36.3 C L 50 L 16 08/12/18 15:33 36.5 C 53 L 15 08/12/18 13:43 36.5 C 44 L 18 08/12/18 13:00 53 L 15 08/12/18 12:30 59 L 13 08/12/18 12:02 75 61 89 08/12/18 12:00 55 L 14 08/12/18 11:51 89 99 H 08/12/18 11:00 41 L 15 08/12/18 10:30 37 L 16 08/12/18 10:00 44 L 12 08/12/18 09:56 66 77 43 L 08/12/18 09:49 54 L 15 08/12/18 09:17 40 L 16 BP BP BP BP BP Pulse Ox 08/12/18 16:15 107/66 100 08/12/18 15:33 100 08/12/18 13:43 132/82 H 100 08/12/18 13:00 133/87 H 100 08/12/18 12:30 139/79 H 100 08/12/18 12:02 107/72 119/67 08/12/18 12:00 95/57 L 100 08/12/18 11:51 119/67 20 L 08/12/18 11:00 106/72 100 08/12/18 10:30 139/79 H 100 08/12/18 10:00 110/70 100 08/12/18 09:56 106/72 139/79 H 08/12/18 09:49 139/79 H 100 08/12/18 09:17 130/79 100 - Physical Exam Comments/Other: Patient examined by me, supervising attending, and exam is negative. She is an alert oriented slender middle-aged female who looks her stated age. She does have hyperpigmentation/tanned appearance of face and chest wall. Otherwise negative cardiac, pulmonary, abdominal exam. (Kiarra Lamb) Conclusion/Plan - Problem List (1) Bradycardia Conclusion/Plan: Presents with lightheadedness, postural changes and near-syncopal episodes. She has had a long-standing history of these events which are typically triggered by a migraine followed by bradycardia, lightheadedness and near-syncope. She has had prior admission and seen cardiologists without intervention as these have seemed to be vasovagal related to the noxious stimuli of her migraines. This episode, however, was not associated with a migraine. 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 EKG showed Sinus Bradycardia in the 30s. Currently SB 40-50s on monitor. Continu e to monitor on tele. (2) Hypotension Conclusion/Plan: SBP stable this admission (currently low 100s-130), however patient had readings of SBP 60-80s at home. Receiving NS at 100ml/hr for hydration. Qualifiers: Hypotension type: unspecified hypotension type Qualified Code(s): I95.9 - Hypotension, unspecified (3) Abdominal pain Conclusion/Plan: Reports abdominal pain from cholecystectomy on August 03. This pain is unchanged, 3/10 dull ache and up to a 6/10 sharp pain at times. Has been taking Tylenol around the clock since her surgery per her surgeons recommendation. Qualifiers: Abdominal location: upper abdomen, unspecified Qualified Code(s): R10.10 - Upper abdominal pain, unspecified - Lab Results Fish Bones: 08/12/18 08:12 08/12/18 08:12 <Janette Babcock - Last Filed: 08/12/18 17:36> - Problem List (1) Bradycardia Conclusion/Plan: Differential diagnoses discussed as the possible causes of her bradycardia include tachybradycardia syndrome, hypothyroidism, adrenal disorder, blocks from lymes disease or autoimmune disorder and neurological anatomical malformation such as a syrinx. She does have hyponatremia, hyperpigmentation. Will check TSH, GEORGE w reflex, cortisol level, Serum ACTH, MRI of the head. (2) Hypotension Conclusion/Plan: Patient anticipates that her blood pressure will bounce back. It usually does. Other than the work-up that we have already indicated for bradycardia, no further work-up. Qualifiers: Hypotension type: unspecified hypotension type Qualified Code(s): I95.9 - Hypotension, unspecified (3) Migraine Conclusion/Plan: the patient uses PRN medications in the outpatient setting. Will continue same. Qualifiers: Migraine type: without aura Status migrainosus presence: without status migrainosus Intractability: not intractable Qualified Code(s): G43.009 - Migraine without aura, not intractable, without status migrainosus (4) Abdominal pain Conclusion/Plan: At this time her abdominal pain is expected. No nefarious causes on examina tion. No further work-up. Qualifiers: Abdominal location: upper abdomen, unspecified Qualified Code(s): R10.10 - Upper abdominal pain, unspecified (5) Leukocytosis Conclusion/Plan: Her white cell count is elevated with this evaluation. But in evaluating the medical record she is been chronically elevated off and on. The differential does not state that there is any monocytosis eosinophilia or atypical lymphs much less immature cells. In the outpatient setting, she may warrant an evaluation with oncology if only to type to loose ends for all of her problems. Qualifiers: Leukocytosis type: unspecified Qualified Code(s): D72.829 - Elevated white blood cell count, unspecified - Lab Results Lab results reviewed: Yes Fish Bones: 08/12/18 08:12 08/12/18 08:12 - EKG Results EKG Interpreted Independently: No EKG Comparison: Unchanged from prior EKG <Kiarra Lamb - Last Filed: 08/12/18 19:54> - EKG Results EKG Findings: Normal sinus rhythm. Sinus bradycardia to [address]-T wave changes (Kiarra Lamb) Core Measures - Anticipated LOS I expect patient to be DC'd or transferred within 96 hours.: Yes - DVT/VTE - Prophylaxis VTE/DVT Device ordered at admit?: Yes <Kiarra Lamb - Last Filed: 08/12/18 19:54>
[2018-08-12] MEDS ORDERED: SODIUM CHLORIDE FLUSH 0.9% 10 ML SYRINGE IVP SCH (17:00)
[2018-08-12] MEDS: ACETAMINOPHEN 325 MG TABLET PO PRN (20:17)
[2018-08-12] MEDS: SODIUM CHLORIDE FLUSH 0.9% 10 ML SYRINGE IVP SCH (20:18)
[2018-08-12] MEDS ORDERED: MIDODRINE 2.5 MG TABLET PO PRN (20:29)
[2018-08-12] MEDS: oxyCODONE 5 MG TABLET PO PRN (22:36)
[2018-08-12] MEDS: KETOROLAC 30 MG/ML VIAL IVP PRN (23:58)
[2018-08-13] MEDS: SODIUM CHLORIDE 0.9% 1,000 ML IV SCH (00:01)
[2018-08-13] MEDS: oxyCODONE 5 MG TABLET PO PRN ×2 (03:31→12:17)
[2018-08-13] MEDS: ACETAMINOPHEN 325 MG TABLET PO PRN ×2 (03:32→12:16)
[2018-08-13] MEDS: SODIUM CHLORIDE FLUSH 0.9% 10 ML SYRINGE IVP SCH ×2 (03:48→08:10)
[2018-08-13 08:04] VITALS: BP 91/54
[2018-08-13] MEDS ORDERED: LORazepam 2 MG/ML VIAL IVP ONE (08:05)
[2018-08-13] MEDS: KETOROLAC 30 MG/ML VIAL IVP PRN (08:10)
[2018-08-13] MEDS ORDERED: POLYETHYLENE GLYCOL 3350 17 GM PACKET PO SCH ×2 (09:00)
--- NOTE | 2018-08-13 09:58 | MRI Report ---
Reason: headaches w bradycardia Procedure Date: 08/13/2018 Accession Number: [id number] / [id number] Procedure: MRI - Brain W/O CPT Code: FULL RESULT: EXAM: MRI BRAIN WITHOUT CONTRAST EXAM DATE: 08/13/2018 09:32 AM. CLINICAL HISTORY: Headaches with bradycardia. COMPARISON: None. TECHNIQUE: Multiplanar, multisequence T1-weighted and fluid-sensitive MR sequences of the brain were performed. Sequences optimized for routine evaluation. Other: None. IV Contrast: None. FINDINGS: No cerebellar tonsillar ectopia is present. No abnormal restricted diffusion signal on magnetic susceptibility is identified in the brain parenchyma. Ventricles and sulci are within normal limits for the patient's age. No extra-axial fluid collections present. No abnormal T2 or FLAIR hyperintensities are seen in the brain parenchyma. No mass is present in either orbit. No mass is present in either Meckel's cave. No mass is present in either orbit. No mass is present in either Meckel's cave. No abnormal T1 shortening is seen in the brain parenchyma. There is an expected flow void in the superior sagittal sinus. IMPRESSION: 1. No acute CVA. 2. No intracranial mass. RADIA
--- NOTE | 2018-08-13 10:45 | Discharge Plan ---
Discharge Plan Disposition: Home, Self Care Condition: Stable Prescriptions: Midodrine 10 mg PO TID PRN #30 tablet PRN Reason: SBP<90 or DBP<50 oxyCODONE [Roxicodone] 5 mg PO Q8H PRN #6 tablet PRN Reason: Pain 5 to 7 Diet: Regular Activity Restrictions: Activity as Tolerated Shower Restrictions: No Driving Restrictions: No Additional Instructions or Follow Up instructions: Unfortunately you have recurrent bradycardia which is a very low heart rate. The low heart rate then in turn causes you to become dizzy because of the low blood pressure and you may suddenly faint. We have checked the MRI of your head which is negative. You do have history of a syrinx but that is new. We checked her cortisol levels and those are normal. Thyroid function studies are normal. EKG shows no other arrhythmia other than sinus bradycardia. We would recommend that you follow-up with [facility] cardiology. Please have your primary care provider make that referral. In the meantime see your primary care provider in the next 1 to 2 weeks. You have asked for 2 days of oxycodone. 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 We have also sent you home on Midrin which is a medicine that raises your blood pressure. Use that as needed only when your systolic blood pressure is less than 90. No Smoking: If you smoke, Please STOP! Call for help. Follow-up with: Keiko Sánchez PA-C [Primary Care Provider] -
[2018-08-15 13:47] LABS: ANA SCREEN NEGATIVE (NEGATIVE)
--- NOTE | 2018-08-17 19:23 | DISCHARGE SUMMARY ---
Physician: Kiarra Lamb MD DATE OF ADMISSION: 08/12/2018 DATE OF DISCHARGE: 08/13/2018 PRIMARY CARE PROVIDER: Keiko Sánchez. DISCHARGE DIAGNOSES 1. Sinus bradycardia. 2. Near-syncope. 3. Hypertension. 4. Migraine headache. 5. Pain at surgical incision site. 6. Leukocytosis. 7. Chronic pain syndrome, on chronic opiates. DISCHARGE MEDICATIONS 1. Acetaminophen 1000 mg every 8 hours as needed. 2. Chlorthalidone 12.5 mg daily. 3. Benadryl 50 mg to be taken with ketorolac and Zofran during migraine headaches. 4. Ibuprofen 600 mg every 6 hours as needed for pain. 5. Ketorolac 30 mg IM p.r.n. migraine headache. 6. Lisinopril 10 mg daily. 7. Zofran 8 mg daily p.r.n. nausea for migraine headaches. 8. Oxycodone 10 mg every evening. 9. Maxalt 10 mg every day p.r.n. headache. 10. Zanaflex 4 mg capsule 3 times a day as needed for spasm. 11. Midodrine 10 mg p.o. t.i.d. p.r.n. #30. 12. Patient requested Oxycodone 5 mg every 8 hours #6 tablets to go home. PRINCIPAL PROCEDURES 1. Brain MRI that was normal. No intracranial pathology identified. 2. TSH was 0.99 and 1.62. 3. Cortisol level was normal at 13.3 in the morning. 4. Sodium is 130. HOSPITAL COURSE: She is a 42-year-old female who has a long history of bradycardia. She was admitted once in 2014 because of cough syncope. At that time, she was actually referred to cardiology and seen by [facility]iology including EPS. They felt that she had simple sinus bradycardia, and this did not require treatment. She was told that if her pulse got low, and she felt tired, to "drink a can of Coke." She has continued to have syncope with bradycardia. She has had a couple of episodes, for which she was seen in the emergency room and sent home. With an episode of bradycardia in 2016, she was seen in the emergency room because of the near-syncope. This time she had inverted T waves in her EKG, and she was sent to [facility]. From [facility], she was sent home without any other workup or recommendations. She returns this time because the bradycardia is to the 30s, and she has had several episodes of near-syncope since yesterday and today. Usually her bradycardia and near- syncope is associated with a migraine headache. As such has been felt to be vasovagal. At this time, there has been no headache. No new medications. She does take chronic opioids for chronic pain management and has a pain specialist that she sees on the [facility]. She came to the emergency room. Cardiology at [facility] was spoken to over the phone. They did not feel the patient needed to be transferred or evaluated. After that, she was placed in observation. She does have a history of a syrinx. MRI of the head was done and noncontributory. We thought about hyponatremia, hypotension, and she does have hyperpigmentation in certain areas of her face and body. We did a cortisol level, and that was normal. TSH is normal. She does not have any other manifestations of hypothyroidism. Overnight, she did have intermittent bradycardia with intermittent hypotension but quickly recovered on her own. The lowest she got was 37 in the ED and 45 in the floor. The lowest blood pressure she got was 91/54, and then she would rebound to the 120s over 70s. Orthostatic blood pressure showed her to be supine 114/73, sitting 107/68, and standing 91/54. She received 2 liters of IV fluid and a bolus, it did not make much difference. I then spoke to [facility] to see if they would recommend anything different. The woven paper hat mender explained that there are some people who have a very exaggerated vagal response. She may be one of them. She really was loathe to put a pacemaker in someone who is healthy and young. As such overnight, the patient was observed. No sinus bradycardia. No arrhythmias. No change in neurological exam. We added midodrine to be added as needed when she was dizzy. We have also recommended she be followed up by [facility] cardiology for any other possible workup. She is discharged in stable condition. PHYSICAL EXAMINATION VITAL SIGNS: Temperature of 36.7, pulse 69, blood pressure 114/73. She is a slender, alert, oriented white female, in no acute distress. She is 5 feet 3 inches tall, 52 kg. NECK: Supple. No JVD. LUNGS: Clear to auscultation and percussion. CARDIAC: She has a regular rate and rhythm. ABDOMEN: Soft, nontender. NEUROLOGIC: She walks without any ataxia, she is alert and oriented, eating food. Ambulating in her room and going to the bathroom by herself. She is hoping to follow up with her primary care provider in the next 1-2 weeks. TD: 08/17/2018 14:46 MTDD
[2018-08-18 20:22] LABS: 18 KD (IGG) BAND NON-REACTIVE; 23 KD (IGG) BAND NON-REACTIVE; 23 KD (IGM) BLOT NON-REACTIVE; 28 KD (IGG) BAND NON-REACTIVE; 30 KD (IGG) BAND NON-REACTIVE; 39 KD (IGG) BAND NON-REACTIVE; 39 KD (IGM) BLOT NON-REACTIVE; 41 KD (IGG) BAND REACTIVE; 41 KD (IGM) BLOT NON-REACTIVE; 45 KD (IGG) BAND NON-REACTIVE; 58 KD (IGG) BAND NON-REACTIVE; 66 KD (IGG) BAND NON-REACTIVE; 93 KD (IGG) BAND REACTIVE
== END 2018-08-13 12:55 | disposition home or self-care (01) ==
LOC: ED 07:39 → MS2 12:29 → ED 13:21
PROVIDERS: ADMIT Specialist; ATTEND Specialist
DX: R00.1 Bradycardia, unspecified (principal); I10 Essential (primary) hypertension; G43.909 Migraine, unspecified, not intractable, without status migrainosus; G89.18 Other acute postprocedural pain; D72.829 Elevated white blood cell count, unspecified; M54.2 Cervicalgia; M54.9 Dorsalgia, unspecified; G89.4 Chronic pain syndrome; Z79.891 Long term (current) use of opiate analgesic; E87.1 Hypo-osmolality and hyponatremia; L81.9 Disorder of pigmentation, unspecified
CPT/HCPCS: 36415; 70551; 81003; 82533; 83690; 83735; 84443; 84484; 85379; 86038; 86617; 93005; 96361; 96365; 96375; 96376; 99284; A9270; G0378; J2060; 80053; 81001; 85025; 87086

== ENCOUNTER 2018-10-11 07:12 | Emergency (ER) | payer OTHER ==
[2018-10-11] MEDS ORDERED: SODIUM CHLORIDE 0.9% 1,000 ML IV ONE ×2 (07:51→11:48)
[2018-10-11] MEDS ORDERED: LORazepam 2 MG/ML VIAL IVP STA (07:51)
--- NOTE | 2018-10-11 07:56 | ED Physician Documentation ---
PD HPI CHEST PAIN - Stated complaint Stated Complaint: CHEST PX/VOMITING - Chief complaint Chief Complaint: Cardiac - History obtained from History obtained from: Patient, Family - History of Present Illness Timing - onset: Enter time ( 399), Today Timing - onset during: Sleep Timing - duration: Hours Timing - details: Abrupt onset, Still present Quality: Pressure, Tightness, Sharp Location: Upper back Radiation: Back Improved by: Nothing Worsened by: Exertion, Inspiration Associated symptoms: Shortness of air, Nausea, Vomiting Similar symptoms before: Has not had sx before Recently seen: Emergency Dept - Additional information Additional information: 42-year-old female with a history of bradycardia and syncope related to her migraines developed a headache last night and she had improvement of the headache and then developed a pain in the middle portion of her upper back between her shoulder blades that was severe. She has had this pain since that time she has worsening of the pain with deep breath. Makes it difficult for her to get a full deep breath and she felt that the pain was worse on ambulation to her car. She was not sick prior to this and she is recently had her gallbladder out 2 months ago and her symptoms of pain and nausea improved. She has been approved to see the drill press set up operator radial at [facility] but she has not made the appointment yet. Review of Systems Constitutional: denies: Fever, Chills, Myalgias Eyes: denies: Decreased vision Ears: denies: Ear pain Nose: denies: Rhinorrhea / runny nose, Congestion Throat: denies: Oral lesions / sores Cardiac: reports: Chest pain / pressure, Palpitations. denies: Pedal edema, Calf pain Respiratory: reports: Dyspnea. denies: Cough, Hemoptysis, Wheezing GI: reports: Nausea, Vomiting. denies: Abdominal Pain : denies: Dysuria, Frequency PD PAST MEDICAL HISTORY - Past Medical History Cardiovascular: Hypertension, Murmur, Arrhythmia Respiratory: None Neuro: Migraines, Other (Chronic neck/back pain. 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 : None HEENT: Other (Mild visual changes for past 3 days) Psych: Depression Musculoskeletal: Other (Chronic back/neck pain) Derm: None - Past Surgical History Past Surgical History: Yes General: Cholecystectomy /GUNSTOCK REPAIRER: section HEENT: Tonsil/Adenoidectomy - Present Medications Home Medications: Ambulatory Orders Medication Instructions Recorded Confirmed RX: Acetaminophen 1,000 mg PO Q8H PRN 08/12/18 08/12/18 RX: Chlorthalidone 12.5 mg PO DAILY 08/12/18 08/12/18 RX: Ibuprofen 600 mg PO Q6H 08/12/18 08/12/18 RX: Ketorolac Tromethamine 30 mg IM PRN PRN 08/12/18 08/12/18 RX: Lisinopril 10 mg PO DAILY 08/12/18 08/12/18 RX: Ondansetron [Ondansetron Odt] 8 mg PO PRN PRN 08/12/18 08/12/18 RX: Oxycodone HCl 10 mg PO QPM 08/12/18 08/12/18 RX: Rizatriptan Benzoate [Maxalt] 10 mg PO PRN PRN 08/12/18 08/12/18 RX: Tizanidine HCl [Zanaflex] 08/12/18 RX: diphenhydrAMINE [Benadryl] 50 mg PO PRN 08/12/18 RX: Midodrine 10 mg PO TID PRN #30 tablet 08/13/18 RX: oxyCODONE [Roxicodone] 5 mg PO Q8H PRN #6 tablet 08/13/18 - Allergies Allergies/Adverse Reactions: Allergies Allergy/AdvReac Type Severity Reaction Status Date / Time zolpidem [From Ambien] Allergy Unknown Verified 10/11/18 07:29 Sulfa (Sulfonamide AdvReac Intermediate Hives Verified 10/11/18 07:29 Antibiotics) - Social History Does the pt smoke?: No Smoking Status: Never smoker Does the pt drink ETOH?: No Does the pt have substance abuse?: No - Immunizations Immunizations are current?: Yes - POLST Patient has POLST: No POLST Status: Full Code PD ED PE NORMAL - Vitals Vital signs reviewed: Yes (tachy tachypneic and hypertensive) - General General: Alert and oriented X 3, Well developed/nourished, Other (acutely anxious and figiting) - HEENT HEENT: Atraumatic, PERRL, EOMI - Neck Neck: Supple, no meningeal sign, No bony TTP - Cardiac Cardiac: No murmur, Other (tachy and regular ) - Respiratory Respiratory: No respiratory distress, Clear bilaterally - Abdomen Abdomen: Soft, Non tender - Back Back: No CVA TTP, No spinal TTP - Derm Derm: Normal color, Warm and dry, No rash - Extremities Extremities: No deformity, No edema, No calf tenderness / cord - Neuro Neuro: Alert and oriented X 3, 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, No motor deficit, No sensory deficit, Normal speech Eye Opening: Spontaneous Motor: Obeys Commands Verbal: Oriented GCS Score: 15 - Psych Psych: Normal affect, Other (mood is anxious ) Results - Vitals Vitals: Vital Signs - 24 hr 10/11/18 10/11/18 10/11/18 07:26 09:11 10:19 Temperature 36.8 C 36.7 C Heart Rate 128 H 96 104 H Respiratory 26 H 22 22 Rate Blood Pressure 141/90 H 132/86 H 139/94 H O2 Saturation 97 100 97 10/11/18 10/11/18 11:29 12:57 Temperature 36.8 C Heart Rate 117 H 90 Respiratory 17 21 Rate Blood Pressure 125/77 116/76 O2 Saturation 97 98 Oxygen O2 Source Room air - EKG (time done) 0722 Rate: Rate (enter#) (131) Rhythm: Sinus tachycardia, MEJIA Ischemia: Normal ST segments Compare to prior EKG: Changed from prior EKG (SPT 08-12-18 rate has increased ) Computer interpretation: Agree with computer - Labs Labs: Laboratory Tests 10/11/18 10/11/18 10/11/18 08:25 08:25 08:25 WBC 11.3 H RBC 4.34 Hgb 13.1 Hct 38.7 MCV 89.2 MCH 30.2 MCHC 33.9 RDW 14.6 Plt Count 240 MPV 11.8 H Neut # (Auto) 9.4 H Lymph # (Auto) 1.2 L [place] # (Auto) 0.6 Eos # (Auto) 0.0 Baso # (Auto) 0.1 Absolute Nucleated RBC 0.00 Nucleated RBC % 0.0 D-Dimer Sodium 141 Potassium 3.8 Chloride 107 Carbon Dioxide 18 L Anion Gap 16.0 H BUN 17 Creatinine 1.1 H Estimated GFR (MDRD) 54 L Glucose 96 Calcium 10.0 Total Bilirubin 1.0 AST 16 ALT 12 Alkaline Phosphatase 48 Troponin I < 0.04 Total Protein 8.0 Albumin 4.8 Globulin 3.2 Albumin/Globulin Ratio 1.5 Lipase 49 Urine Color Urine Clarity Urine pH Ur Specific [place] Urine Protein Urine Glucose (UA) Urine Ketones Urine Occult Blood Urine Nitrite Urine Bilirubin Urine Urobilinogen Ur Leukocyte Esterase Urine RBC Urine WBC Ur Epithelial Cells Ur Squamous Epith Cells Urine Bacteria Urine Mucus Ur Microscopic Review Urine Culture Comments 10/11/18 10/11/18 10/11/18 08:25 09:45 12:05 WBC RBC Hgb Hct MCV MCH MCHC RDW Plt Count MPV Neut # (Auto) Lymph # (Auto) [place] # (Auto) Eos # (Auto) Baso # (Auto) Absolute Nucleated RBC Nucleated RBC % D-Dimer < 200.0 L Sodium Potassium Chloride Carbon Dioxide Anion Gap BUN Creatinine Estimated GFR (MDRD) Glucose Calcium Total Bilirubin AST ALT Alkaline Phosphatase Troponin I < 0.04 Total Protein Albumin Globulin Albumin/Globulin Ratio Lipase Urine Color YELLOW Urine Clarity HAZY Urine pH 5.5 Ur Specific [place] >=1.030 H Urine Protein 30 H Urine Glucose (UA) NEGATIVE Urine Ketones 40 H Urine Occult Blood NEGATIVE Urine Nitrite NEGATIVE Urine Bilirubin NEGATIVE Urine Urobilinogen 0.2 (NORMAL) Ur Leukocyte Esterase NEGATIVE Urine RBC 0-5 Urine WBC 4-5 Ur Epithelial Cells FEW Transitional Ur Squamous Epith Cells MANY Squamous H Urine Bacteria Many H Urine Mucus Marked Strands Ur Microscopic Review INDICATED Urine Culture Comments NOT INDICATED - Rads (name of study) chest 2 v Radiology: Prelim report reviewed (Impression: Normal two-view chest radiography.), EMP read indepedently, See rad report Procedures - IVC sono (time) 5372 Bedside IVC sono: IVC measures (cm) (1.28), Dehydration (est <1 liter deficit) PD MEDICAL DECISION MAKING - ED course Complexity details: reviewed results, re-evaluated patient, considered differential, d/w patient, d/w family ED course: 42 y/o female with tachycardia and vomiting is treated with zofran and saline and eventually she is given a dose of diluadid and improves. Departure - Departure Disposition: 01 Home, Self Care Clinical Impression: Dehydration Instructions: ED Dehydration Follow-Up: Keiko Sánchez PA-C [Primary Care Provider] - Discharge Date/Time: 10/11/18 13:08
--- NOTE | 2018-10-11 08:48 | XRAY Report ---
Reason: chest pain Procedure Date: 10/11/2018 Accession Number: [id number] / [id number] Procedure: XR - Chest 2 View X-Ray CPT Code: 42781 FULL RESULT: EXAM: CHEST RADIOGRAPHY EXAM DATE: 10/11/2018 08:39 AM. CLINICAL HISTORY: Chest pain. Interscapular pain. COMPARISON: CHEST 1 VIEW 02/25/2018 1:44 PM. TECHNIQUE: 2 views. FINDINGS: Lungs/Pleura: No focal opacities evident. No interstitial abnormality or pulmonary vascular congestion. No pleural effusion. No pneumothorax. Normal volumes. Mediastinum: Heart and mediastinal contours are unremarkable. Other: None. IMPRESSION: Normal 2-view chest radiography. RADIA
[2018-10-11 09:04] LABS: ALBUMIN 4.8 g/dL (3.2-5.5); ALBUMIN/GLOBULIN RATIO 1.5 (1.0-2.2); CREATININE 1.1 mg/dL (0.4-1.0)
[2018-10-11 09:10] LABS: BASOPHILS # (AUTO) 0.1 10^3/uL (0.0-0.1); BASOPHILS % (AUTO) 0.5 %; EOSINOPHILS % (AUTO) 0.2 %; HGB - HEMOGLOBIN 13.1 g/dL (12.0-16.0); LYMPHOCYTES # (AUTO) 1.2 10^3/uL (1.5-3.5); LYMPHOCYTES % (AUTO) 10.7 %; MEAN CORPUSCULAR HEMOGLOBIN 30.2 pg (27.0-31.0); MEAN CORPUSCULAR HGB CONC 33.9 g/dL (32.0-36.0); MEAN CORPUSCULAR VOLUME 89.2 fL (81.0-99.0); MEAN PLATELET VOLUME 11.8 fL (7.9-10.8); MONOCYTES # (AUTO) 0.6 10^3/uL (0.0-1.0); MONOCYTES % (AUTO) 5.3 %; NEUTROPHILS # (AUTO) 9.4 10^3/uL (1.5-6.6); PLT - PLATELET COUNT 240 10^3/uL (130-450); RED BLOOD COUNT 4.34 10^6/uL (4.20-5.40); RED CELL DISTRIBUTION WIDTH 14.6 % (12.0-15.0); WHITE BLOOD COUNT 11.3 x10^3/uL (4.8-10.8)
[2018-10-11] MEDS ORDERED: ONDANSETRON 4 MG/2 ML VIAL IVP STA ×2 (09:19→10:22)
[2018-10-11 09:54] LABS: GLUCOSE, URINE (UA) NEGATIVE (NEGATIVE); KETONES,URINE (UA) 40 mg/dL (NEGATIVE); LEUKOCYTE ESTERASE, URINE NEGATIVE (NEGATIVE); NITRITE,URINE NEGATIVE (NEGATIVE); OCCULT BLOOD,URINE NEGATIVE (NEGATIVE); PH,URINE 5.5 PH (5.0-7.5); PROTEIN,URINE 30 mg/dL (NEGATIVE); UROBILINOGEN,URINE 0.2 (NORMAL) E.U./dL (NORMAL)
[2018-10-11 10:02] LABS: BACTERIA,URINE Many /HPF (None Seen); BILIRUBIN,URINE NEGATIVE (NEGATIVE); CLARITY,URINE HAZY (CLEAR); EPITHELIAL CELLS,UR FEW Transitional /HPF (<= Few); ICTOTEST,URINE NEGATIVE; MUCUS,URINE Marked Strands; RBC,URINE 0-5 /HPF (0-5); SQUAMOUS EPITHELIAL CELL,UR MANY Squamous (<= Few)
[2018-10-11] MEDS ORDERED: HYDROmorphone 1 MG/ML CARPUJECT IVP STA (10:22)
[2018-10-11 12:58] VITALS: BP 116/76
== END 2018-10-11 13:08 | disposition home or self-care (01) ==
LOC: ED 07:12
DX: E86.0 Dehydration (principal); R00.0 Tachycardia, unspecified; R11.10 Vomiting, unspecified; R07.89 Other chest pain; I10 Essential (primary) hypertension
CPT/HCPCS: 36415; 71046; 80053; 81001; 83690; 84484; 85025; 85379; 93005; 96361; 96374; 96375; 99283; 99284; J1170; J2060; 81003; 87086

== ENCOUNTER 2020-08-16 21:38 | Emergency (ER) | payer OTHER ==
--- NOTE | 2020-08-16 22:49 | ED Physician Documentation ---
PD HPI HEENT - Stated complaint Stated Complaint: JAW PX - Chief complaint Chief Complaint: Heent - History obtained from History obtained from: Patient, Family - History of Present Illness Timing - onset: How many days ago (3) Timing - duration: Days (3) Timing - details: Gradual onset, Still present Location: Tooth Improves: Medication Worsens: Everything Associated symptoms: Facial swelling. No: Fever Similar symptoms before: Diagnosis (bad tooth) Recently seen: Not recently seen - Additional information Additional information: 44-year-old female with a history of bradycardia and syncope related to migraines has developed a toothache in the right lower jaw and she has some swelling to her face as well she has not had a fever with this she has a crown on that tooth and she is getting ready to go in and get some cosmetic dental work done. 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 : None HEENT: Other Psych: Depression Musculoskeletal: Other Derm: None - Past Surgical History Past Surgical History: Yes General: Cholecystectomy /FIELD TEST ENGINEER: section HEENT: Tonsil/Adenoidectomy - Present Medications Home Medications: Ambulatory Orders Medication Instructions Recorded Confirmed Acetaminophen 1,000 mg PO Q8H PRN 08/12/18 08/12/18 Chlorthalidone 12.5 mg PO DAILY 08/12/18 08/12/18 Ibuprofen 600 mg PO Q6H 08/12/18 08/12/18 Ketorolac Tromethamine 30 mg IM PRN PRN 08/12/18 08/12/18 Ondansetron [Ondansetron Odt] 8 mg PO PRN PRN 08/12/18 08/12/18 Oxycodone HCl 10 mg PO QPM 08/12/18 08/12/18 Rizatriptan Benzoate [Maxalt] 10 mg PO PRN PRN 08/12/18 08/12/18 Tizanidine HCl [Zanaflex] 05/15/19 diphenhydrAMINE [Benadryl] 50 mg PO PRN 08/12/18 lisinopriL [Lisinopril] 10 mg PO DAILY 08/12/18 08/12/18 Midodrine [ProAmatine] 10 mg PO TID PRN #30 tablet 08/13/18 oxyCODONE [Roxicodone] 5 mg PO Q8H PRN #6 tablet 08/13/18 Amoxicillin 875 mg PO BID #14 tablet 08/16/20 - Allergies Allergies/Adverse Reactions: Allergies Allergy/AdvReac Type Severity Reaction Status Date / Time zolpidem [From Ambien] Allergy Unknown Verified 08/16/20 21:49 Sulfa (Sulfonamide AdvReac Intermediate Hives Verified 08/16/20 21:49 Antibiotics) - Social History Does the pt smoke?: No Smoking Status: Never smoker Does the pt drink ETOH?: No Does the pt have substance abuse?: No - Immunizations Immunizations are current?: Yes - POLST Patient has POLST: No POLST Status: Full Code PD ED PE NORMAL - Vitals Vital signs reviewed: Yes (tachy and hypertensive both mild ) - General General: Alert and oriented X 3, No acute distress, Well developed/nourished - HEENT HEENT: Atraumatic, PERRL, EOMI, Other (There appears to be tenderness specifically over #30 on the lower right side There is submandibular adenopathy on that side under the jaw and there is tenderness in the sublingual area without fluctuance.) - Neck Neck: Supple, no meningeal sign, No bony TTP - Respiratory Respiratory: No respiratory distress - Derm Derm: Normal color, Warm and dry, No rash - Extremities Extremities: No deformity, No edema - Neuro 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: 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, No motor deficit, No sensory deficit, Normal speech Eye Opening: Spontaneous Motor: Obeys Commands Verbal: Oriented GCS Score: 15 - Psych Psych: Normal mood, Normal affect Results - Vitals Vitals: Vital Signs - 24 hr 08/16/20 08/16/20 21:47 23:10 Temperature 36.6 C 36.6 C Heart Rate 102 H 91 Respiratory 17 18 Rate Blood Pressure 135/77 H 132/75 H O2 Saturation 100 100 Oxygen O2 Source Room air PD MEDICAL DECISION MAKING - ED course Complexity details: considered differential, d/w patient ED course: 44-year-old female with a history of Bradycardia associated with migraine has developed a tooth ache and appears to have evidence of a dental abscess. She is administered amoxicillin and she has pain medication at home. Departure - Departure Disposition: Home, Self Care Clinical Impression: Dental abscess Condition: Stable Instructions: ED Abscess Dental Follow-Up: Jane Harp ARNP [Primary Care Provider] - Prescriptions: Amoxicillin 875 mg PO BID #14 tablet Discharge Date/Time: 08/16/20 23:10
[2020-08-16] MEDS ORDERED: AMOXICILLIN 250 MG Prepack 6 PO ONE (23:07)
[2020-08-16 23:11] VITALS: BP 132/75
[2020-08-17] MEDS ORDERED: AMOXICILLIN 250 MG Prepack 6 PO SCH (06:00)
== END 2020-08-16 23:10 | disposition home or self-care (01) ==
LOC: ED 21:38
DX: K04.7 Periapical abscess without sinus (principal); I10 Essential (primary) hypertension
CPT/HCPCS: 99282; 99284

== ENCOUNTER 2021-03-27 21:38 | Emergency (ER) | payer OTHER ==
[2021-03-27 21:57] LABS: BASOPHILS # (AUTO) 0.1 10^3/uL (0.0-0.1); BASOPHILS % (AUTO) 0.8 %; EOSINOPHILS # (AUTO) 0.2 10^3/uL (0.0-0.7); HCT - HEMATOCRIT 34.9 % (37.0-47.0); HGB - HEMOGLOBIN 11.5 g/dL (12.0-16.0); LYMPHOCYTES % (AUTO) 18.6 %; MEAN CORPUSCULAR HEMOGLOBIN 30.3 pg (27.0-31.0); MEAN CORPUSCULAR VOLUME 91.8 fL (81.0-99.0); MEAN PLATELET VOLUME 9.8 fL (7.9-10.8); MONOCYTES # (AUTO) 0.9 10^3/uL (0.0-1.0); MONOCYTES % (AUTO) 8.6 %; NEUTROPHILS # (AUTO) 7.6 10^3/uL (1.5-6.6); NEUTROPHILS % (AUTO) 69.6 %; PLT - PLATELET COUNT 228 10^3/uL (130-450); RED CELL DISTRIBUTION WIDTH 14.3 % (12.0-15.0); WHITE BLOOD COUNT 10.9 x10^3/uL (4.8-10.8)
--- NOTE | 2021-03-27 22:06 | ED Physician Documentation ---
PD HPI CHEST PAIN - Stated complaint Stated Complaint: CHEST FLUTTERS/SOA - Chief complaint Chief Complaint: Cardiac - History obtained from History obtained from: Patient - Additional information Additional information: 45yF with pmh cardiac arrhythmia, bradycardia, migraines, multiple syncopal episodes, p/w chest fluttering and shortness of breath intermittently since 7am with galaxy watch telling her she was in afib. patient has no history of afib and on inspection of the watch there appear to be p waves on the rhythm strip. patient also c/o chest pressure radiating to upper back, unrelieved with oxycodone and lisinopril. endorses 10/07 frontal RAMIREZ on arrval to ED. aching, constant, nonradiating, c/w prior migraines. Review of Systems Ten Systems: 10 systems reviewed and negative Constitutional: denies: Fever, Chills Cardiac: reports: Chest pain / pressure, Palpitations Respiratory: reports: Dyspnea. denies: Cough GI: reports: Nausea. denies: Vomiting Musculoskeletal: denies: Neck pain Neurologic: reports: Headache. 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 : None HEENT: Other Psych: Depression Musculoskeletal: Other Derm: None - Past Surgical History Past Surgical History: Yes General: Cholecystectomy /LEGAL RECRUITER: section HEENT: Tonsil/Adenoidectomy - Present Medications Home Medications: Ambulatory Orders Medication Instructions Recorded Confirmed Acetaminophen 1,000 mg PO Q8H PRN 08/12/18 08/12/18 Chlorthalidone 12.5 mg PO DAILY 08/12/18 08/12/18 Ibuprofen 600 mg PO Q6H 08/12/18 08/12/18 Ketorolac Tromethamine 30 mg IM PRN PRN 08/12/18 08/12/18 Ondansetron [Ondansetron Odt] 8 mg PO PRN PRN 08/12/18 08/12/18 Oxycodone HCl 10 mg PO QPM 08/12/18 08/12/18 Rizatriptan Benzoate [Maxalt] 10 mg PO PRN PRN 08/12/18 08/12/18 Tizanidine HCl [Zanaflex] 08/12/18 diphenhydrAMINE [Benadryl] 50 mg PO PRN 08/12/18 lisinopriL [Lisinopril] 10 mg PO DAILY 08/12/18 08/12/18 Midodrine [ProAmatine] 10 mg PO TID PRN #30 tablet 08/13/18 oxyCODONE [Roxicodone] 5 mg PO Q8H PRN #6 tablet 08/13/18 Amoxicillin 875 mg PO BID #14 tablet 08/16/20 - Allergies Allergies/Adverse Reactions: Allergies Allergy/AdvReac Type Severity Reaction Status Date / Time zolpidem [From Ambien] Allergy Unknown Verified 03/27/21 21:47 Sulfa (Sulfonamide AdvReac Intermediate Hives Verified 03/27/21 21:47 Antibiotics) - Social History Does the pt smoke?: No Smoking Status: Never smoker Does the pt drink ETOH?: No Does the pt have substance abuse?: No - Immunizations Immunizations are current?: Yes - POLST Patient has POLST: No POLST Status: Full Code PD ED PE NORMAL - Vitals Vital signs reviewed: Yes - General General: Alert and oriented X 3, No acute distress, Well developed/nourished - HEENT HEENT: Atraumatic, PERRL, EOMI - Neck Neck: Supple, no meningeal sign - Cardiac Cardiac: RRR - Respiratory Respiratory: No respiratory distress, Clear bilaterally - Abdomen Abdomen: Non tender, Non distended - Derm Derm: Normal color, Warm and dry - Extremities Extremities: No deformity - Neuro Neuro: Alert and oriented X 3 - Psych Psych: Normal mood, Normal affect Results - Vitals Vitals: Vital Signs - 24 hr 03/27/21 03/27/21 03/28/21 21:45 23:47 00:29 Temperature 35.5 C L Heart Rate 111 H 83 87 Respiratory 20 19 14 Rate Blood Pressure 145/88 H 110/81 H 113/74 O2 Saturation 100 100 100 03/28/21 00:34 Temperature 36.0 C L Heart Rate 87 Respiratory 15 Rate Blood Pressure 113/74 O2 Saturation 100 Oxygen O2 Source Room air - EKG (time done) 2147 Rate: Rate (enter#) (102) Rhythm: Sinus tachycardia [place]: Normal Intervals: Normal IN QRS: Normal Ischemia: Other (old anterior ischemic changes seen on ekg 10/11/18) - Labs Labs: Laboratory Tests 03/27/21 03/27/21 03/27/21 21:51 21:51 21:51 WBC 10.9 H RBC 3.80 L Hgb 11.5 L Hct 34.9 L MCV 91.8 MCH 30.3 MCHC 33.0 RDW 14.3 Plt Count 228 MPV 9.8 Neut # (Auto) 7.6 H Lymph # (Auto) 2.0 [place] # (Auto) 0.9 Eos # (Auto) 0.2 Baso # (Auto) 0.1 Absolute Nucleated RBC 0.00 Nucleated RBC % 0.0 Sodium 138 Potassium 3.5 Chloride 103 Carbon Dioxide 25 Anion Gap 10.0 BUN 17 Creatinine 1.1 H Estimated GFR (MDRD) 53 L Glucose 103 H Calcium 9.5 Total Bilirubin 0.4 AST 15 ALT 12 Alkaline Phosphatase 41 L Troponin I High Sens 5.3 Total Protein 7.1 Albumin 4.5 Globulin 2.6 Albumin/Globulin Ratio 1.7 Lipase 43 03/27/21 23:38 WBC RBC Hgb Hct MCV MCH MCHC RDW Plt Count MPV Neut # (Auto) Lymph # (Auto) [place] # (Auto) Eos # (Auto) Baso # (Auto) Absolute Nucleated RBC Nucleated RBC % Sodium Potassium Chloride Carbon Dioxide Anion Gap BUN Creatinine Estimated GFR (MDRD) Glucose Calcium Total Bilirubin AST ALT Alkaline Phosphatase Troponin I High Sens 5.9 Total Protein Albumin Globulin Albumin/Globulin Ratio Lipase PD MEDICAL DECISION MAKING - ED course ED course: Headache improved from 7/10 on arrival to 4/10 s/p symptomatic care. no further cp or palpitations in the ED. NSR on ekg and on monitor. patient states she believes her cardiac symptoms stem from migraine headache. she previously was worked up for tachy-elham syndrome by green material value added assessor Dr. Chow at [facility] but states it's been years since she saw him. I advised her to f/u with Dr. Chow for further eval in addition to her PCP and neurologist. strict return precautions discussed. Departure - Departure Disposition: 01 Home, Self Care Clinical Impression: Chest pressure, Palpitations, Headache Condition: Good Instructions: ED Headache Migraine Comments: You were seen in the emergency department for evaluation of your heart and well as for treatment of migraine headache. Your EKG was unchanged from our old ekgs. Your labwork was normal except for some mild anemia (Hemoglobin 11.5 compared to previous 10/11/18). Two troponins (blood tests for your heart) were normal. You were not in atrial fibrillation while in the emergency department. Please follow up with your primary doctor for referral to cardiology. Please also follow up with your neurologist for your appointment in May. Discharge Date/Time: 03/28/21 00:38
[2021-03-27 22:12] LABS: ALBUMIN 4.5 g/dL (3.2-5.5); ALBUMIN/GLOBULIN RATIO 1.7 (1.0-2.2); BILIRUBIN,TOTAL 0.4 mg/dL (0.2-1.0); CALCIUM 9.5 mg/dL (8.5-10.3); CREATININE 1.1 mg/dL (0.4-1.0); POTASSIUM 3.5 mmol/L (3.5-5.0); TOTAL PROTEIN 7.1 g/dL (6.7-8.2)
--- NOTE | 2021-03-27 22:56 | XRAY Report ---
PROCEDURE: Chest 1 View X-Ray INDICATIONS: Chest Pain TECHNIQUE: One view of the chest was acquired. COMPARISON: 10/11/2018. FINDINGS: Surgical changes and devices: None. Lungs and pleura: No pleural effusions or pneumothorax. Lungs are clear. Mediastinum: Mediastinal contours appear normal. Heart size is normal. Bones and chest wall: No suspicious bony lesions. Overlying soft tissues appear unremarkable. IMPRESSION: 1. No acute cardiopulmonary disease. Reviewed by: Francisco Root MD on 03/27/2021 10:55 PM [facility] Approved by: Francisco Root MD on 03/27/2021 10:55 PM [facility] Station ID: [id number]
[2021-03-27] MEDS ORDERED: KETOROLAC 15 MG/ML VIAL IVP STA (23:07)
[2021-03-27] MEDS ORDERED: SODIUM CHLORIDE 0.9% 1,000 ML IV STA (23:08)
[2021-03-27] MEDS ORDERED: ONDANSETRON 4 MG/2 ML VIAL IVP STA (23:08)
[2021-03-27] MEDS ORDERED: ACETAMINOPHEN 325 MG TABLET PO STA (23:08)
[2021-03-27] MEDS ORDERED: diphenhydrAMINE INJ 50 MG/ML VIAL IVP STA (23:21)
[2021-03-28 00:30] VITALS: BP 113/74
== END 2021-03-28 00:38 | disposition home or self-care (01) ==
LOC: ED 21:38
DX: R07.89 Other chest pain (principal); R00.2 Palpitations; G43.909 Migraine, unspecified, not intractable, without status migrainosus; D64.9 Anemia, unspecified; I10 Essential (primary) hypertension; F32.A Depression, unspecified
CPT/HCPCS: 36415; 71045; 80053; 83690; 84484; 85025; 93005; 96374; 96375; 99284; A9270; J1200

== ENCOUNTER 2022-03-22 07:05 | Outpatient (CLI) | payer OTHER, BC ==
--- NOTE | 2022-03-22 09:04 | Ultrasound Report ---
PROCEDURE: Head or Neck Soft Tissue INDICATIONS: THYROID NODULE TECHNIQUE: Real-time scanning was performed of the thyroid gland, with image documentation. COMPARISON: MRI cervical spine 02/27/2022, CT chest angiogram 01/31/2018. FINDINGS: Right: Thyroid lobe measures 4.2 x 1.4 x 1.1 cm, and is homogeneous in echotexture. Left: Thyroid lobe measures 4.9 x 1.4 x 1.2 cm, and is homogenous in echotexture. Isthmus: 0.2 cm thick. Nodule number: One Location: Right superior mid Size: 0.6 x 0.5 x 0.3 cm. Composition: Solid Echogenicity: Isoechoic Shape: wider than tall. Margins: Smooth Echogenic foci: None Total points: 3 ACR TI-RADS category: TR 3, mildly suspicious Nodule number: Two Location: Right superior mid Size: 0.7 x 0.6 x 0.5 cm. Composition: Solid Echogenicity: Isoechoic Shape: wider than tall. Margins: Smooth Echogenic foci: None Total points: 3 ACR TI-RADS category: TR 3, mildly suspicious Nodule number: Three Location: Right inferior lateral Size: 0.8 x 0.7 x 0.5 cm. Composition: Cystic Echogenicity: Anechoic Shape: wider than tall. Margins: Smooth Echogenic foci: None Total points: 0 ACR TI-RADS category: TR 1, benign No enlarged cervical lymph nodes seen. IMPRESSION: A few subcentimeter thyroid nodules not meeting criteria for imaging follow-up. ACR TI-RADS definitions and recommendations: TI-RADS 1 (benign): 0 points. FNA not needed. TI-RADS 2 (not suspicious): 2 points. FNA not needed. TI-RADS 3 (mildly suspicious): 3 points. "FNA if 2.5 cm or larger, follow up if 1.5 cm or larger (at 1, 3, and 5 years). TI-RADS 4 (moderately suspicious): 4-6 points. "FNA if 1.5 cm or larger, follow up if 1 cm or larger (at 1, 2, 3, and 5 years). TI-RADS 5 (highly suspicious): 7 points or more. "FNA if 1 cm or larger, follow up if 0.5 cm or larger (every year for 5 years). Reviewed by: Kory Alcaraz MD on 03/22/2022 9:03 AM PST Approved by: Kory Alcaraz MD on 03/22/2022 9:03 AM PST Station ID: [id number]
== END 2022-03-22 07:06 | disposition home or self-care (01) ==
LOC: DI 07:05
PROVIDERS: ATTEND Registered Nurse
DX: E04.2 Nontoxic multinodular goiter (principal)

== ENCOUNTER 2022-03-29 07:15 | Outpatient (CLI) | payer OTHER, BC ==
[2022-03-29 14:21] LABS: BASOPHILS # (AUTO) 0.1 10^3/uL (0.0-0.1); BASOPHILS % (AUTO) 1.8 %; EOSINOPHILS # (AUTO) 0.2 10^3/uL (0.0-0.7); EOSINOPHILS % (AUTO) 3.8 %; HCT - HEMATOCRIT 41.7 % (37.0-47.0); HGB - HEMOGLOBIN 13.3 g/dL (12.0-16.0); LYMPHOCYTES # (AUTO) 2.1 10^3/uL (1.5-3.5); LYMPHOCYTES % (AUTO) 34.6 %; MEAN CORPUSCULAR HEMOGLOBIN 29.4 pg (27.0-31.0); MEAN CORPUSCULAR HGB CONC 31.9 g/dL (32.0-36.0); MEAN CORPUSCULAR VOLUME 92.1 fL (81.0-99.0); MONOCYTES # (AUTO) 0.8 10^3/uL (0.0-1.0); NEUTROPHILS # (AUTO) 2.8 10^3/uL (1.5-6.6); NEUTROPHILS % (AUTO) 46.6 %; PLT - PLATELET COUNT 234 10^3/uL (130-450); RED BLOOD COUNT 4.53 10^6/uL (4.20-5.40); RED CELL DISTRIBUTION WIDTH 14.9 % (12.0-15.0)
[2022-03-29 14:53] LABS: ALBUMIN 4.6 g/dL (3.2-5.5); ALBUMIN/GLOBULIN RATIO 1.6 (1.0-2.2); ALKALINE PHOSPHATASE 72 IU/L (42-121); ALT ALANINE AMINOTRANSFERASE 87 IU/L (10-60); AST ASPARTATE AMINOTRANSFERASE 64 IU/L (10-42); BILIRUBIN,TOTAL 0.3 mg/dL (0.2-1.0); BUN - BLOOD UREA NITROGEN 20 mg/dL (6-20); CALCIUM 9.5 mg/dL (8.5-10.3); CARBON DIOXIDE - CO2 30 mmol/L (21-32); CHLORIDE 101 mmol/L (101-111); CHOL/HDL RATIO 2.5 (<4.4); CHOLESTEROL 193 mg/dL; GFR - MDRD 59 (>89); GLUCOSE 91 mg/dL (70-100); HDL CHOLESTEROL 77 mg/dL; LDL CHOLESTEROL,CALCULATED 99 mg/dL; LDL/HDL RATIO 1.3 (<4.4); POTASSIUM 4.3 mmol/L (3.5-5.0); SODIUM 137 mmol/L (135-145); TOTAL PROTEIN 7.4 g/dL (6.7-8.2); TRIGLYCERIDES 83 mg/dL; VLDL CHOLESTEROL 17 mg/dL
[2022-03-29 15:05] LABS: THYROID STIMULATING HORMONE 0.49 uIU/mL (0.34-5.60)
== END 2022-03-29 07:16 | disposition home or self-care (01) ==
LOC: LAB.S 07:15
PROVIDERS: ATTEND Registered Nurse
DX: I10 Essential (primary) hypertension (principal); Z13.220 Encounter for screening for lipoid disorders; E04.2 Nontoxic multinodular goiter
CPT/HCPCS: 36415; 80053; 80061; 83721; 84443; 85025

== ENCOUNTER 2022-04-17 13:11 | Outpatient (CLI) | payer OTHER, BC ==
[2022-04-19 06:10] LABS: HCV AB <0.1 s/co ratio (0.0-0.9)
== END 2022-04-17 13:12 | disposition home or self-care (01) ==
LOC: LAB.S 13:11
PROVIDERS: ATTEND Registered Nurse
DX: R74.8 Abnormal levels of other serum enzymes (principal)
CPT/HCPCS: 36415; 81599; 82306; 83970; 86015; 86803

== ENCOUNTER 2022-06-12 08:00 | Outpatient (CLI) | payer BC, OTHER ==
[2022-06-12 20:55] LABS: THYROID STIMULATING HORMONE 0.82 uIU/mL (0.34-5.60)
[2022-06-13 15:41] LABS: T4 (THYROXINE) 5.33 ug/dL (6.09-12.23)
== END 2022-06-12 23:59 | disposition home or self-care (01) ==
LOC: LAB.S 08:00
PROVIDERS: ATTEND Physician Assistant Medical
DX: E04.2 Nontoxic multinodular goiter (principal); F41.9 Anxiety disorder, unspecified
CPT/HCPCS: 36415; 84436; 84443; 84480

== ENCOUNTER 2023-03-19 14:42 | Outpatient (CLI) | payer BC, OTHER ==
--- NOTE | 2023-03-20 12:09 | Ultrasound Report ---
PROCEDURE: Head or Neck Soft Tissue INDICATIONS: MULTIPLE THYROID NODULES TECHNIQUE: Real-time scanning was performed of the thyroid gland, with image documentation. COMPARISON: None FINDINGS: Right: Thyroid lobe measures 4.6 by 1.3 x 1.0 cm, and is homogeneous in echotexture. Left: Thyroid lobe measures 4.9 x 1.2 x 1 1 cm, and is homogenous in echotexture. Isthmus: 0.3 cm thick. Nodule number: One Location: Right superior mid Size: 0.4 x 0.5 x 0.4 cm; previously 0.6 x 0.3 x 0.5 cm. Composition: Solid (2 points). Echogenicity: Hypoechoic (2 points). Shape: wider than tall (0 points). Margins: Smooth (0 points). Echogenic foci: None (0 points). Total points: 4 ACR TI-RADS category: 4 Nodule number: Two Location: Right superior mid Size: 0.4 x 0.3 x 0.4 cm; previously 0.7 x 0.6 x 0.6 cm. Composition: Solid (2 points). Echogenicity: Isoechoic (1 point). Shape: wider than tall (0 points). Margins: Smooth (0 points). Echogenic foci: None (0 points). Total points: 3 ACR TI-RADS category: 3 Nodule number: Three Location: Right mid inferior lateral Size: 0.6 x 0.8 x 0.6 cm; previously 0.8 x 0.5 x 0.7 cm. Composition: Cystic / almost completely cystic (0 points). Echogenicity: Anechoic (0 points). Shape: wider than tall (0 points). Margins: Smooth (0 points). Echogenic foci: None (0 points). Total points: 0 ACR TI-RADS category: 1 Nodule number: Four Location: Right inferior lateral Size: 0.6 x 0.7 x 0.7 cm; previously 0.7 x 0.6 x 0.6 cm. Composition: Cystic / almost completely cystic (0 points). Echogenicity: Anechoic (0 points). Shape: wider than tall (0 points). Margins: Smooth (0 points). Echogenic foci: None (0 points). Total points: 0 ACR TI-RADS category: 1 IMPRESSION: Small thyroid nodules are present bilaterally. Please see enclosed follow-up recommendat ion. ACR TI-RADS definitions and recommendations: TI-RADS 1 (benign): 0 points. FNA not needed. TI-RADS 2 (not suspicious): 2 points. FNA not needed. TI-RADS 3 (mildly suspicious): 3 points. "FNA if 2.5 cm or larger, follow up if 1.5 cm or larger (at 1, 3, and 5 years). TI-RADS 4 (moderately suspicious): 4-6 points. "FNA if 1.5 cm or larger, follow up if 1 cm or larger (at 1, 2, 3, and 5 years). TI-RADS 5 (highly suspicious): 7 points or more. "FNA if 1 cm or larger, follow up if 0.5 cm or larger (every year for 5 years). Reviewed by: Rosibel William MD on 03/20/2023 12:07 PM PST Approved by: Rosibel William MD on 03/20/2023 12:07 PM PST Station ID: [id number]
== END 2023-03-19 14:43 | disposition home or self-care (01) ==
LOC: DI 14:42
PROVIDERS: ATTEND Registered Nurse
DX: E04.2 Nontoxic multinodular goiter (principal)

== ENCOUNTER 2023-05-29 07:45 | Outpatient (CLI) | payer OTHER ==
[2023-05-29 15:20] LABS: BASOPHILS # (AUTO) 0.1 10^3/uL (0.0-0.1); BASOPHILS % (AUTO) 1.2 %; EOSINOPHILS # (AUTO) 0.2 10^3/uL (0.0-0.7); EOSINOPHILS % (AUTO) 2.8 %; HCT - HEMATOCRIT 33.9 % (37.0-47.0); HGB - HEMOGLOBIN 10.6 g/dL (12.0-16.0); LYMPHOCYTES # (AUTO) 1.3 10^3/uL (1.5-3.5); LYMPHOCYTES % (AUTO) 22.8 %; MEAN CORPUSCULAR HEMOGLOBIN 29.2 pg (27.0-31.0); MEAN CORPUSCULAR HGB CONC 31.3 g/dL (32.0-36.0); MEAN CORPUSCULAR VOLUME 93.4 fL (81.0-99.0); MEAN PLATELET VOLUME 10.6 fL (7.9-10.8); MONOCYTES # (AUTO) 0.5 10^3/uL (0.0-1.0); MONOCYTES % (AUTO) 9.3 %; NEUTROPHILS # (AUTO) 3.6 10^3/uL (1.5-6.6); NEUTROPHILS % (AUTO) 63.5 %; PLT - PLATELET COUNT 184 10^3/uL (130-450); RED BLOOD COUNT 3.63 10^6/uL (4.20-5.40); RED CELL DISTRIBUTION WIDTH 14.6 % (12.0-15.0); WHITE BLOOD COUNT 5.7 x10^3/uL (4.8-10.8)
[2023-05-29 16:03] LABS: THYROID STIMULATING HORMONE 0.65 uIU/mL (0.34-5.60)
[2023-05-29 16:05] LABS: ALBUMIN 4.7 g/dL (3.2-5.5); ALBUMIN/GLOBULIN RATIO 2.1 (1.0-2.2); ALKALINE PHOSPHATASE 52 IU/L (42-121); ALT ALANINE AMINOTRANSFERASE 10 IU/L (10-60); AST ASPARTATE AMINOTRANSFERASE 16 IU/L (10-42); BILIRUBIN,TOTAL 0.4 mg/dL (0.2-1.0); BUN - BLOOD UREA NITROGEN 20 mg/dL (6-20); CARBON DIOXIDE - CO2 30 mmol/L (21-32); CHLORIDE 107 mmol/L (101-111); CHOL/HDL RATIO 2.2 (<4.4); CHOLESTEROL 152 mg/dL; CREATININE 1.2 mg/dL (0.6-1.3); GFR - MDRD 48 (>89); GLUCOSE 90 mg/dL (74-104); HDL CHOLESTEROL 68 mg/dL; LDL CHOLESTEROL,CALCULATED 69 mg/dL; POTASSIUM 4.2 mmol/L (3.5-4.5); SODIUM 142 mmol/L (135-145); TOTAL PROTEIN 6.9 g/dL (6.4-8.9); TRIGLYCERIDES 75 mg/dL (48-352); VLDL CHOLESTEROL 15 mg/dL
== END 2023-05-29 07:46 | disposition home or self-care (01) ==
LOC: LAB.S 07:45
PROVIDERS: ATTEND Registered Nurse
DX: I10 Essential (primary) hypertension (principal); Z13.220 Encounter for screening for lipoid disorders; E04.2 Nontoxic multinodular goiter
CPT/HCPCS: 36415; 80053; 80061; 83721; 84443; 85025

== ENCOUNTER 2023-07-09 21:46 | Emergency (ER) | payer OTHER ==
[2023-07-09 22:16] LABS: BASOPHILS % (AUTO) 0.3 %; EOSINOPHILS % (AUTO) 0.2 %; HCT - HEMATOCRIT 40.3 % (37.0-47.0); HGB - HEMOGLOBIN 13.8 g/dL (12.0-16.0); LYMPHOCYTES # (AUTO) 0.7 10^3/uL (1.5-3.5); LYMPHOCYTES % (AUTO) 5.5 %; MEAN CORPUSCULAR HEMOGLOBIN 29.3 pg (27.0-31.0); MEAN CORPUSCULAR HGB CONC 34.2 g/dL (32.0-36.0); MEAN CORPUSCULAR VOLUME 85.6 fL (81.0-99.0); MEAN PLATELET VOLUME 10.8 fL (7.9-10.8); MONOCYTES # (AUTO) 0.4 10^3/uL (0.0-1.0); MONOCYTES % (AUTO) 3.4 %; NEUTROPHILS # (AUTO) 10.8 10^3/uL (1.5-6.6); NEUTROPHILS % (AUTO) 90.3 %; PLT - PLATELET COUNT 253 10^3/uL (130-450); RED BLOOD COUNT 4.71 10^6/uL (4.20-5.40); RED CELL DISTRIBUTION WIDTH 13.2 % (12.0-15.0); WHITE BLOOD COUNT 11.9 x10^3/uL (4.8-10.8)
--- NOTE | 2023-07-09 23:05 | ED Physician Documentation ---
PD HPI CHEST PAIN - Stated complaint Stated Complaint: ABD PX N/V - Chief complaint Chief Complaint: Abd Pain - History obtained from History obtained from: Patient - Additional information Additional information: HPI from patient. Patient developed a RAMIREZ c/w previous migraine headache approximately 3 days ago, waxing and waning but resolved today after taking IM toradol which she has at home. However, shortly after the RAMIREZ resolved, she developed nausea, vomiting, and severe anterior low mid-line chest pain. The pain does not radiate. There are no exacerbating nor ameliorating factors. She has had similar n/v and chest pain in the past which, per patient, are possibly tied in with/result of her migraine headaches (she says her neurologist has said this is a possible explanation for her GI symptoms when they are temporally related to the onset/resolution of her migraines). She denies fever, denies blood in vomitus. Review of Systems Constitutional: reports: Sweats. denies: Fever, Chills Cardiac: reports: Chest pain / pressure. denies: Palpitations, Pedal edema, Calf pain Respiratory: denies: Dyspnea, Cough GI: reports: Abdominal Pain, Nausea, Vomiting. denies: Abdominal Swelling, Constipation, Diarrhea : denies: Dysuria, Frequency, Now EGA Musculoskeletal: denies: Neck pain, Back pain, Extremity swelling Neurologic: denies: Generalized weakness, Focal weakness, Numbness, Headache PD PAST MEDICAL HISTORY - Past Medical History Past Medical History: Yes Cardiovascular: Hypertension, Murmur, Arrhythmia Respiratory: None Neuro: Migraines, Other Endocrine/Autoimmune: None GI: None [employer] DIRECTOR: None : None HEENT: Other Psych: Depression Musculoskeletal: Other Derm: None - Past Surgical History Past Surgical History: Yes General: Cholecystectomy /[employer] DIRECTOR: section HEENT: Tonsil/Adenoidectomy - Present Medications Home Medications: Ambulatory Orders Medication Instructions Recorded Confirmed Acetaminophen 1,000 mg PO Q8H PRN 08/12/18 08/12/18 Chlorthalidone 12.5 mg PO DAILY 08/12/18 08/12/18 Ibuprofen 600 mg PO Q6H 08/12/18 08/12/18 Ketorolac Tromethamine 30 mg IM PRN PRN 08/12/18 08/12/18 Ondansetron [Ondansetron Odt] 8 mg PO PRN PRN 08/12/18 08/12/18 Oxycodone HCl 10 mg PO QPM 08/12/18 08/12/18 Rizatriptan Benzoate [Maxalt] 10 mg PO PRN PRN 08/12/18 08/12/18 Tizanidine HCl [Zanaflex] 08/12/18 diphenhydrAMINE [Benadryl] 50 mg PO PRN 08/12/18 lisinopriL [Lisinopril] 10 mg PO DAILY 08/12/18 08/12/18 Midodrine [ProAmatine] 10 mg PO TID PRN #30 tablet 08/13/18 oxyCODONE [Roxicodone] 5 mg PO Q8H PRN #6 tablet 08/13/18 Amoxicillin 875 mg PO BID #14 tablet 08/16/20 Promethazine [Phenergan] 25 mg PO Q6H PRN #10 tab 07/10/23 oxyCODONE [Roxicodone] 5 - 10 mg PO Q6H PRN #14 tablet 07/10/23 - Allergies Allergies/Adverse Reactions: Allergies Allergy/AdvReac Type Severity Reaction Status Date / Time zolpidem [From Ambien] Allergy Unknown Verified 07/09/23 23:38 Sulfa (Sulfonamide AdvReac Intermediate Hives Verified 07/09/23 23:38 Antibiotics) - Social History Does the pt smoke?: No Smoking Status: Never smoker Does the pt drink ETOH?: No Does the pt have substance abuse?: No - Immunizations Immunizations are current?: Yes - POLST Patient has POLST: No POLST Status: Full Code PD ED PE NORMAL - Vitals Vital signs reviewed: Yes - General General: Alert and oriented X 3, Well developed/nourished, Other (appers to be in moderate-severe painful distress, lying on her side on stretcher curled up with knees tucked towards abdomen) - HEENT HEENT: Moist mucous membranes - Neck Neck: Supple, no meningeal sign - Cardiac Cardiac: RRR, No murmur - Respiratory Respiratory: No respiratory distress, Clear bilaterally - Abdomen Abdomen: Normal bowel sounds, Soft, Non tender, Non distended - Back Back: No CVA TTP - Derm Derm: Normal color, Warm and dry - Extremities Extremities: No edema Results - Vitals Vitals: Vital Signs - 24 hr 07/09/23 07/10/23 07/10/23 21:50 00:00 00:42 Temperature 36.8 C 37.9 C Heart Rate 84 74 78 Respiratory 20 18 20 Rate Blood Pressure 112/98 H 122/92 H 122/67 O2 Saturation 98 100 07/10/23 07/10/23 02:02 03:08 Temperature 36.6 C 36.9 C Heart Rate 73 80 Respiratory 16 18 Rate Blood Pressure 141/78 H 121/70 O2 Saturation 100 100 Oxygen O2 Source Room air - EKG (time done) No standard instances EKG releavant findings:: EKG personally interpreted by author of this note. Relevant findings are: Rate: Rate (enter#) (72) Rhythm: NSR [place]: Normal Intervals: Normal AR QRS: Normal Ischemia: Normal ST segments Other comments: Other comments (significant artifact precludes some interpretation but rate as above, axis as above, and narrow complex with P waves and regular AR interval in some V leads (fluttering baseline in inferior leads is artifact based on patient's movements during EKG)) - Labs Labs: Laboratory Tests 07/09/23 07/09/23 07/09/23 22:11 22:11 22:11 WBC 11.9 H RBC 4.71 Hgb 13.8 Hct 40.3 MCV 85.6 MCH 29.3 MCHC 34.2 RDW 13.2 Plt Count 253 MPV 10.8 Neut # (Auto) 10.8 H Lymph # (Auto) 0.7 L [place] # (Auto) 0.4 Eos # (Auto) 0.0 Baso # (Auto) 0.0 Absolute Nucleated RBC 0.00 Nucleated RBC % 0.0 D-Dimer Sodium 137 Potassium 3.5 Chloride 99 L Carbon Dioxide 21 Anion Gap 17.0 H BUN 29 H Creatinine 1.3 Estimated GFR (MDRD) 44 L Glucose 125 H Calcium 10.9 H Total Bilirubin 0.8 AST 22 ALT 22 Alkaline Phosphatase 73 Troponin I High Sens 6.1 Total Protein 8.0 Albumin 5.2 Globulin 2.8 Albumin/Globulin Ratio 1.9 Lipase 185 H 07/10/23 01:08 WBC RBC Hgb Hct MCV MCH MCHC RDW Plt Count MPV Neut # (Auto) Lymph # (Auto) [place] # (Auto) Eos # (Auto) Baso # (Auto) Absolute Nucleated RBC Nucleated RBC % D-Dimer < 200.0 L Sodium Potassium Chloride Carbon Dioxide Anion Gap BUN Creatinine Estimated GFR (MDRD) Glucose Calcium Total Bilirubin AST ALT Alkaline Phosphatase Troponin I High Sens Total Protein Albumin Globulin Albumin/Globulin Ratio Lipase - Rads (name of study) chest xray Relevant Findings:: Prelim report reviewed, See rad report PD Medical Decision Making - ED course Complexity details: reviewed results, re-evaluated patient, considered differential, d/w patient ED course: I note previous visits to this ED for similar c/o including the n/v and chest pain; on some of those visits she had upper abdominal component and thus had CT A/P, others resulted in CTA chest. I do not see particularly concerning nor diagnostic findings on these previous studies. Tonight's blood tests are without remarakble or diagnostic findings. Minimal leukocytosis on cbc (11.9), mildly elevated bun (29) with 1.3 creatinine. Normal LFTs and normal d-dimer. Most notable is 185 lipase, which is higher than previous results but not by significant margin nor is the lipase value itself particularly elevated. Furthermore, she is not tender in the epigastrium , both initially as well as on multiple reexams. Thus, pancreatitis seems unlikely etiology. Noraml hs-cTn. She is given 1 liter IV NS, droperidol IV, zofran IV, dilaudid 1mg IV x 2 doses, and 25mg IV phenergan. Eventually, these interventions resulted in resolution of her symptoms. On final reevaluation prior to d/c, she is AAOx3, in NAD, and reports feeling ready for d/c with near-resolution of symptoms. Results d/w patient, return precautions reviewed. Etiology of symptoms is not apparent at this time. Departure - Departure Disposition: 01 Home, Self Care Clinical Impression: Chest pain Qualifiers: Chest pain type: unspecified Qualified Code(s): R07.9 - Chest pain, unspecified Condition: Good Instructions: ED Chest Pain Atypical Unkn Cause Prescriptions: Promethazine [Phenergan] 25 mg PO Q6H PRN #10 tab PRN Reason: Nausea / Vomiting oxyCODONE [Roxicodone] 5 - 10 mg PO Q6H PRN #14 tablet PRN Reason: Pain >8 Comments: There were no concerning or diagnostic findings of tonight's tests including the chest xray, EKG, and blood tests. Your cardiac enzyme (troponin) was normal. You had normal liver function tests. As we discussed, you had a mildly elevated lipase; this is a nonspecific finding. In some cases, an elevated lipase can indicate inflammation of the pancreas (pancreatitis). However, this typically causes severe pain and distinct tenderness in the upper abdomen. Although you are having significant pain in the lower chest, your abdominal exam did not reveal any tenderness and thus I think pancreatitis is a highly unlikely diagnosis. Your kidney tests were mildly elevated in a pattern that is most consistent with dehydration rather than a kidney problem. I have electronically submitted prescriptions for oxycodone (narcotic/opiate pain medication) and Phenergan (antinausea medication) to the [facility] pharmacy in [place]. I am prescribing a short course of narcotic pain medication for you. These are potentially dangerous and addictive medications that should be used carefully. These medications may constipate you. Take an epso-tkp-lsriorn stool softener (docusate) twice daily with plenty of water while taking these medications. If you go 24 hours without a bowel movement, take adau-fvf-jwykijy miralax, per package instructions. Do not drink or drive while taking these medications. If you received narcotic or sedating medications while in the emergency department, do not drive for 24 hours. Store this medication in a safe, secure place and out of reach of children. It is a violation of federal law to give or sell this medication to another person or to use in a manner other than prescribed. The ED will not refill narcotic prescriptions, including prescriptions lost or stolen. To dispose of unwanted medications: 1. [facility] at [address] in [place] has a medication drop box. They accept prescription medications (in pill form) Friday through Friday 9:00 a.m. to 5:00 p.m. 2. [facility] [employer] accepts prescription medications (in pill form only) for disposal year round. Call for more information. 3. Contact the [facility] for the next [facility] sponsored prescription drug collection event. , [phone], or [phone]; Discharge Date/Time: 07/10/23 03:08
[2023-07-09 23:11] LABS: ALBUMIN 5.2 g/dL (3.2-5.5); ALBUMIN/GLOBULIN RATIO 1.9 (1.0-2.2); BILIRUBIN,TOTAL 0.8 mg/dL (0.2-1.0); CALCIUM 10.9 mg/dL (8.5-10.3); CREATININE 1.3 mg/dL (0.6-1.3); POTASSIUM 3.5 mmol/L (3.5-4.5)
[2023-07-09] MEDS: ONDANSETRON ODT 4 MG TABLET TL STA (23:14)
[2023-07-09] MEDS: DROPERIDOL 5 MG/2 ML VIAL IVP STA (23:29)
[2023-07-09] MEDS: HYDROmorphone 1 MG/ML CARPUJECT IVP STA (23:30)
--- NOTE | 2023-07-10 00:22 | XRAY Report ---
PROCEDURE: Chest 1V INDICATIONS: chest pain TECHNIQUE: One view of the chest was acquired. COMPARISON: Chest x-ray, 03/19/2021. FINDINGS: Surgical changes and devices: None. Lungs and pleura: No pleural effusions or pneumothorax. Lungs are clear. Mediastinum: Mediastinal contours appear normal. Heart size is normal. Bones and chest wall: No suspicious bony lesions. Overlying soft tissues appear unremarkable. IMPRESSION: No acute cardiopulmonary process. Reviewed by: Rosibel William MD on 07/10/2023 12:20 AM PDT Approved by: Rosibel William MD on 07/10/2023 12:20 AM PDT Station ID: [id number]
[2023-07-10 00:52] VITALS: O2SAT 100
[2023-07-10] MEDS: SODIUM CHLORIDE 0.9% 1,000 ML IV STA (01:00)
[2023-07-10] MEDS ORDERED: PROMETHAZINE 25 MG/1 ML VIAL ONE (01:05)
[2023-07-10] MEDS: HYDROmorphone 1 MG/ML CARPUJECT IVP STA (01:24)
[2023-07-10] MEDS: PROMETHAZINE INJ 25 MG in SODIUM CHLORIDE 0.9% 50 ML IV STA (01:25)
[2023-07-10 03:11] VITALS: BP 121/70
== END 2023-07-10 03:08 | disposition home or self-care (01) ==
LOC: ED 21:46
DX: R07.9 Chest pain, unspecified (principal); I10 Essential (primary) hypertension; Z79.899 Other long term (current) drug therapy
CPT/HCPCS: 36415; 71045; 80053; 83690; 84484; 85025; 85379; 93005; 96365; 96375; 96376; 99284; 99285; J1170; Q0162

== ENCOUNTER 2023-07-28 10:58 | Day surgery (SDC) | payer OTHER ==
[2023-07-28] MEDS: LACTATED RINGERS 1,000 ML IV ONE ×2 (11:24→12:30)
--- NOTE | 2023-07-28 11:50 | ANESTHESIA ---
Pre-Anesthesia VS, & Labs Vital Signs: Temp Pulse Resp BP Pulse Ox O2 Flow Rate 36.2 C L 99 19 120/83 H 100 07/28/23 11:14 07/28/23 11:14 07/28/23 11:14 07/28/23 11:14 07/28/23 11:14 Height: 5 ft 3 in Weight (kg): 54.7 kg Body Mass Index: 21.3 BMI Classification: Normal Home Medications and Allergies Home Medications: Ambulatory Orders Rimegepant Sulfate [Nurtec Odt] 1 tab PO DAILY 07/25/23 Acetaminophen 1,000 mg PO Q8H PRN 08/12/18 Chlorthalidone 12.5 mg PO DAILY 08/12/18 Ibuprofen 600 mg PO Q6H 08/12/18 Ketorolac Tromethamine 30 mg IM PRN PRN 08/12/18 Ondansetron [Ondansetron Odt] 8 mg PO PRN PRN 08/12/18 Tizanidine HCl [Zanaflex] 1 cap PO PRN PRN 08/12/18 diphenhydrAMINE [Benadryl] 50 mg PO PRN 08/12/18 lisinopriL [Lisinopril] 20 mg PO DAILY 08/12/18 Rimegepant Sulfate [Nurtec Odt] 1 tab PO DAILY 07/25/23 Allergies/Adverse Reactions: Allergies Allergy/AdvReac Type Severity Reaction Status Date / Time Sulfa (Sulfonamide Allergy Intermediate Anaphylaxis Verified 07/25/23 13:34 Antibiotics) zolpidem [From Ambien] AdvReac Severe Unknown Verified 07/25/23 13:34 [id number] AdvReac Rash Verified 07/25/23 13:35 [From Emgality Pen] Anes History & Medical History - Medical History Cardiovascular: reports: Hypertension, Murmur, Arrhythmia Pulmonary: reports: None Gastrointestinal: reports: None Urinary: reports: None Neuro: reports: Migraines, Other Musculoskeletal: reports: Other Endocrine/Autoimmune: reports: None Blood Disorders: reports: None Skin: reports: None Smoking Status: Never smoker - Surgical History General: reports: Cholecystectomy Eyes Ears Nose Throat (EENT): reports: Tonsil/Adenoidectomy Gynecologic: reports: section
--- NOTE | 2023-07-28 11:56 | ANESTHESIA ---
Pre-Anesthesia VS, & Labs - Diagnosis screening - Procedure colonoscopy Vital Signs: Temp Pulse Resp BP Pulse Ox O2 Flow Rate 36.2 C L 99 19 120/83 H 100 07/28/23 11:14 07/28/23 11:14 07/28/23 11:14 07/28/23 11:14 07/28/23 11:14 Height: 5 ft 3 in Weight (kg): 54.7 kg Body Mass Index: 21.3 BMI Classification: Normal - NPO >8 hours - Is Patient ?: No Comments:: pt post-menopausal Home Medications and Allergies Home Medications: Ambulatory Orders Rimegepant Sulfate [Nurtec Odt] 1 tab PO DAILY 07/25/23 Acetaminophen 1,000 mg PO Q8H PRN 08/12/18 Chlorthalidone 12.5 mg PO DAILY 08/12/18 Ibuprofen 600 mg PO Q6H 08/12/18 Ketorolac Tromethamine 30 mg IM PRN PRN 08/12/18 Ondansetron [Ondansetron Odt] 8 mg PO PRN PRN 08/12/18 Tizanidine HCl [Zanaflex] 1 cap PO PRN PRN 08/12/18 diphenhydrAMINE [Benadryl] 50 mg PO PRN 08/12/18 lisinopriL [Lisinopril] 20 mg PO DAILY 08/12/18 Rimegepant Sulfate [Nurtec Odt] 1 tab PO DAILY 07/25/23 Allergies/Adverse Reactions: Allergies Allergy/AdvReac Type Severity Reaction Status Date / Time Sulfa (Sulfonamide Allergy Intermediate Anaphylaxis Verified 07/25/23 13:34 Antibiotics) zolpidem [From Ambien] AdvReac Severe Unknown Verified 07/25/23 13:34 [id number] AdvReac Rash Verified 07/25/23 13:35 [From Emgality Pen] Anes History & Medical History - Anesthetic History Anesthesia Complications: reports: No previous complications Family history of Anesthesia Complications: Denies Family history of Malignant Hyperthermia: Denies - Medical History Cardiovascular: reports: Hypertension, Murmur, Arrhythmia Pulmonary: reports: None Gastrointestinal: reports: None Urinary: reports: None Neuro: reports: Migraines, Other Musculoskeletal: reports: Other Endocrine/Autoimmune: reports: None Blood Disorders: reports: None Skin: reports: None Smoking Status: Never smoker - Surgical History General: reports: Cholecystectomy Eyes Ears Nose Throat (EENT): reports: Tonsil/Adenoidectomy Gynecologic: reports: section Exam General: Alert, Oriented x3, Cooperative Dental: WNL Mouth Openin Fingerbreadth Neck Mobility: Normal Mallampati classification: II Thyromental Distance: 4-6 cm Respiratory: Lungs clear Cardiovascular: Regular rate Plan Anesthesia Type: General, Total IV Consent for Procedure(s) Verified and Reviewed: Yes Code Status: Attempt Resuscitation ASA classification: 2-Mild systemic disease Is this case an emergency?: No
[2023-07-28] MEDS ORDERED: MIDAZOLAM 2 MG/2 ML VIAL ONE (11:58)
[2023-07-28] MEDS ORDERED: PROPOFOL 500 MG/50 ML 500 MG/50 ML VIAL ONE (12:06)
[2023-07-28] MEDS: ONDANSETRON 4 MG/2 ML VIAL ONE (13:06)
--- NOTE | 2023-07-28 13:08 | ANESTHESIA POST OP EVALUATION ---
Anesthesia Post Eval - Post Anesthesia Eval Vitals: Last Vital Signs Temp 36.4 C L 07/28/23 12:25 Pulse 78 07/28/23 12:45 Resp 16 07/28/23 12:45 BP 121/87 H 07/28/23 12:45 Pulse Ox 100 07/28/23 12:45 O2 Flow Rate CV Function Including HR & BP: Stable Pain Control: Satisfactory Nausea & Vomiting: Negative Mental Status: Baseline Respiratory Status: Airway Patent Hydration Status: Satisfactory Anesthesia Complications: None
[2023-07-28 13:15] VITALS: BP 123/75; O2SAT 99
== END 2023-07-28 10:59 | disposition home or self-care (01) ==
LOC: SDS 10:58
PROVIDERS: ATTEND Surgery
DX: Z12.11 Encounter for screening for malignant neoplasm of colon (principal); K64.1 Second degree hemorrhoids; I10 Essential (primary) hypertension
CPT/HCPCS: 45378; J7120

== ENCOUNTER 2023-08-29 21:02 | Emergency (ER) | payer OTHER ==
--- NOTE | 2023-08-29 21:33 | ED Physician Documentation ---
PD HPI CHEST PAIN - Stated complaint Stated Complaint: CHEST PX/VOMIT/RAMIREZ - History obtained from History obtained from: Patient - Additional information Additional information: She has a history of non-STEMI but with negative workup, and also has a bradycardia not needing intervention. No known history of coronary disease. She has migraines for which she takes Nurtec and has had her usual migraine for the last 3 days that has not been responsive to her usual home medications which include Nurtec, Benadryl, Zofran, and injectable Toradol. She has been vomiting and today after vomiting developed severe central nonradiating chest pain. No shortness of breath. The pain in her chest hurts far more than her headache. PD PAST MEDICAL HISTORY - Past Medical History Cardiovascular: Hypertension, Murmur, Arrhythmia Respiratory: None Neuro: Migraines, Other Endocrine/Autoimmune: None GI: None YEAST STACKER: None : None HEENT: Other Psych: Depression Musculoskeletal: Other Derm: None - Past Surgical History Past Surgical History: Yes General: Cholecystectomy /YEAST STACKER: section HEENT: Tonsil/Adenoidectomy - Present Medications Home Medications: Ambulatory Orders Medication Instructions Recorded Confirmed Chlorthalidone 12.5 mg PO DAILY 08/12/18 08/29/23 Ibuprofen 600 mg PO Q6H 08/12/18 08/29/23 Ketorolac Tromethamine 30 mg IM PRN PRN 08/12/18 08/29/23 Ondansetron [Ondansetron Odt] 8 mg PO PRN PRN 08/12/18 08/29/23 Tizanidine HCl [Zanaflex] 4 mg PO PRN PRN 08/12/18 08/29/23 diphenhydrAMINE [Benadryl] 50 mg PO PRN 08/12/18 lisinopriL [Lisinopril] 20 mg PO DAILY 08/12/18 08/29/23 Rimegepant Sulfate [Nurtec Odt] 1 tab PO ONCE 07/25/23 08/29/23 Calcium Carbonate [Tums (Calcium 1,000 mg PO PRN PRN 08/29/23 08/29/23 Carbonate 500mg)] Gabapentin [Neurontin] 300 - 600 mg PO TID PRN 08/29/23 08/29/23 oxyCODONE [Roxicodone] 5 - 10 mg PO Q6HR PRN 08/29/23 08/29/23 traZODone [Desyrel] 50 mg PO HS PRN 08/29/23 08/29/23 oxyCODONE [Roxicodone] 5 mg PO Q4-6H PRN #14 tablet 08/30/23 - Allergies Allergies/Adverse Reactions: Allergies Allergy/AdvReac Type Severity Reaction Status Date / Time Sulfa (Sulfonamide Allergy Intermediate Anaphylaxis Verified 08/29/23 21:33 Antibiotics) zolpidem [From Ambien] AdvReac Severe Unknown Verified 08/29/23 21:33 [id number]-[id number] AdvReac Rash Verified 08/29/23 21:33 [From Emgality Pen] - Social History Does the pt smoke?: No Smoking Status: Never smoker Does the pt drink ETOH?: No Does the pt have substance abuse?: No - Immunizations Immunizations are current?: Yes - POLST Patient has POLST: No POLST Status: Full Code PD ED PE NORMAL - Vitals Vital signs reviewed: Yes - General General: Alert and oriented X 3, Other (She appears uncomfortable due to chest pain.) - HEENT HEENT: PERRL, EOMI - Neck Neck: Supple, no meningeal sign, No bony TTP - Cardiac Cardiac: RRR, No murmur - Respiratory Respiratory: No respiratory distress, Clear bilaterally - Abdomen Abdomen: Non tender - Extremities Extremities: No edema, No calf tenderness / cord - Neuro Neuro: Alert and oriented X 3, hairspring assembler 2-12 intact, No motor deficit, No sensory deficit, Normal speech Eye Opening: Spontaneous Motor: Obeys Commands Verbal: Oriented GCS Score: 15 - Psych Psych: Normal mood, Normal affect Results - Vitals Vitals: Vital Signs - 24 hr 08/29/23 08/29/23 08/30/23 21:33 23:15 01:00 Temperature 36.5 C Heart Rate 87 77 74 Respiratory 22 10 L 19 Rate Blood Pressure 142/95 H 104/64 104/65 O2 Saturation 100 100 100 Oxygen O2 Source Room air - EKG (time done) 2125 EKG releavant findings:: EKG personally interpreted by author of this note. Relevant findings are: Rate: Rate (enter#) (102) Rhythm: Sinus tachycardia, LAE Jackson: Normal Intervals: Normal IN Ischemia: Non specific changes (quite a bit of artifact, no clear significant pathology) Computer interpretation: Agree with computer - Labs Labs: Laboratory Tests 08/29/23 08/29/23 21:40 21:40 WBC 11.0 H RBC 4.88 Hgb 14.1 Hct 41.7 MCV 85.5 MCH 28.9 MCHC 33.8 RDW 13.4 Plt Count 288 MPV 10.5 Neut # (Auto) 10.2 H Lymph # (Auto) 0.7 L [place] # (Auto) 0.1 Eos # (Auto) 0.0 Baso # (Auto) 0.0 Absolute Nucleated RBC 0.00 Nucleated RBC % 0.0 Sodium 136 Potassium 3.8 Chloride 100 L Carbon Dioxide 19 L Anion Gap 17.0 H BUN 32 H Creatinine 1.5 H Estimated GFR (MDRD) 37 L Glucose 142 H Calcium 10.4 H Total Bilirubin 0.9 AST 20 ALT 12 Alkaline Phosphatase 79 Troponin I High Sens 3.2 Total Protein 8.1 Albumin 5.1 Globulin 3.0 Albumin/Globulin Ratio 1.7 PD Medical Decision Making - ED course ED course: She presents with severe chest pain starting after vomiting related to a migraine. The chest pain hurts far more than her headache. Nothing in the history or physical to suggest PE. ACS is on the differential but less likely. Frankly the most concerning thing would be Boerhaave syndrome and will CT for same. On recheck at 11:15 PM she just got back from CT. Her nausea is much better but still having some chest pain. In the interim CBC notable for mild leukocytosis. She does have some EDDI on CMP. She has had some elevated creatinines in the past, this is the worst with a creatinine of 1.5. I think is probably due to a combination of dehydration from a few days worth of vomiting as she is taking Toradol at home. Medications were readministered, she had already had Dilaudid and droperidol with significant relief but requested another dose of Dilaudid and we will trial a GI cocktail as esophageal issue is high on the differential. Care to Dr. Gagnon pending CT read to rule out Boerhaave syndrome. Departure - Departure Disposition: 01 Home, Self Care Clinical Impression: Chest pain Qualifiers: Chest pain type: unspecified Qualified Code(s): R07.9 - Chest pain, unspecified Condition: Good Record reviewed to determine appropriate education?: Yes Instructions: ED Chest Pain Atypical Unkn Cause Prescriptions: oxyCODONE [Roxicodone] 5 mg PO Q4-6H PRN #14 tablet PRN Reason: Pain 5-7 Comments: Your labs today show mild kidney damage probably from dehydration. This should be rechecked by your physician within the week. Otherwise your CAT scan and troponin and EKG testing were unremarkable/normal. Call your doctor to arrange a follow-up appointment, make the next available appointment. In the interim, return anytime if worse or if new symptoms develop. [FOLLOWING NOTES ARE ADDENDUM ENTERED BY DR. GAGNON]: I have electronically submitted a prescription for oxycodone (narcotic/opiate pain medication) to the [facility] pharmacy in [place]. I am prescribing a short course of narcotic pain medication for you. These are potentially dangerous and addictive medications that should be used carefully. These medications may constipate you. Take an wvfa-pxz-uvpwacy stool softener (docusate) twice daily with plenty of water while taking these medications. If you go 24 hours without a bowel movement, take [id number]-shd-[id number] miralax, per package instructions. Do not drink or drive while taking these medications. If you received narcotic or sedating medications while in the emergency department, do not drive for 24 hours. Store this medication in a safe, secure place and out of reach of children. It is a violation of federal law to give or sell this medication to another person or to use in a manner other than prescribed. The ED will not refill narcotic prescriptions, including prescriptions lost or stolen. To dispose of unwanted medications: 1. [facility] at [address] in [place] has a medication drop box. They accept prescription medications (in pill form) Friday through Friday 9:00 a.m. to 5:00 p.m. 2. The [facility] [employer] [facility] accepts prescription medications (in pill form only) for disposal year round. Call for more information. 3. Contact the [facility] for the next [facility] sponsored prescription drug collection event. , [phone], or [phone]; Forms: PCP List Discharge Date/Time: 08/30/23 01:23
[2023-08-29] MEDS: DROPERIDOL 5 MG/2 ML VIAL IVP STA (21:39)
[2023-08-29] MEDS: HYDROmorphone 1 MG/ML CARPUJECT IVP STA ×2 (21:41→23:21)
[2023-08-29 21:46] VITALS: O2SAT 100
[2023-08-29] MEDS: SODIUM CHLORIDE 0.9% 1,000 ML IV STA ×2 (21:46→23:49)
[2023-08-29 21:50] LABS: BASOPHILS % (AUTO) 0.2 %; HCT - HEMATOCRIT 41.7 % (37.0-47.0); HGB - HEMOGLOBIN 14.1 g/dL (12.0-16.0); LYMPHOCYTES # (AUTO) 0.7 10^3/uL (1.5-3.5); LYMPHOCYTES % (AUTO) 6.1 %; MEAN CORPUSCULAR HEMOGLOBIN 28.9 pg (27.0-31.0); MEAN CORPUSCULAR HGB CONC 33.8 g/dL (32.0-36.0); MEAN CORPUSCULAR VOLUME 85.5 fL (81.0-99.0); MEAN PLATELET VOLUME 10.5 fL (7.9-10.8); MONOCYTES # (AUTO) 0.1 10^3/uL (0.0-1.0); MONOCYTES % (AUTO) 1.3 %; NEUTROPHILS # (AUTO) 10.2 10^3/uL (1.5-6.6); NEUTROPHILS % (AUTO) 92.1 %; PLT - PLATELET COUNT 288 10^3/uL (130-450); RED BLOOD COUNT 4.88 10^6/uL (4.20-5.40); RED CELL DISTRIBUTION WIDTH 13.4 % (12.0-15.0)
[2023-08-29 22:09] LABS: POTASSIUM 3.8 mmol/L (3.5-4.5)
[2023-08-29 22:10] LABS: ALBUMIN 5.1 g/dL (3.2-5.5); ALBUMIN/GLOBULIN RATIO 1.7 (1.0-2.2); BILIRUBIN,TOTAL 0.9 mg/dL (0.2-1.0); CALCIUM 10.4 mg/dL (8.5-10.3); CREATININE 1.5 mg/dL (0.6-1.3); TOTAL PROTEIN 8.1 g/dL (6.4-8.9)
[2023-08-29 22:28] LABS: TROPONIN I HIGH SENSITIVITY 3.2 ng/L (2.3-14.8)
[2023-08-29] MEDS ORDERED: iohexoL-300 100 ML VIAL ONE (22:38)
[2023-08-29] MEDS: iohexoL-300 100 ML VIAL IVP ONE (23:21)
[2023-08-29] MEDS: MAG HYDROX/AL HYDROX/SIMETH 30 ML UDC PO STA (23:21)
[2023-08-29] MEDS: LIDOCAINE VISCOUS 2% 15 ML UDC MM STA (23:21)
--- NOTE | 2023-08-29 23:39 | CT Report ---
PROCEDURE: Chest W INDICATIONS: CHEST PAIN P VOMIT CONTRAST: 100 ML OMNI 300 TECHNIQUE: After the administration of intravenous contrast, a CT scan of the chest was performed. Images were recorded and evaluated at appropriate window settings. Reformats: axial MIP of the chest, coronal and sagittal. For radiation dose reduction, the following was used: automated exposure control, adjustme nt of mA and/or kV according to patient size. COMPARISON: Chest radiograph dated 07/09/2023 and 03/27/2021. FINDINGS: Image quality: Diagnostic. Chest wall and lower neck: No thyroid nodule which requires sonographic follow up. No breast mass. No axillary or supraclavicular adenopathy by size. Lungs and pleura: There is biapical scarring. No consolidation. No pleural effusions. No pneumothora x. No suspicious pulmonary nodules which require follow up. Mediastinum: Heart size is normal. No pericardial effusion. No large vessel abnormality. No mediastin al adenopathy by size criteria. Bones: No aggressive osseous abnormality. Upper Abdomen: Unremarkable. IMPRESSION: 1. Biapical scarring. Bilateral lungs are otherwise clear. No pleural effusion or pneumothorax. Airwa y is patent. 2. No mediastinal or hilar lymphadenopathy. Heart size is normal. No thoracic aortic aneurysm. Reviewed by: Sukhjinder Michel MD on 08/29/2023 11:37 PM PDT Approved by: Sukhjinder Michel MD on 08/29/2023 11:37 PM PDT Station ID: [id number]
--- NOTE | 2023-08-30 00:51 | ED Physician Documentation ---
ED Addendum - Addendum Addendum: 08/30/23 00:49 I received signout/turnover of care on this patient from Dr. Schneider; please see his note for complete H&P. Majority of tests were completed by the time of this turnover of care, with the only test pending being CT of the chest. The patient had developed some chest pain temporally related to vomiting, and thus the CT was ordered predominantly out of concern for Boerhaave syndrome. Fortunately, there are are no acute abnormalities on this study (incidental/noncontributory note of biapical scarring). I reevaluated this patient and find her resting comfortably/NAD. Results of CT discussed with patient. She says she still has anti-nausea medication at home but has run out of prescription pain medication and I am thus providing a take- home pack of Percocet and a short course of oxycodone is e-prescribed to patient's pharmacy of choice ([email or web address] in [place]). Return precautions reviewed. I emphasized the need for follow-up with PCP as soon as can be arranged not only for reevaluation the symptoms but also her abnormal BUN/creatinine/GFR.
[2023-08-30] MEDS: oxyCODONE/ACET 5/325 Prepack 4 PO STA (01:06)
[2023-08-30 01:10] VITALS: BP 104/65
== END 2023-08-30 01:23 | disposition home or self-care (01) ==
LOC: ED 21:02
DX: R07.9 Chest pain, unspecified (principal); N17.9 Acute kidney failure, unspecified; J98.4 Other disorders of lung; Z76.0 Encounter for issue of repeat prescription
CPT/HCPCS: 36415; 71260; 80053; 84484; 85025; 93005; 96361; 96374; 96375; 96376; 99284; 99285; A9270; J1170; Q9967